=== PATIENT | female | born 1980 | race African-American/Black ===

== ENCOUNTER 2016-08-30 09:46 | Emergency (ER) | payer MEDICAID ==
[2016-08-30] MEDS ORDERED: OXYCODONE-ACETAMINOPHEN 5-325 MG TABLET PO ONE (09:52)
--- NOTE | 2016-08-30 09:52 | ER Document Report ---
ED Medical Screen (RME) - General Chief Complaint: Abscess Stated Complaint: ABSCESS Time seen by provider: 09:50 Mode of Arrival: Ambulatory Information source: Patient Notes: 36 yo female presents to ed for abscess to right abdomen and left arm TRAVEL OUTSIDE OF THE [place] IN LAST 30 DAYS: No - Related Data Allergies/Adverse Reactions: meperidine HCl [From Demerol] Allergy (Severe, Verified 07/17/16 09:52) Anaphylaxis prednisone [Prednisone] Allergy (Severe, Verified 07/17/16 09:52) swell-up morphine [Morphine] Adverse Reaction (Mild, Verified 07/17/16 09:52) Hives Past Medical History - Past Medical History Cardiac Medical History: Reports: Hx Hypertension Denies: Hx Coronary Artery Disease, Hx Heart Attack Pulmonary Medical History: Reports: Hx Asthma Denies: Hx Bronchitis, Hx COPD, Hx Pneumonia - Sarcoidosis Neurological Medical History: Reports: Hx Migraine. Denies: Hx Cerebrovascular Accident, Hx Seizures Endocrine Medical History: Denies: Hx Hyperthyroidism, Hx Hypothyroidism Renal/ Medical History: Reports: Hx Ovarian Cysts GI Medical History: Reports: Hx Gastritis, Hx Hiatal Hernia, Hx Ulcer - H pylori , sarcoidosis, fibromyalgia Musculoskeltal Medical History: Reports Hx Arthritis, Reports Hx Fibromyalgia Psychiatric Medical History: Reports: Hx Depression Past Surgical History: Reports: Hx Gynecologic Surgery - polyps, ovarian cysts, Hx Orthopedic Surgery - ganglion cyst, Hx Tubal Ligation - Immunizations Immunizations up to date: Yes Hx Diphtheria, Pertussis, Tetanus Vaccination: Yes - January 2015
[2016-08-30] MEDS ORDERED: LIDOCAINE 1%/EPINEPHRINE INJ 20 ML VIAL INJ ONE (10:34)
--- NOTE | 2016-08-30 10:46 | ER Document Report ---
ED General - General Chief Complaint: Abscess Stated Complaint: ABSCESS Time seen by provider: 10:30 Mode of Arrival: Ambulatory Information source: Patient Notes: 36-year-old female claims a one-week history of pain and redness and swelling to her left axilla and her right lower abdomen typical for what she's had in the past with abscesses requiring drainage. She reports having had chills 2 days ago and one episode of vomiting but denies currently having fever, chills, nausea, vomiting, cough, shortness breath, headache, or pain elsewhere. Physical Exam: General: Alert, appears well. HEENT: Normocephalic. Atraumatic. PERRLA. Extraocular movements intact. Oropharynx clear. Neck: Supple. Non-tender. Respiratory: No respiratory distress. Clear and equal breath sounds bilaterally. Cardiovascular: Regular rate and rhythm. Abdominal: Normal Inspection. Soft, 1 cm area of erythema with central pustule to the right lower abdomen with no surrounding crepitance or fluctuance.. No distension. Normal Bowel Sounds. Back: Non-tender. No deformity or step off. Extremities: Moves all four extremities. Upper extremities: Normal inspection. Non-tender. Normal color. Normal ROM. Normal temperature. Left axilla has a 2 x 2 centimeter area of erythema induration firmness and tenderness no surrounding crepitance or fluctuance. Lower extremities: Normal inspection. Non-tender. No edema. Normal color. Normal ROM. Normal temperature. Neurological: Speech clear mentation normal Psychological: Normal affect. Normal Mood. Skin: Warm. Dry. Normal color. TRAVEL OUTSIDE OF THE [place] IN LAST 30 DAYS: No - Related Data Allergies/Adverse Reactions: meperidine HCl [From Demerol] Allergy (Severe, Verified 07/17/16 09:52) Anaphylaxis prednisone [Prednisone] Allergy (Severe, Verified 07/17/16 09:52) swell-up morphine [Morphine] Adverse Reaction (Mild, Verified 07/17/16 09:52) Hives Past Medical History - General Information source: Patient - Social History Smoking Status: Former Smoker Family History: Arthritis, DM, Hypertension, Malignancy Patient has suicidal ideation: No Patient has homicidal ideation: No - Past Medical History Cardiac Medical History: Reports: Hx Hypertension Denies: Hx Coronary Artery Disease, Hx Heart Attack Pulmonary Medical History: Reports: Hx Asthma Denies: Hx Bronchitis, Hx COPD, Hx Pneumonia - Sarcoidosis Neurological Medical History: Reports: Hx Migraine. Denies: Hx Cerebrovascular Accident, Hx Seizures Endocrine Medical History: Denies: Hx Hyperthyroidism, Hx Hypothyroidism Renal/ Medical History: Reports: Hx Ovarian Cysts. Denies: Hx Peritoneal Dialysis GI Medical History: Reports: Hx Gastritis, Hx Hiatal Hernia, Hx Ulcer - H pylori , sarcoidosis, fibromyalgia Musculoskeltal Medical History: Reports Hx Arthritis, Reports Hx Fibromyalgia Psychiatric Medical History: Reports: Hx Depression Past Surgical History: Reports: Hx Gynecologic Surgery - polyps, ovarian cysts, Hx Orthopedic Surgery - ganglion cyst, Hx Tubal Ligation - Immunizations Immunizations up to date: Yes Hx Diphtheria, Pertussis, Tetanus Vaccination: Yes - January 2015 Review of Systems - Review of Systems Constitutional: See HPI EENT: denies: Ear pain, Throat pain Cardiovascular: denies: Chest pain Respiratory: denies: Cough, Short of breath Gastrointestinal: denies: Nausea Genitourinary: denies: Burning, Dysuria Musculoskeletal: denies: Back pain Hematologic/Lymphatic: denies: Swollen glands Neurological/Psychological: denies: Weakness, Numbness Physical Exam - Vital signs Vitals: Temp Pulse Resp BP Pulse Ox 98.2 F 92 20 131/86 H 98 08/30/16 09:48 08/30/16 09:48 08/30/16 09:48 08/30/16 09:48 08/30/16 09:48 Course - Re-evaluation Re-evalutation: 08/30/16 11:37 Patient tolerated I&D of 2 abscess sites without difficulty. She was discharged on antibiotics and medication for pain and instructed return to emergency department in 2 days for wound recheck and possible repacking in the left axilla - Vital Signs Vital signs: Temp Pulse Resp BP Pulse Ox 98.2 F 91 20 131/86 H 98 08/30/16 09:51 08/30/16 09:51 08/30/16 09:51 08/30/16 09:51 08/30/16 09:51 Procedures - Incision and Drainage Left Arm Time completed: 11:35 Type: Simple Anesthetic type: 1% Lidocaine w/epi mL's of anesthetic: 1 Blade size: 11 I&D procedure: Betadine prep applied Incision Method: Incision made by scalpel Notes: 08/30/16 11:35 1.5 cm incision performed after removal of hair around the incision site. 2 mL purulent material returned. Wound packed with iodoform Right Lower Abdomen Type: Simple Anesthetic type: 1% Lidocaine w/epi mL's of anesthetic: 1 Blade size: 11 I&D procedure: Betadine prep applied Incision Method: Incision made by scalpel Notes: 08/30/16 11:37 1 mL of purulent material returned. Abscess cavity probed no deeper areas were identified wound was shallow enough that it does not not require packing Discharge - Discharge Clinical Impression: Abscess Condition: Stable Disposition: HOME, SELF-CARE Instructions: Abscess ([facility]) Additional Instructions: Cellulitis You have an infection of your skin and underlying soft tissues called cellulitis. This is due to bacteria, which can enter through any break in the skin, or even through an irritated hair follicle. Untreated, cellulitis will usually worsen. Antibiotics are required. Usually, warm packs or warm soaks, and elevation of the infected area are recommended. You should start getting better within 24 to 36 hours. Most infections respond quickly to the right medication. Follow-up care is important, however, to check for abscess (boil) formation, unsuspected foreign body, or resistant infection. If you develop fever, chills, or if the area of infection is becoming rapidly more swollen or painful, call the doctor at once. Take antibiotics as prescribed. Return to emergency department in 2 days for wound recheck and possible repacking of the abscess underneath your left arm Prescriptions: Cephalexin Monohydrate [Keflex 500 mg Capsule] 500 mg PO QID #40 capsule Sulfamethoxazole/Trimethoprim [Bactrim Ds Tablet] 1 each PO BID #20 tablet Tramadol HCl 50 mg PO BID PRN #10 tablet PRN Reason: For Pain Referrals: CHAD MUJICA, [facility] [Primary Care Provider] - Follow up as needed
[2016-08-30 12:15] VITALS: BP 132/74
== END 2016-08-30 12:15 | disposition home or self-care (01) ==
LOC: ER 09:46
PROC: 0H9CXZZ Drainage of Left Upper Arm Skin, External Approach (ICD-10-PCS; principal; 2016-08-30)
DX: L02.412 Cutaneous abscess of left axilla (principal); R11.10 Vomiting, unspecified; Z87.891 Personal history of nicotine dependence
CPT/HCPCS: 99283; 10060; J3490

== ENCOUNTER 2016-09-16 09:34 | Emergency (ER) | payer MEDICAID ==
[2016-09-16] MEDS ORDERED: PROMETHAZINE HCL 25 MG TABLET PO ONE (09:59)
[2016-09-16] MEDS ORDERED: OXYCODONE-ACETAMINOPHEN 5-325 MG TABLET PO ONE (09:59)
[2016-09-16] MEDS ORDERED: LIDOCAINE 1%/EPINEPHRINE INJ 20 ML VIAL INJ ONE (09:59)
--- NOTE | 2016-09-16 10:08 | ER Document Report ---
ED Skin Rash/Insect Bite/Abscs - General Chief Complaint: Abscess Stated Complaint: ARM PAIN Notes: Patient has a painful swelling in the left axilla. She says that 2 weeks ago she was here and this area was opened and drained and she was put on Bactrim and Keflex. She's only been able to take the Keflex because she says she is allergic to Bactrim, it causes her to break out in a rash. She says that the area did not ever completely clear up and as swollen back up and become painful again. It has not drained. She has had this area drained one other time back in the fall of this past year (2016). Denies fever. TRAVEL OUTSIDE OF THE [place] IN LAST 30 DAYS: No - Related Data Allergies/Adverse Reactions: meperidine HCl [From Demerol] Allergy (Severe, Verified 07/17/16 09:52) Anaphylaxis prednisone [Prednisone] Allergy (Severe, Verified 07/17/16 09:52) swell-up morphine [Morphine] Adverse Reaction (Mild, Verified 07/17/16 09:52) Hives Past Medical History - Social History Smoking Status: Never Smoker Chew tobacco use (# tins/day): No Frequency of alcohol use: None Drug Abuse: None Family History: Reviewed & Not Pertinent, Arthritis, DM, Hypertension, Malignancy Patient has suicidal ideation: No Patient has homicidal ideation: No - Past Medical History Cardiac Medical History: Reports: Hx Hypertension Pulmonary Medical History: Reports: Hx Asthma Neurological Medical History: Reports: Hx Migraine Renal/ Medical History: Reports: Hx Ovarian Cysts GI Medical History: Reports: Hx Gastritis, Hx Hiatal Hernia, Hx Ulcer - H pylori , sarcoidosis, fibromyalgia Musculoskeltal Medical History: Reports Hx Arthritis, Reports Hx Fibromyalgia, Reports Other - Sjogren's syndrome, sarcoidosis Psychiatric Medical History: Reports: Hx Depression Past Surgical History: Reports: Hx Gynecologic Surgery - polyps, ovarian cysts, Hx Orthopedic Surgery - ganglion cyst, Hx Tubal Ligation - Immunizations Immunizations up to date: Yes Hx Diphtheria, Pertussis, Tetanus Vaccination: Yes - January 2015 Review of Systems - Review of Systems Notes: REVIEW OF SYSTEMS: CONSTITUTIONAL : Denies fever. EENT: Denies eye, ear, nose or mouth or throat pain or other symptoms. CARDIOVASCULAR: Denies chest pain. RESPIRATORY: Denies cough, chest congestion, or shortness of breath. GASTROINTESTINAL: Denies abdominal pain or nausea, vomiting, or diarrhea. GENITOURINARY: Denies difficulty or painful urinating, urinary frequency, blood in urine. MUSCULOSKELETAL: Denies back or neck pain. Denies joint pain or swelling. SKIN: See history of present illness. NEUROLOGICAL: Denies LOC or altered mental status. Denies headache. Denies sensory loss or motor deficits. PSYCHIATRIC: Denies anxiety or stress. Denies depression. ALL OTHER SYSTEMS REVIEWED AND NEGATIVE. Physical Exam - Vital signs Vitals: Resp 14 09/16/16 10:00 Interpretation: Normal - Temp 98.0, pulse 95, blood pressure 136/85, respirations 24, O2 sat 98%. - Notes Notes: PHYSICAL EXAMINATION: GENERAL: Well-appearing, in no acute distress. Vital signs are all normal. HEAD: Atraumatic, normocephalic. LUNGS: Breath sounds clear and equal bilaterally. HEART: Regular rate and rhythm without murmurs. ABDOMEN: Soft, nontender. No guarding or rebound. EXTREMITIES: Normal range of motion without pain. NEUROLOGICAL: Normal speech, normal gait. Normal sensory, motor, and reflex exams. Awake, alert, and oriented x3. Cranial nerves normal. PSYCH: Normal mood, normal affect. SKIN: Warm, dry, no rashes. Left axilla has a couple of scars most likely from previous procedures performed in this area. Towards the anterior aspect of the left axilla is a swollen tender area that feels slightly fluctuant. No other areas of fluctuance noted. Course - Re-evaluation Re-evalutation: 09/16/16 21:44 I am deferring putting the patient on any antibiotic until we get the culture results. These are minor abscesses and were easy to drain and pack and since the patient reports being allergic to sulfa, I'm going to wait and not start her on another antibiotic unless she is not doing well in a couple of days. - Vital Signs Vital signs: Temp Pulse Resp BP Pulse Ox 98.2 F 92 16 132/80 H 98 09/16/16 11:46 09/16/16 11:46 09/16/16 11:46 09/16/16 11:46 09/16/16 11:46 Procedures - Incision and Drainage Left Arm Axilla Type: Simple Anesthetic type: 1% Lidocaine w/epi Blade size: 11 I&D procedure: Betadine prep applied, Iodoform packing placed Incision Method: Incision made by scalpel Notes: 09/16/16 21:43 2 small pockets with fluctuance felt anesthetized and opened and widened with a hemostat. Irrigated each of the pockets and then packed them with iodoform gauze. Adult Front & Back picture: 1 - Small abscesses (2) in the left axilla, opened, drained, and packed. Discharge - Discharge Clinical Impression: Abscess of left axilla Condition: Stable Disposition: HOME, SELF-CARE Additional Instructions: ABSCESS: You have an abscess (boil). This a pus-forming infection, usually due to staph. Some boils may be left to drain on their own, but most require lancing. From the time the tender lump first appears, it may be three or four days before the abscess is ready to elias. Local heat and rest help at this stage of treatment. An antibiotic may prevent spread of the infection. Once the abscess is opened, packing may be placed into it. This is done so pus is not sealed inside by premature closure of the cavity. The packing will be removed at your follow-up visit or you may be advised to remove it yourself at home. Sometimes this packing must be replaced a few times during healing. The wound will heal with surprisingly little scar. Depending on the size and location of an abscess, healing can take one to four weeks. You may shower and wash the area around the incision site two or three times a day. Antibiotics may be prescribed, but are usually not necessary after an abscess has been drained. If you develop fever, chills, worsening pain, or increasing swelling in the area, call the doctor or return immediately. POST INCISION AND DRAINAGE: You have had an incision made to allow drainage of an abscess. The incision must remain open so that pus and debris can drain from the wound. If the abscess cavity is large, packing is placed. This keeps the tissues from collapsing and trapping pus inside, while the body shrinks the cavity. The packing may need to be replaced every day or two. The physician will instruct you on the packing. Keep a bulky dressing over the area. Replace it if it becomes saturated with blood or pus. Do not disturb the packing (if present). You may shower and cleanse the area with gentle soap and warm water two or three times a day. Local warmth may be soothing, and may promote faster healing. Return if you develop high fever or chills, or if you note spreading redness, increasing swelling, or increasing tenderness. ORAL NARCOTIC MEDICATION: You have been given a prescription for pain control. This medication is a narcotic. It's best taken with food, as nausea can result if taken on an empty stomach. Don't operate machinery or drive within six hours of taking this medication. Do not combine this medicine with alcohol, or with any medication which can cause sedation (such as cold tablets or sleeping pills) unless you get permission from the physician. Narcotics tend to cause constipation. If possible, drink plenty of fluids and eat a diet high in fiber and fruits. Antinausea Medication You have been given a medication to suppress nausea and vomiting. This type of medication can be given as a shot, pill, or suppository. It will usually last for many hours. Pills and shots usually last six to eight hours, suppositories last about 12 hours. For the typical illness, only one or two doses of the medication may be necessary. Mild lightheadedness may occur. This type of medicine can cause drowsiness. Do not drive or operate dangerous machinery while under its influence. Do not mix with alcohol. See your doctor at once if you have muscle spasms or tightness, or uncontrollable motions (particularly of the neck, mouth, or jaw). Persistent vomiting or severe lightheadedness should also be evaluated by the physician. FOLLOW-UP CARE: Most simple abscesses will not require a follow up visit. If you had packing placed in the abscess, remove it as instructed by the physician. If you have been referred to a physician for follow-up care, call the physicians office for an appointment as you were instructed or within the next two days. If you experience worsening or a significant change in your symptoms, return to the Emergency Department at any time for re-evaluation. Once a day get in the shower and let some warm shower water flow on to the left armpit for about 5 minutes. Then, throughout the day, apply warm wet compresses like a hand towel to the area for 20 or 30 minutes at least or times a day area On Tuesday, when you get in the shower and let the water run on the area, you can pull both of the packings out and discarded them in the trash. I will call you on Tuesday regarding the culture results and to see if you need to be put on an antibiotic. If you do not hear from me on Tuesday by 3 or 4:00 in the afternoon, call me on my cell phone number which I have given you on my card. Prescriptions: Oxycodone HCl/Acetaminophen [Percocet 5-325 mg Tablet] 1 - 2 tab PO Q4H PRN #15 tablet PRN Reason: Promethazine HCl [Phenergan 25 mg Tablet] 1 - 2 tab PO Q6H PRN #15 tablet PRN Reason: Referrals: CHAD MUJICA, [facility] [Primary Care Provider] - Follow up as needed
[2016-09-16 11:47] VITALS: BP 132/80
== END 2016-09-16 11:47 | disposition home or self-care (01) ==
LOC: ER 09:34
PROC: 0H9CXZZ Drainage of Left Upper Arm Skin, External Approach (ICD-10-PCS; principal; 2016-09-16)
DX: L02.412 Cutaneous abscess of left axilla (principal); I10 Essential (primary) hypertension; Z98.51 Tubal ligation status; Z88.6 Allergy status to analgesic agent
CPT/HCPCS: 99283; 87070; 87205; 87077; 87186; 10060; J3490 ×2

== ENCOUNTER 2016-10-28 14:07 | Emergency (ER) | payer MEDICAID ==
[2016-10-28] MEDS ORDERED: ONDANSETRON 4 MG TAB.RAPDIS PO ONE (14:17)
--- NOTE | 2016-10-28 14:18 | ER Document Report ---
ED Medical Screen (RME) - General Stated Complaint: NAUSEA,DIARRHEA,ABDOMINAL PAIN Mode of Arrival: Ambulatory Information source: Patient Notes: Patient presents complaining of nausea, vomiting and diarrhea off and on for the past 2 weeks. Patient states symptoms restarted 3 days ago. Patient complains of generalized abdominal pain. Patient reports chills without fever. Patient concerned she is dehydrated hx: Sarcoidosis, Sjogren's syndrome, fibromyalgia I have greeted and performed a rapid initial assessment of this patient. A comprehensive ED assessment and evaluation of the patient, analysis of test results and completion of the medical decision making process will be conducted by additional ED providers. TRAVEL OUTSIDE OF THE [place] IN LAST 30 DAYS: No - Related Data Allergies/Adverse Reactions: meperidine HCl [From Demerol] Allergy (Severe, Verified 07/17/16 09:52) Anaphylaxis prednisone [Prednisone] Allergy (Severe, Verified 07/17/16 09:52) swell-up morphine [Morphine] Adverse Reaction (Mild, Verified 07/17/16 09:52) Hives Past Medical History - Past Medical History Cardiac Medical History: Reports: Hx Hypertension Pulmonary Medical History: Reports: Hx Asthma Denies: Hx Pneumonia - Sarcoidosis Neurological Medical History: Reports: Hx Migraine Renal/ Medical History: Reports: Hx Ovarian Cysts. Denies: Hx Peritoneal Dialysis GI Medical History: Reports: Hx Gastritis, Hx Hiatal Hernia, Hx Ulcer - H pylori , sarcoidosis, fibromyalgia Musculoskeltal Medical History: Reports Hx Arthritis, Reports Hx Fibromyalgia Psychiatric Medical History: Reports: Hx Depression Past Surgical History: Reports: Hx Gynecologic Surgery - polyps, ovarian cysts, Hx Orthopedic Surgery - ganglion cyst, Hx Tubal Ligation - Immunizations Immunizations up to date: Yes Hx Diphtheria, Pertussis, Tetanus Vaccination: Yes - January 2015 Physical Exam - Vital signs Vitals: Temp Pulse Resp BP Pulse Ox 98.5 F 71 16 143/99 H 99 10/28/16 14:14 10/28/16 14:14 10/28/16 14:14 10/28/16 14:14 10/28/16 14:14 - Abdominal Tenderness: Tender - Was happening Course - Vital Signs Vital signs: Temp Pulse Resp BP Pulse Ox 98.5 F 71 16 143/99 H 99 10/28/16 14:14 10/28/16 14:14 10/28/16 14:14 10/28/16 14:14 10/28/16 14:14
[2016-10-28 15:06] LABS: ABSOLUTE EOSINOPHILS # (AUTO) 0.1 10^3/uL (0.0-0.6); ABSOLUTE LYMPHOCYTES (AUTO) 2.7 10^3/uL (0.5-4.7); ABSOLUTE MONOCYTES (AUTO) 0.3 10^3/uL (0.1-1.4); ABSOLUTE NEUT (AUTO) 3.4 10^3/uL (1.7-8.2); BASOPHILS % (AUTO) 0.7 % (0-2); EOSINOPHILS % (AUTO) 1.1 % (0-6); HEMOGLOBIN 13.5 g/dL (12.0-15.5); HGB HCT DIFFERENCE 1.5; MEAN CORPUSCULAR HGB CONC 34.7 g/dL (32.0-36.0); MEAN CORPUSCULAR VOLUME 78 fl (80-97); MONOCYTES % (AUTO) 4.1 % (3-13); SEGMENTED NEUTROPHILS % (AUTO) 52.1 % (42-78); WHITE BLOOD COUNT 6.5 10^3/uL (4.0-10.5)
[2016-10-28 15:13] LABS: APPEARANCE,URINE SLIGHTLY-CLOUDY; BILIRUBIN,URINE NEGATIVE (NEGATIVE); GLUCOSE, URINE NEGATIVE (NEGATIVE); KETONES,URINE NEGATIVE (NEGATIVE); LEUKOCYTE ESTERASE,URINE SMALL (NEGATIVE); NITRITE,URINE NEGATIVE (NEGATIVE); PROTEIN,URINE NEGATIVE (NEGATIVE); UROBILINOGEN,URINE NEGATIVE mg/dL (<2.0)
[2016-10-28 15:37] LABS: ALANINE AMINOTRANSFERASE 26 U/L (9-52); ALBUMIN 4.6 g/dL (3.5-5.0); ALKALINE PHOSPHATASE 68 U/L (38-126); ANION GAP 14 (5-19); ASPARTATE AMINO TRANSFERASE 21 U/L (14-36); BILIRUBIN,DIRECT 0.3 mg/dL (0.0-0.4); BILIRUBIN,TOTAL 0.5 mg/dL (0.2-1.3); BLOOD UREA NITROGEN 7 mg/dL (7-20); CALCIUM 9.9 mg/dL (8.4-10.2); CARBON DIOXIDE 22 mmol/L (22-30); CHLORIDE 108 mmol/L (98-107); CREATININE RESULT 0.61 mg/dL (0.52-1.25); GLUCOSE 78 mg/dL (75-110); LIPASE 80.1 U/L (23-300); POTASSIUM 4.1 mmol/L (3.6-5.0); TOTAL PROTEIN 8.1 g/dL (6.3-8.2)
--- NOTE | 2016-10-28 16:02 | ER Document Report ---
ED GI/ - General Time seen by provider: 16:05 Mode of Arrival: Ambulatory TRAVEL OUTSIDE OF THE [place] IN LAST 30 DAYS: No - HPI Patient complains to provider of: Abdominal pain, Diarrhea. No: Vomiting Onset: Other - see HPI note Timing/Duration: Persistent Quality of pain: Sharp Associated symptoms: Diarrhea, Nausea. denies: Vomiting <MILES JUAREZ - Last Filed: 10/28/16 18:04> <MÓNICA PALACIOS - Last Filed: 10/28/16 18:18> - General Chief Complaint: Abdominal Pain Stated Complaint: NAUSEA,DIARRHEA,ABDOMINAL PAIN Notes: Patient is a 36 year old female presenting to the emergency department for diarrhea, nausea, and abdominal pain. Patient states she has had these symptoms for the past 3 weeks. Patient states her abdominal pain started first and then the nausea and diarrhea were onset for about 2 weeks. Patient states her symptoms stopped for a few days and then started again on Tuesday. Patient states today she has had the abdominal pain, nausea, and diarrhea x6. Patient's diarrhea is watery, mucus like, and sometimes very dark/black. Patient states she has sharp abdominal pain and then the diarrhea comes next. Patient took pepto-bismol with no relief and has been drinking maranda roopa for her nausea. Patient denies any vomiting or dysuria symptoms. Patient has a history of IBS but states that her current symptoms are not consistent with her IBS. Patient's PCP is Dr. Joseph. (MILES JUAREZ) - Related Data Allergies/Adverse Reactions: meperidine HCl [From Demerol] Allergy (Severe, Verified 07/17/16 09:52) Anaphylaxis prednisone [Prednisone] Allergy (Severe, Verified 07/17/16 09:52) swell-up sulfamethoxazole [From Bactrim] Allergy (Verified 10/28/16 14:17) trimethoprim [From Bactrim] Allergy (Verified 10/28/16 14:17) morphine [Morphine] Adverse Reaction (Mild, Verified 07/17/16 09:52) Hives Past Medical History - General Information source: Patient - Social History Smoking Status: Former Smoker Chew tobacco use (# tins/day): No Frequency of alcohol use: None Drug Abuse: None Family History: Reviewed & Not Pertinent, Arthritis, DM, Hypertension, Malignancy Patient has suicidal ideation: No Patient has homicidal ideation: No - Past Medical History Cardiac Medical History: Reports: Hx Hypertension Pulmonary Medical History: Reports: Hx Asthma Comment Only: Hx Pneumonia - Sarcoidosis Neurological Medical History: Reports: Hx Migraine Renal/ Medical History: Reports: Hx Ovarian Cysts GI Medical History: Reports: Hx Gastritis, Hx Hiatal Hernia, Hx Ulcer - H pylori , sarcoidosis, fibromyalgia Musculoskeltal Medical History: Reports Hx Arthritis, Reports Hx Fibromyalgia Psychiatric Medical History: Reports: Hx Depression Past Surgical History: Reports: Hx Gynecologic Surgery - polyps, ovarian cysts, Hx Orthopedic Surgery - ganglion cyst, Hx Tubal Ligation - Immunizations Immunizations up to date: Yes Hx Diphtheria, Pertussis, Tetanus Vaccination: Yes - January 2015 <MILES JUAREZ - Last Filed: 10/28/16 18:04> Review of Systems - Review of Systems Constitutional: No symptoms reported EENT: No symptoms reported Cardiovascular: No symptoms reported Respiratory: No symptoms reported Gastrointestinal: See HPI, Abdominal pain, Diarrhea, Nausea. denies: Vomiting Genitourinary: No symptoms reported Female Genitourinary: No symptoms reported Musculoskeletal: No symptoms reported Skin: No symptoms reported Hematologic/Lymphatic: No symptoms reported Neurological/Psychological: No symptoms reported -: Yes All other systems reviewed and negative <MILES JUAREZ - Last Filed: 10/28/16 18:04> Physical Exam - Vital signs Interpretation: Hypertensive <MILES JUAREZ - Last Filed: 10/28/16 18:04> <MÓNICA PALACIOS - Last Filed: 10/28/16 18:18> - Vital signs Vitals: Temp Pulse Resp BP Pulse Ox 98.5 F 71 16 143/99 H 99 10/28/16 14:14 10/28/16 14:14 10/28/16 14:14 10/28/16 14:14 10/28/16 14:14 - Notes Notes: GENERAL: Well-appearing, well-nourished and in no acute distress HEAD: Atraumatic, normocephalic EYES: Pupils equal round and reactive to light, extraocular movements intact, sclera anicteric, no conjunctival injection or discharge ENT: Nares patent, oropharynx clear without exudates, moist mucous membranes NECK: Normal range of motion, supple without lymphadenopathy LUNGS: Breath sounds clear to auscultation bilaterally and equal. No wheezes rales or rhonchi HEART: Regular rate and rhythm without murmurs ABDOMEN: Soft, mild generalized tenderness throughout, hyperactive bowel sounds. No guarding, no rebound, no rigidity. No masses appreciated. No [place] sign. BACK: No CVA tenderness. EXTREMITIES: Normal range of motion, no calf tenderness, no edema NEUROLOGICAL: Cranial nerves grossly intact. Normal speech, Normal sensory and motor exams. No gross cerebellar abnormalities PSYCH: Normal mood, normal affect SKIN: Warm, Dry, normal turgor, no lesions noted (MILES JUAREZ) Course - Laboratory Result Diagrams: 10/28/16 14:20 10/28/16 14:20 <MILES JUAREZ - Last Filed: 10/28/16 18:04> - Laboratory Result Diagrams: 10/28/16 14:20 10/28/16 14:20 <MÓNICA PALACIOS - Last Filed: 10/28/16 18:18> - Re-evaluation Re-evalutation: 10/28/16 18:12 Despite the patient having significant diarrhea at home she has not had any here even with by mouth fluids. She is having no dysuria but does have some WBCs so we'll place her on Cipro, which could help the diarrhea she is having some mucoid stools as well. She understands warning signs to watch for and will return if she is worsening. She appears well-hydrated, nontoxic with a non -peritoneal abdomen. (MÓNICA PALACIOS) - Vital Signs Vital signs: Temp Pulse Resp BP Pulse Ox 98.5 F 71 16 143/99 H 99 10/28/16 14:14 10/28/16 14:14 10/28/16 14:14 10/28/16 14:14 10/28/16 14:14 - Laboratory Laboratory results interpreted by me: 10/28/16 10/28/16 10/28/16 14:20 14:20 14:20 MCV 78 L RDW 15.0 H Chloride 108 H Urine Blood SMALL H Ur Leukocyte Esterase SMALL H Discharge <MILES JUAREZ - Last Filed: 10/28/16 18:04> <MÓNICA PALACIOS - Last Filed: 10/28/16 18:18> - Discharge Clinical Impression: Diarrhea Qualifiers: Diarrhea type: unspecified type Qualified Code(s): R19.7 - Diarrhea, unspecified Abdominal pain Qualifiers: Abdominal location: generalized Qualified Code(s): R10.84 - Generalized abdominal pain Condition: Good Disposition: HOME, SELF-CARE Instructions: Antispasmodics ([facility]), Antinausea Medication ([facility]) Prescriptions: Hyoscyamine Sulfate [Levsin 0.125 Tablet] 0.25 mg PO Q6HP PRN #14 tablet PRN Reason: Ciprofloxacin HCl [Cipro 500 mg Tablet] 500 mg PO BID #6 tablet Promethazine HCl [Phenergan 25 mg Tablet] 1 - 2 tab PO Q6H PRN #15 tablet PRN Reason: Scribe Documentation - Scribe Written by Scribe:: Miles Juarez 10/28/16 17:20 acting as scribe for :: Valdemar <MILES JUAREZ - Last Filed: 10/28/16 18:04>
[2016-10-28 18:41] VITALS: BP 138/94
== END 2016-10-28 18:41 | disposition home or self-care (01) ==
LOC: ER 14:07
DX: R10.84 Generalized abdominal pain (principal); R10.817 Generalized abdominal tenderness; R11.0 Nausea; R19.7 Diarrhea, unspecified; I10 Essential (primary) hypertension; J45.909 Unspecified asthma, uncomplicated; Z88.5 Allergy status to narcotic agent; Z87.19 Personal history of other diseases of the digestive system; Z88.8 Allergy status to other drugs, medicaments and biological substances; Z88.1 Allergy status to other antibiotic agents; Z87.891 Personal history of nicotine dependence
CPT/HCPCS: 99284; 36415; 83690; 84703; 85025; 80053; 81001; S0119

== ENCOUNTER 2016-12-02 10:01 | Emergency (ER) | payer MEDICAID ==
--- NOTE | 2016-12-02 10:18 | ER Document Report ---
ED General - General Time seen by provider: 10:15 Mode of Arrival: Ambulatory Information source: Patient TRAVEL OUTSIDE OF THE [place] IN LAST 30 DAYS: No - HPI Onset: Other - see HPI note Similar symptoms previously: Yes Recently seen / treated by doctor: No - General Chief Complaint: Pain All Over Stated Complaint: BODYACHES, WEAKNESS Notes: Patient is a 36-year-old female presented department for some shortness of breath, pain in legs, dry cough, and headache. Patient states she has a history of sarcoidosis and states that she believes this is a flareup of her disease. Patient states that she is taking steroids and she has inhalers and albuterol nebulizer machines at home to take as well. Patient states she saw a doctor at [facility] took her off of her oral steroid and put her on a nebulizer steroid instead. Patient states she does not like pain management. Patient states her new primary care physician is Dr. Fisher and she sees this physician this coming week. Patient denies any history of bloodclots but states she has osteoarthritis in her back. (MILES BENSON) - Related Data Allergies/Adverse Reactions: meperidine HCl [From Demerol] Allergy (Severe, Verified 12/02/16 10:09) Anaphylaxis prednisone [Prednisone] Allergy (Severe, Verified 12/02/16 10:09) swell-up sulfamethoxazole [From Bactrim] Allergy (Verified 12/02/16 10:09) trimethoprim [From Bactrim] Allergy (Verified 12/02/16 10:09) morphine [Morphine] Adverse Reaction (Mild, Verified 12/02/16 10:09) Hives Past Medical History - General Information source: Patient - Social History Smoking Status: Unknown if Ever Smoked Family History: Arthritis, DM, Hypertension, Malignancy Patient has suicidal ideation: No Patient has homicidal ideation: No - Past Medical History Cardiac Medical History: Reports: Hx Hypertension Pulmonary Medical History: Reports: Hx Asthma Comment Only: Hx Pneumonia - Sarcoidosis Neurological Medical History: Reports: Hx Migraine Renal/ Medical History: Reports: Hx Ovarian Cysts GI Medical History: Reports: Hx Gastritis, Hx Hiatal Hernia, Hx Ulcer - H pylori , sarcoidosis, fibromyalgia Musculoskeltal Medical History: Reports Hx Arthritis - osteo, Reports Hx Fibromyalgia Psychiatric Medical History: Reports: Hx Depression Past Surgical History: Reports: Hx Gynecologic Surgery - polyps, ovarian cysts, Hx Orthopedic Surgery - ganglion cyst, Hx Tubal Ligation - Immunizations Immunizations up to date: Yes Hx Diphtheria, Pertussis, Tetanus Vaccination: Yes - January 2015 Review of Systems - Review of Systems Constitutional: See HPI EENT: No symptoms reported Cardiovascular: No symptoms reported Respiratory: See HPI Gastrointestinal: No symptoms reported Genitourinary: No symptoms reported Female Genitourinary: No symptoms reported Musculoskeletal: See HPI Skin: No symptoms reported Hematologic/Lymphatic: No symptoms reported Neurological/Psychological: See HPI, Headaches -: Yes All other systems reviewed and negative Physical Exam - Vital signs Interpretation: Normal - General General appearance: Appears well, Alert In distress: Mild - HEENT Head: Normocephalic, Atraumatic Eyes: Normal Pupils: PERRL Mucous membranes: Moist - Respiratory Respiratory status: No respiratory distress Chest status: Nontender Breath sounds: Normal Chest palpation: Normal - Cardiovascular Rhythm: Regular Heart sounds: Normal auscultation Murmur: No - Abdominal Inspection: Normal Distension: No distension Bowel sounds: Normal Tenderness: Nontender Organomegaly: No organomegaly - Back Back: Normal, Nontender - Extremities General upper extremity: Normal inspection, Normal ROM, Normal strength General lower extremity: Normal inspection, Normal ROM, Normal strength - Neurological Neuro grossly intact: Yes Cognition: Normal Orientation: AAOx4 [place] Coma Scale Eye Opening: Spontaneous [place] Coma Scale Verbal: Oriented [place] Coma Scale Motor: Obeys Commands [place] Coma Scale Total: 15 Speech: Normal - Psychological Associated symptoms: Normal affect, Normal mood - Skin Skin Temperature: Warm Skin Moisture: Dry Course - Re-evaluation Re-evalutation: 12/02/16 10:20 Patient with history of sarcoidosis sees a dock clerk here locally. States that she is having leg pain which gets exacerbated with her sarcoidosis. Patient has multiple ED visits for the same and has been told previously for any chronic pain related issues she follow primary care or pain specialist. On examination she is well-appearing nontoxic no acute respiratory distress normal physical examination. Tomorrow give her Percocet here any prescriptions for any additional medication need to be prescribed by the primary child care cook for pain management doctor. She lists an allergy to steroids I told her that she will have to discuss that with Dr. Berger. She is to return for increasing worsening or new symptoms 12/02/16 10:39 (RUPINDER RODRIGUEZ) - Vital Signs Vital signs: Temp Pulse Resp BP Pulse Ox 98.5 F 83 18 136/93 H 97 12/02/16 10:04 12/02/16 10:04 12/02/16 10:04 12/02/16 10:04 12/02/16 10:04 Discharge - Discharge Clinical Impression: pain exacerbation, history sarcoidosis Condition: Stable Disposition: HOME, SELF-CARE Additional Instructions: We request that you follow up with your primary care physician specialist or highway painter that I have given you information for below. They must be the ones to manage any chronic or recurrent pain related issues. 4. Primary care physician on the first as directed and return for increasing worsening or new symptoms Pain Management Dr. Heber Galvan [address] [place] [address] Forms: Return to School Referrals: HECTOR BRYANT MD [Primary Care Provider] - Follow up as needed Scribe Attestation: 12/02/16 10:22 I personally performed the services described in the documentation reviewed the documentation recorded by my scribe in my presence and it accurately and completely records my words and actions (RUPINDER RODRIGUEZ) Scribe Documentation - Scribe Written by Scribe:: Miles Benson 12/02/16 11:12 acting as scribe for :: Yannick
[2016-12-02] MEDS ORDERED: OXYCODONE-ACETAMINOPHEN 5-325 MG TABLET PO ONE (10:19)
[2016-12-02 11:26] VITALS: BP 120/89
== END 2016-12-02 10:47 | disposition home or self-care (01) ==
LOC: ER 10:01
DX: R52 Pain, unspecified (principal); D86.9 Sarcoidosis, unspecified; R53.1 Weakness; R06.02 Shortness of breath; M79.604 Pain in right leg; M79.605 Pain in left leg; R05 Cough; R51 Headache
CPT/HCPCS: 99283

== ENCOUNTER 2017-01-02 10:25 | Emergency (ER) | payer MEDICAID ==
--- NOTE | 2017-01-02 10:58 | ER Document Report ---
ED Medical Screen (RME) - General Chief Complaint: Difficulty Swallowing Stated Complaint: DIFFICULTY SWALLOWING/EYE PROBLEMS Time Seen by Provider: 01/02/17 10:48 Mode of Arrival: Ambulatory Information source: Patient Notes: This 36-year-old female patient comes emergency room complaining of styes to both eyes. Headache. Throat swelling. Difficulty swallowing. She states Dr. Walton started her on antibiotics for the styes on 12/29/2016, since then her throat is began hurting. She thinks it is a flare of her Sjogren's or sarcoidosis. She has also been diagnosed with fibromyalgia. I have greeted and performed a rapid initial assessment of this patient. A comprehensive ED assessment and evaluation of the patient, analysis of test results and completion of the medical decision making process will be conducted by additional ED providers. TRAVEL OUTSIDE OF THE U.[place]. IN LAST 30 DAYS: No - Related Data Allergies/Adverse Reactions: meperidine HCl [From Demerol] Allergy (Severe, Verified 12/02/16 10:09) Anaphylaxis prednisone [Prednisone] Allergy (Severe, Verified 12/02/16 10:09) swell-up sulfamethoxazole [From Bactrim] Allergy (Verified 12/02/16 10:09) trimethoprim [From Bactrim] Allergy (Verified 12/02/16 10:09) morphine [Morphine] Adverse Reaction (Mild, Verified 12/02/16 10:09) Hives Past Medical History - Past Medical History Cardiac Medical History: Reports: Hx Hypertension Pulmonary Medical History: Reports: Hx Asthma Comment Only: Hx Pneumonia - Sarcoidosis Neurological Medical History: Reports: Hx Migraine Renal/ Medical History: Reports: Hx Ovarian Cysts. Denies: Hx Peritoneal Dialysis GI Medical History: Reports: Hx Gastritis, Hx Hiatal Hernia, Hx Ulcer - H pylori , sarcoidosis, fibromyalgia Musculoskeltal Medical History: Reports Hx Arthritis - osteo, Reports Hx Fibromyalgia Psychiatric Medical History: Reports: Hx Depression Past Surgical History: Reports: Hx Gynecologic Surgery - polyps, ovarian cysts, Hx Orthopedic Surgery - ganglion cyst, Hx Tubal Ligation - Immunizations Immunizations up to date: Yes Hx Diphtheria, Pertussis, Tetanus Vaccination: Yes - January 2015 Physical Exam - Vital signs Vitals: Temp Pulse Resp BP Pulse Ox 98.5 F 82 18 138/101 H 99 01/02/17 10:28 01/02/17 10:28 01/02/17 10:28 01/02/17 10:28 01/02/17 10:28 Course - Vital Signs Vital signs: Temp Pulse Resp BP Pulse Ox 98.5 F 82 18 138/101 H 99 01/02/17 10:28 01/02/17 10:28 01/02/17 10:28 01/02/17 10:28 01/02/17 10:28
[2017-01-02 11:24] LABS: ABSOLUTE BASOPHILS # (AUTO) 0.1 10^3/uL (0.0-0.2); ABSOLUTE EOSINOPHILS # (AUTO) 0.1 10^3/uL (0.0-0.6); ABSOLUTE LYMPHOCYTES (AUTO) 2.4 10^3/uL (0.5-4.7); ABSOLUTE MONOCYTES (AUTO) 0.3 10^3/uL (0.1-1.4); BASOPHILS % (AUTO) 0.9 % (0-2); HEMATOCRIT 40.3 % (36.0-47.0); HGB HCT DIFFERENCE 1.7; LYMPHOCYTES % (AUTO) 35.1 % (13-45); MEAN CORPUSCULAR HEMOGLOBIN 27.1 pg (27.0-33.4); MEAN CORPUSCULAR HGB CONC 34.7 g/dL (32.0-36.0); MEAN CORPUSCULAR VOLUME 78 fl (80-97); MONOCYTES % (AUTO) 4.6 % (3-13); RED BLOOD COUNT 5.17 10^6/uL (3.72-5.28); RED CELL DISTRIBUTION WIDTH 15.5 % (11.5-14.0); SEGMENTED NEUTROPHILS % (AUTO) 58.4 % (42-78); WHITE BLOOD COUNT 6.9 10^3/uL (4.0-10.5)
[2017-01-02 11:36] LABS: ALANINE AMINOTRANSFERASE 33 U/L (9-52); ALBUMIN 4.8 g/dL (3.5-5.0); ALKALINE PHOSPHATASE 66 U/L (38-126); ANION GAP 14 (5-19); ASPARTATE AMINO TRANSFERASE 21 U/L (14-36); BILIRUBIN,DIRECT 0.2 mg/dL (0.0-0.4); BILIRUBIN,TOTAL 0.7 mg/dL (0.2-1.3); BLOOD UREA NITROGEN 5 mg/dL (7-20); C-REACTIVE PROTEIN 16.4 mg/L (<10.0); CALCIUM 10.3 mg/dL (8.4-10.2); CARBON DIOXIDE 23 mmol/L (22-30); CHLORIDE 105 mmol/L (98-107); CREATININE RESULT 0.68 mg/dL (0.52-1.25); GLUCOSE 89 mg/dL (75-110); POTASSIUM 4.3 mmol/L (3.6-5.0); SODIUM 141.7 mmol/L (137-145); TOTAL PROTEIN 8.2 g/dL (6.3-8.2)
--- NOTE | 2017-01-02 11:36 | ER Document Report ---
ED General - General Chief Complaint: Difficulty Swallowing Stated Complaint: DIFFICULTY SWALLOWING/EYE PROBLEMS Time Seen by Provider: 01/02/17 10:48 Mode of Arrival: Ambulatory Information source: Patient Notes: This is a 36-year-old -[place] female with a history of sarcoidosis and Sjogren's who presents with bilateral eye irritation, sinus congestion, sore throat, and painful swallowing as well as a dry cough for the past week. She denies any fevers. She states that she saw her primary care physician Dr. Walton on Tuesday (4 days ago) who started her on Augmentin for these symptoms. She states that she only feels worse, with continued sore throat, dry cough, and painful swallowing. She feels that maybe her autoimmune diseases are flared. Again, no fevers or chills. Tolerating po without difficulty, no dysuria, normal BM yesterday. She states she is allergic to prednisone, but tolerates decadron well, and was last on decadron in August 2016. She sees a basin operator here in town for her sarcoidosis and was last seen in October 2016. TRAVEL OUTSIDE OF THE [place] IN LAST 30 DAYS: No - Related Data Allergies/Adverse Reactions: meperidine HCl [From Demerol] Allergy (Severe, Verified 12/02/16 10:09) Anaphylaxis prednisone [Prednisone] Allergy (Severe, Verified 12/02/16 10:09) swell-up sulfamethoxazole [From Bactrim] Allergy (Verified 12/02/16 10:09) trimethoprim [From Bactrim] Allergy (Verified 12/02/16 10:09) morphine [Morphine] Adverse Reaction (Mild, Verified 12/02/16 10:09) Hives Past Medical History - General Information source: Patient - Social History Smoking Status: Never Smoker Chew tobacco use (# tins/day): No Frequency of alcohol use: None Drug Abuse: None Family History: Arthritis, DM, Hypertension, Malignancy Patient has suicidal ideation: No Patient has homicidal ideation: No - Past Medical History Cardiac Medical History: Reports: Hx Hypertension Pulmonary Medical History: Reports: Hx Asthma Comment Only: Hx Pneumonia - Sarcoidosis lungs Neurological Medical History: Reports: Hx Migraine Renal/ Medical History: Reports: Hx Ovarian Cysts. Denies: Hx Peritoneal Dialysis GI Medical History: Reports: Hx Gastritis, Hx Hiatal Hernia, Hx Ulcer - H pylori , sarcoidosis, fibromyalgia Musculoskeltal Medical History: Reports Hx Arthritis - osteo, Reports Hx Fibromyalgia Psychiatric Medical History: Reports: Hx Depression Past Surgical History: Reports: Hx Gynecologic Surgery - polyps, ovarian cysts, Hx Orthopedic Surgery - ganglion cyst, Hx Tubal Ligation - Immunizations Immunizations up to date: Yes Hx Diphtheria, Pertussis, Tetanus Vaccination: Yes - January 2015 Hx Pneumococcal Vaccination: 08/28/16 Review of Systems - Review of Systems Notes: REVIEW OF SYSTEMS: CONSTITUTIONAL : Denies fever, chills, or sweats. as per HPI EENT: as per HPI CARDIOVASCULAR: Denies chest pain. RESPIRATORY: Denies shortness of breath, difficulty breathing, or wheezing. GASTROINTESTINAL: Denies abdominal pain. Denies nausea, vomiting, or diarrhea. Denies constipation. GENITOURINARY: Denies difficulty urinating, painful urination, burning, frequency, or blood in urine. MUSCULOSKELETAL: Denies neck or back pain or joint pain or swelling. SKIN: Denies rash or skin lesions. HEMATOLOGIC : Denies easy bruising or bleeding. LYMPHATIC: Denies swollen, enlarged glands. NEUROLOGICAL: Denies altered mental status or loss of consciousness. Mild headaches and migraines PSYCHIATRIC: Denies anxiety or stress or depression. ALL OTHER SYSTEMS REVIEWED AND NEGATIVE. Physical Exam - Vital signs Vitals: Temp Pulse Resp BP Pulse Ox 98.5 F 82 18 138/101 H 99 01/02/17 10:28 01/02/17 10:28 01/02/17 10:28 01/02/17 10:28 01/02/17 10:28 - Notes Notes: PHYSICAL EXAMINATION: Vital signs noted as triaged GENERAL: Well-appearing, well-nourished and in no acute distress. Alert, pleasant, conversant. Speaking in full clear sentences and tolerating secretions without difficulty HEAD: Atraumatic, normocephalic. EYES: Pupils equal round and reactive to light, extraocular movements intact, sclera anicteric, conjunctiva minimally injected bilaterally ENT: nares patent, oropharynx clear without exudates, mild erythema. Moist mucous membranes. NECK: Normal range of motion, supple without lymphadenopathy LUNGS: Breath sounds clear to auscultation bilaterally and equal. No wheezes rales or rhonchi. HEART: Regular rate and rhythm without murmurs ABDOMEN: Soft, nontender, normoactive bowel sounds. No guarding, no rebound. No masses appreciated. EXTREMITIES: Normal range of motion, no edema NEUROLOGICAL: Cranial nerves grossly intact. Normal speech. No gross focal motor or sensory deficits PSYCH: Normal mood, normal affect. SKIN: Warm, Dry, normal turgor, no rashes or lesions noted. Course - Re-evaluation Re-evalutation: 01/02/17 11:52 Hemodynamically stable and well appearing in ER. Labs demonstrate increased inflammatory markers, will initiate steroid therapy and patient to follow up with PCP/basin operator this week. Strict return precautions discussed. She will complete her course of Augmentin as already prescribed. - Vital Signs Vital signs: Temp Pulse Resp BP Pulse Ox 98.5 F 82 18 138/101 H 99 01/02/17 10:28 01/02/17 10:28 01/02/17 10:28 01/02/17 10:28 01/02/17 10:28 - Laboratory Result Diagrams: 01/02/17 11:10 01/02/17 11:10 Laboratory results interpreted by me: 01/02/17 01/02/17 11:10 11:10 MCV 78 L RDW 15.5 H BUN 5 L Calcium 10.3 H C-Reactive Protein 16.4 H Discharge - Discharge Clinical Impression: Sarcoidosis Pharyngitis Qualifiers: Pharyngitis/tonsillitis etiology: unspecified etiology Qualified Code(s): J02.9 - Acute pharyngitis, unspecified Condition: Stable Disposition: HOME, SELF-CARE Additional Instructions: SORE THROAT: Sore throats may be caused by viruses, bacteria, or fungi. Most are due to a virus, and must get better on their own. Bacterial sore throats, particularly those due to "strep," need treatment with antibiotics. If an antibiotic is prescribed, be sure to take the medication for a full 10 days. Failure to take the antibiotic can result in complications such as rheumatic fever. Sometimes, an injection of antibiotics is given instead of pills or liquid. This single "shot" is equal in effectiveness to the oral medication. To relieve symptoms, take acetaminophen for pain. Sip clear liquids frequently, or eat popsicles or ice chips. Anesthetic sprays or lozenges may help. Make sure the air in the room is not too dry. Avoid using decongestants or antihistamines. Call the doctor if there is no improvement in two days, or if you have difficulty breathing, increasing throat pain, high fever, rash, or frequent vomiting. STEROID MEDICATION: You have been given a medicine of the cortisone/steroid class. This medication is used to control inflammation or allergy. It is usually only given for a short period of time, until the acute process subsides. There are usually no side effects from short-term use of cortisone-like medications. Some persons feel an increased sense of well-being and are not sleepy at bedtime. Long-term use of cortisone medications is best avoided, unless required for a severe condition. If your condition does not remit, or relapses after the course of corticosteroid medication, you should consult your physician. Use the eye lubricant as directed for eye irritation. FOLLOW-UP CARE: If you have been referred to a physician for follow-up care, call the physician s office for an appointment as you were instructed or within the next two days. If you experience worsening or a significant change in your symptoms, notify the physician immediately or return to the Emergency Department at any time for re-evaluation. Follow up with Dr. Levy and your basin operator this week to discuss further steroid use, as you have been given an initial dose of decadron today. Complete your course of antibiotics as already prescribed. Return to the ER for fever, breathing trouble, or any worsening symptoms or concerns. Prescriptions: Mineral Oil/Petrolatum,White [Lacri-Lube S.O.P. Ointment 3.5 Gm Tube] 1 applic BTH_EYE TID #1 tube
[2017-01-02] MEDS ORDERED: DEXAMETHASONE SOD PHOS INJ 10 MG/1 ML VIAL IM ONE (11:50)
[2017-01-02] MEDS ORDERED: DEXAMETHASONE 4 MG TABLET PO ONE (11:51)
[2017-01-02] MEDS ORDERED: KETOROLAC TROMETHAMINE 60 MG/2 ML SDV IM ONE (11:59)
[2017-01-02 12:00] LABS: ERYTHROCYTE SEDIMENTATION RATE 28 mm/hr (0-20)
[2017-01-02 12:20] VITALS: BP 113/86
== END 2017-01-02 12:25 | disposition home or self-care (01) ==
LOC: ER 10:25
DX: D86.9 Sarcoidosis, unspecified (principal); J02.9 Acute pharyngitis, unspecified; R06.02 Shortness of breath; H57.13 Ocular pain, bilateral; R09.81 Nasal congestion; R05 Cough
CPT/HCPCS: 99284; 96372; 36415; 85025; 85652; 86140; 80053; J3490; J1885

== ENCOUNTER 2017-01-03 01:47 | Emergency (ER) | payer MEDICAID ==
[2017-01-03] MEDS ORDERED: HYDROMORPHONE HCL INJ/PF 2 MG/ML AMPULE IM ONE (03:19)
--- NOTE | 2017-01-03 03:23 | ER Document Report ---
ED General - General Chief Complaint: Pain All Over Stated Complaint: PAIN ALL OVER Time Seen by Provider: 01/03/17 02:34 Notes: Patient is a 36-year-old female with past medical history of Sjogren's syndrome , sarcoidosis with chronic pain who presents again today for ongoing pain in her bilateral lower extremities and flanks. She had an extensive evaluation earlier today without clear findings or concerns admits that this is similar to her chronic pain from her autoimmune conditions. States she took a Percocet at home with minimal to no improvement of her pain. States the reason for her return visit is that her pain continues to be uncontrolled. She does describe this as a constant, dull, aching pain in the affected areas. Nothing improves or worsens the pain. She denies any associated fever, nausea, vomiting or chest pain. No shortness of breath. TRAVEL OUTSIDE OF THE [place] IN LAST 30 DAYS: No - Related Data Allergies/Adverse Reactions: meperidine HCl [From Demerol] Allergy (Severe, Verified 12/02/16 10:09) Anaphylaxis prednisone [Prednisone] Allergy (Severe, Verified 12/02/16 10:09) swell-up sulfamethoxazole [From Bactrim] Allergy (Verified 12/02/16 10:09) trimethoprim [From Bactrim] Allergy (Verified 12/02/16 10:09) morphine [Morphine] Adverse Reaction (Mild, Verified 12/02/16 10:09) Hives Past Medical History - General Information source: Patient - Social History Smoking Status: Never Smoker Frequency of alcohol use: None Drug Abuse: None Lives with: Spouse/Significant other Family History: Arthritis, DM, Hypertension, Malignancy - Past Medical History Cardiac Medical History: Reports: Hx Hypertension Pulmonary Medical History: Reports: Hx Asthma Comment Only: Hx Pneumonia - Sarcoidosis lungs Neurological Medical History: Reports: Hx Migraine Renal/ Medical History: Reports: Hx Ovarian Cysts. Denies: Hx Peritoneal Dialysis GI Medical History: Reports: Hx Gastritis, Hx Hiatal Hernia, Hx Ulcer - H pylori , sarcoidosis, fibromyalgia Musculoskeltal Medical History: Reports Hx Arthritis - osteo, Reports Hx Fibromyalgia Psychiatric Medical History: Reports: Hx Depression Past Surgical History: Reports: Hx Gynecologic Surgery - polyps, ovarian cysts, Hx Orthopedic Surgery - ganglion cyst, Hx Tubal Ligation - Immunizations Immunizations up to date: Yes Hx Diphtheria, Pertussis, Tetanus Vaccination: Yes - January 2015 Hx Pneumococcal Vaccination: 08/28/16 Review of Systems - Review of Systems Notes: Constitutional: Negative for fever. HENT: Negative for sore throat. Eyes: Negative for visual changes. Cardiovascular: Negative for chest pain. Respiratory: Negative for shortness of breath. Gastrointestinal: Negative for abdominal pain, vomiting or diarrhea. Genitourinary: Negative for dysuria. Musculoskeletal: Positive for back pain. Skin: Negative for rash. Neurological: Negative for headaches, weakness or numbness. 10 point ROS negative except as marked above and in HPI. Physical Exam - Vital signs Vitals: Temp Pulse Resp BP Pulse Ox 97.6 F 76 20 148/93 H 100 01/03/17 03:33 01/03/17 03:33 01/03/17 03:33 01/03/17 03:33 01/03/17 03:33 Interpretation: Hypertensive Notes: PHYSICAL EXAMINATION: GENERAL: Well-appearing, well-nourished and in no acute distress. HEAD: Atraumatic, normocephalic. EYES: Pupils equal round and reactive to light, extraocular movements intact, sclera anicteric, conjunctiva are normal. ENT: nares patent, oropharynx clear without exudates. Moist mucous membranes. NECK: Normal range of motion, supple without lymphadenopathy LUNGS: Breath sounds clear to auscultation bilaterally and equal. No wheezes rales or rhonchi. HEART: Regular rate and rhythm without murmurs ABDOMEN: Soft, nontender, normoactive bowel sounds. No guarding, no rebound. No masses appreciated. EXTREMITIES: Normal range of motion, no pitting or edema. No cyanosis. NEUROLOGICAL: No focal neurological deficits. Moves all extremities spontaneously and on command. PSYCH: Normal mood, normal affect. SKIN: Warm, Dry, normal turgor, no rashes or lesions noted. Course - Re-evaluation Re-evalutation: 01/03/17 03:24 Patient presents for the second time today for chronic pain related to her sarcoidosis and Sjogren's syndrome. Labs done earlier today are unremarkable and do not require a repeat if patient notes her symptoms are unchanged and she is here simply because her pain is not controlled. Vitals are within normal limits at triage and at time of discharge. Physical examination is unremarkable. Patient has tolerated oral intake without difficulty. Patient was not noted to be in distress at any point during their ER visit. At this time, based on the reassuring evaluation, I do not suspect an acute MD, pulmonary embolus, aortic dissection, acute intra-abdominal pathology, stroke, or sepsis.Will discharge with return precautions and follow-up recommendations. Verbal discharge instructions given a the bedside and opportunity for questions given. Medication warnings reviewed. Patient is in agreement with this plan and has verbalized understanding of return precautions and the need for primary care follow-up in the next 24-72 hours. - Vital Signs Vital signs: Temp Pulse Resp BP Pulse Ox 97.6 F 76 20 148/93 H 100 01/03/17 03:33 01/03/17 03:33 01/03/17 03:33 01/03/17 03:33 01/03/17 03:33 Discharge - Discharge Clinical Impression: Sarcoidosis Chronic pain Qualifiers: Chronic pain type: chronic pain syndrome Qualified Code(s): G89.4 - Chronic pain syndrome Condition: Good Disposition: HOME, SELF-CARE Additional Instructions: Please follow-up with your injection molding operator regarding your chronic pain and sarcoidosis. Please return to the emergency room immediately if you experience any concerning symptoms including high fevers, severe headache, chest pain, difficulty breathing, abdominal pain, slurred speech, numbness or weakness in your arms or legs, or any other symptom that concerns you. Prescriptions: Dexamethasone 4 mg PO DAILY #5 tablet
[2017-01-03 03:52] VITALS: BP 148/93
== END 2017-01-03 03:33 | disposition home or self-care (01) ==
LOC: ER 01:47
DX: D86.9 Sarcoidosis, unspecified (principal); G89.4 Chronic pain syndrome; R52 Pain, unspecified; M35.00 Sjogren syndrome, unspecified; G89.29 Other chronic pain
CPT/HCPCS: 99283; 96372; J1170

== ENCOUNTER 2017-01-14 09:38 | Emergency (ER) | payer MEDICAID ==
--- NOTE | 2017-01-14 10:15 | ER Document Report ---
ED Medical Screen (RME) - General Chief Complaint: Breathing Difficulty Stated Complaint: BODY PAIN Time Seen by Provider: 01/14/17 10:07 Notes: 36-year-old female patient with history of Sjogren's and sarcoidosis states she woke up in her "own little version of [place]". She is complaining of hurting all over, an abscess on her lower abdomen, and her sputum has turned yellow. She believes she has a flare of her autoimmune disorder. She is on chronic pain management. I have greeted and performed a rapid initial assessment of this patient. A comprehensive ED assessment and evaluation of the patient, analysis of test results and completion of the medical decision making process will be conducted by additional ED providers. TRAVEL OUTSIDE OF THE [place] IN LAST 30 DAYS: No - Related Data Allergies/Adverse Reactions: meperidine HCl [From Demerol] Allergy (Severe, Verified 01/14/17 09:43) Anaphylaxis prednisone [Prednisone] Allergy (Severe, Verified 01/14/17 09:43) swell-up sulfamethoxazole [From Bactrim] Allergy (Verified 01/14/17 09:43) trimethoprim [From Bactrim] Allergy (Verified 01/14/17 09:43) morphine [Morphine] Adverse Reaction (Mild, Verified 01/14/17 09:43) Hives Past Medical History - Social History Chew tobacco use (# tins/day): No Frequency of alcohol use: None Drug Abuse: None - Past Medical History Cardiac Medical History: Reports: Hx Hypertension Pulmonary Medical History: Reports: Hx Asthma Comment Only: Hx Pneumonia - Sarcoidosis lungs Neurological Medical History: Reports: Hx Migraine Renal/ Medical History: Reports: Hx Ovarian Cysts. Denies: Hx Peritoneal Dialysis GI Medical History: Reports: Hx Gastritis, Hx Hiatal Hernia, Hx Ulcer - H pylori , sarcoidosis, fibromyalgia Musculoskeltal Medical History: Reports Hx Arthritis - osteo, Reports Hx Fibromyalgia Psychiatric Medical History: Reports: Hx Depression Past Surgical History: Reports: Hx Gynecologic Surgery - polyps, ovarian cysts, Hx Orthopedic Surgery - ganglion cyst, Hx Tubal Ligation - Immunizations Immunizations up to date: Yes Hx Diphtheria, Pertussis, Tetanus Vaccination: Yes - January 2015 Physical Exam - Vital signs Vitals: Temp Pulse Resp BP Pulse Ox 98.0 F 83 18 131/86 H 98 01/14/17 09:43 01/14/17 09:43 01/14/17 09:43 01/14/17 09:43 01/14/17 09:43 Course - Vital Signs Vital signs: Temp Pulse Resp BP Pulse Ox 98.0 F 83 18 131/86 H 98 01/14/17 09:43 01/14/17 09:43 01/14/17 09:43 01/14/17 09:43 01/14/17 09:43
[2017-01-14 11:05] LABS: ABSOLUTE BASOPHILS # (AUTO) 0.1 10^3/uL (0.0-0.2); ABSOLUTE EOSINOPHILS # (AUTO) 0.1 10^3/uL (0.0-0.6); ABSOLUTE LYMPHOCYTES (AUTO) 2.5 10^3/uL (0.5-4.7); ABSOLUTE MONOCYTES (AUTO) 0.3 10^3/uL (0.1-1.4); ABSOLUTE NEUT (AUTO) 4.9 10^3/uL (1.7-8.2); BASOPHILS % (AUTO) 0.7 % (0-2); EOSINOPHILS % (AUTO) 0.6 % (0-6); HEMATOCRIT 38.6 % (36.0-47.0); HEMOGLOBIN 13.1 g/dL (12.0-15.5); HGB HCT DIFFERENCE 0.7; LYMPHOCYTES % (AUTO) 32.1 % (13-45); MEAN CORPUSCULAR HEMOGLOBIN 26.9 pg (27.0-33.4); MEAN CORPUSCULAR VOLUME 79 fl (80-97); MONOCYTES % (AUTO) 3.5 % (3-13); RED BLOOD COUNT 4.88 10^6/uL (3.72-5.28); RED CELL DISTRIBUTION WIDTH 15.8 % (11.5-14.0); SEGMENTED NEUTROPHILS % (AUTO) 63.1 % (42-78); WHITE BLOOD COUNT 7.8 10^3/uL (4.0-10.5)
[2017-01-14 11:22] LABS: ALANINE AMINOTRANSFERASE 24 U/L (9-52); ALBUMIN 4.4 g/dL (3.5-5.0); ALKALINE PHOSPHATASE 64 U/L (38-126); ANION GAP 13 (5-19); ASPARTATE AMINO TRANSFERASE 22 U/L (14-36); BILIRUBIN,DIRECT 0.3 mg/dL (0.0-0.4); BILIRUBIN,TOTAL 0.7 mg/dL (0.2-1.3); BLOOD UREA NITROGEN 9 mg/dL (7-20); CARBON DIOXIDE 19 mmol/L (22-30); CHLORIDE 108 mmol/L (98-107); CREATININE RESULT 0.69 mg/dL (0.52-1.25); GLUCOSE 102 mg/dL (75-110); POTASSIUM 4.5 mmol/L (3.6-5.0); SODIUM 139.7 mmol/L (137-145)
[2017-01-14] MEDS ORDERED: HYDROMORPHONE HCL INJ/PF 2 MG/ML AMPULE IM ONE (11:56)
--- NOTE | 2017-01-14 11:56 | ER Document Report ---
ED General - General Chief Complaint: Breathing Difficulty Stated Complaint: BODY PAIN Time Seen by Provider: 01/14/17 10:07 Mode of Arrival: Ambulatory Information source: Patient Notes: This is a 36-year-old female with a history of hypertension, sarcoidosis, chronic pain and "autoimmune disease" who presents with concern for a possible cutaneous abscess. She states that for the past few days she has had soreness to her lower anterior abdominal wall at the site of a remote surgical incision. She is concerned about possible abscess. No fevers, chills, systemic symptoms. TRAVEL OUTSIDE OF THE [place] IN LAST 30 DAYS: No - Related Data Allergies/Adverse Reactions: meperidine HCl [From Demerol] Allergy (Severe, Verified 01/14/17 09:43) Anaphylaxis prednisone [Prednisone] Allergy (Severe, Verified 01/14/17 09:43) swell-up sulfamethoxazole [From Bactrim] Allergy (Verified 01/14/17 09:43) trimethoprim [From Bactrim] Allergy (Verified 01/14/17 09:43) morphine [Morphine] Adverse Reaction (Mild, Verified 01/14/17 09:43) Hives Past Medical History - General Information source: Patient, [facility] Records - Social History Smoking Status: Never Smoker Chew tobacco use (# tins/day): No Frequency of alcohol use: None Drug Abuse: None Family History: Arthritis, DM, Hypertension, Malignancy Patient has suicidal ideation: No Patient has homicidal ideation: No - Past Medical History Cardiac Medical History: Reports: Hx Hypertension Pulmonary Medical History: Reports: Hx Asthma Comment Only: Hx Pneumonia - Sarcoidosis lungs Neurological Medical History: Reports: Hx Migraine Renal/ Medical History: Reports: Hx Ovarian Cysts. Denies: Hx Peritoneal Dialysis GI Medical History: Reports: Hx Gastritis, Hx Hiatal Hernia, Hx Ulcer - H pylori , sarcoidosis, fibromyalgia Musculoskeltal Medical History: Reports Hx Arthritis - osteo, Reports Hx Fibromyalgia Psychiatric Medical History: Reports: Hx Depression Past Surgical History: Reports: Hx Gynecologic Surgery - polyps, ovarian cysts, Hx Orthopedic Surgery - ganglion cyst, Hx Tubal Ligation - Immunizations Immunizations up to date: Yes Hx Diphtheria, Pertussis, Tetanus Vaccination: Yes - January 2015 Hx Pneumococcal Vaccination: 08/28/16 Review of Systems - Review of Systems Notes: REVIEW OF SYSTEMS: CONSTITUTIONAL : Denies fever, chills, or sweats. Denies recent illness. EENT: Denies eye, ear, throat, or mouth pain or symptoms. Denies nasal or sinus congestion. CARDIOVASCULAR: Denies chest pain. RESPIRATORY: Denies cough, cold, or chest congestion. Denies difficulty breathing, or wheezing. GASTROINTESTINAL: Denies abdominal pain. Denies nausea, vomiting, or diarrhea. GENITOURINARY: Denies difficulty urinating, painful urination, burning, frequency, or blood in urine. MUSCULOSKELETAL: chronic pain, no new symptoms today SKIN: as per HPI HEMATOLOGIC : Denies easy bruising or bleeding. LYMPHATIC: Denies swollen, enlarged glands. NEUROLOGICAL: Denies altered mental status or loss of consciousness. Denies headache. PSYCHIATRIC: Denies anxiety or stress or depression. ALL OTHER SYSTEMS REVIEWED AND NEGATIVE. Physical Exam - Vital signs Vitals: Temp Pulse Resp BP Pulse Ox 98.0 F 83 18 131/86 H 98 01/14/17 09:43 01/14/17 09:43 01/14/17 09:43 01/14/17 09:43 01/14/17 09:43 - Notes Notes: PHYSICAL EXAMINATION: GENERAL: Well-appearing, well-nourished and in no acute distress. HEAD: Atraumatic, normocephalic. EYES: Pupils equal round and reactive to light, extraocular movements intact, sclera anicteric, conjunctiva are normal. ENT: nares patent, oropharynx clear without exudates. Moist mucous membranes. NECK: Normal range of motion, supple without lymphadenopathy LUNGS: Breath sounds clear to auscultation bilaterally and equal. No wheezes rales or rhonchi. HEART: Regular rate and rhythm without murmurs ABDOMEN: Soft, nontender, normoactive bowel sounds. No guarding, no rebound. Mild erythema and TTP to anterior abdominal wall at site of prior surgical scar lower abdomen. No obvious abscess/fluctuance. EXTREMITIES: Normal range of motion, no pitting or edema. No cyanosis. NEUROLOGICAL: Cranial nerves grossly intact. No gross focal motor or sensory deficits appreciated. PSYCH: Normal mood, normal affect. Course - Vital Signs Vital signs: Temp Pulse Resp BP Pulse Ox 98.0 F 83 18 131/86 H 98 01/14/17 09:43 01/14/17 09:43 01/14/17 09:43 01/14/17 09:43 06/09/17 09:43 - Laboratory Result Diagrams: 01/14/17 10:37 01/14/17 10:37 Laboratory results interpreted by me: 01/14/17 01/14/17 10:37 10:37 MCV 79 L MCH 26.9 L RDW 15.8 H Chloride 108 H Carbon Dioxide 19 L Discharge - Discharge Clinical Impression: Cellulitis, abdominal wall Condition: Stable Disposition: HOME, SELF-CARE Additional Instructions: Cellulitis You have an infection of your skin and underlying soft tissues called cellulitis. This is due to bacteria, which can enter through any break in the skin, or even through an irritated hair follicle. Untreated, cellulitis will usually worsen. Antibiotics are required. Usually, warm packs or warm soaks, and elevation of the infected area are recommended. You should start getting better within 24 to 36 hours. Most infections respond quickly to the right medication. Follow-up care is important, however, to check for abscess (boil) formation, unsuspected foreign body, or resistant infection. If you develop fever, chills, or if the area of infection is becoming rapidly more swollen or painful, call the doctor at once. As discussed, keep your pulmonology appointment on Tuesday. Follow up with PCP Dr. Walton in 48-72 hours. Return to the ER for fever, increased redness or swelling to area, or any worsening symptoms or concerns. Prescriptions: Doxycycline Hyclate 100 mg PO BID #20 capsule
[2017-01-14 11:58] LABS: ERYTHROCYTE SEDIMENTATION RATE 24 mm/hr (0-20)
[2017-01-14 12:20] VITALS: BP 145/80
== END 2017-01-14 12:15 | disposition home or self-care (01) ==
LOC: ER 09:38
DX: L03.311 Cellulitis of abdominal wall (principal); R06.02 Shortness of breath; I10 Essential (primary) hypertension; D86.9 Sarcoidosis, unspecified; G89.29 Other chronic pain
CPT/HCPCS: 99283; 96372; 36415; 85025; 85652; 80053; J1170

== ENCOUNTER 2017-01-29 07:54 | Emergency (ER) | payer MEDICAID ==
--- NOTE | 2017-01-29 09:29 | ER Document Report ---
ED Medical Screen (RME) - General Chief Complaint: Lower Abdominal Pain Stated Complaint: ABDOMINAL PAIN Time Seen by Provider: 01/29/17 09:28 TRAVEL OUTSIDE OF THE [place] IN LAST 30 DAYS: No - HPI Notes: 01/29/17 09:28 Patient seen earlier for subcutaneous cyst in the lower abdomen region given doxycycline states that she took the antibiotics with no resolution saw PCP started on steroid cream steroid cream has not been applied yet - Related Data Allergies/Adverse Reactions: meperidine HCl [From Demerol] Allergy (Severe, Verified 01/29/17 08:01) Anaphylaxis prednisone [Prednisone] Allergy (Severe, Verified 01/29/17 08:01) swell-up sulfamethoxazole [From Bactrim] Allergy (Verified 01/29/17 08:01) trimethoprim [From Bactrim] Allergy (Verified 01/29/17 08:01) morphine [Morphine] Adverse Reaction (Mild, Verified 01/29/17 08:01) Hives Past Medical History - Social History Chew tobacco use (# tins/day): No Frequency of alcohol use: None Drug Abuse: None - Past Medical History Cardiac Medical History: Reports: Hx Hypertension Pulmonary Medical History: Reports: Hx Asthma Comment Only: Hx Pneumonia - Sarcoidosis lungs Neurological Medical History: Reports: Hx Migraine Renal/ Medical History: Reports: Hx Ovarian Cysts. Denies: Hx Peritoneal Dialysis GI Medical History: Reports: Hx Gastritis, Hx Hiatal Hernia, Hx Ulcer - H pylori , sarcoidosis, fibromyalgia Musculoskeltal Medical History: Reports Hx Arthritis - osteo, Reports Hx Fibromyalgia Psychiatric Medical History: Reports: Hx Depression - & anxiety Past Surgical History: Reports: Hx Gynecologic Surgery - polyps, ovarian cysts, Hx Orthopedic Surgery - ganglion cyst, Hx Tubal Ligation - Immunizations Immunizations up to date: Yes Hx Diphtheria, Pertussis, Tetanus Vaccination: Yes - January 2015 Review of Systems - Review of Systems Constitutional: Other - Abdominal wall knot Physical Exam - Vital signs Vitals: Temp Pulse Resp BP Pulse Ox 99.1 F 84 18 125/88 H 100 01/29/17 08:02 01/29/17 08:02 01/29/17 08:02 01/29/17 08:02 01/29/17 08:02 - Cardiovascular Rhythm: Regular Heart sounds: Normal auscultation Course - Vital Signs Vital signs: Temp Pulse Resp BP Pulse Ox 99.1 F 84 18 125/88 H 100 01/29/17 08:02 01/29/17 08:02 01/29/17 08:02 01/29/17 08:02 01/29/17 08:02
[2017-01-29] MEDS ORDERED: OXYCODONE-ACETAMINOPHEN 5-325 MG TABLET PO ONE (10:20)
--- NOTE | 2017-01-29 10:21 | ER Document Report ---
ED GI/ - General Chief Complaint: Lower Abdominal Pain Stated Complaint: ABDOMINAL PAIN Time Seen by Provider: 01/29/17 09:28 Notes: Is a 36-year-old female who presents emergency department complaining of left pelvic pain for the past 4 weeks. Patient was initially evaluated here in August for abscess on her abdomen and sent to [facility] in August and treated for cellulitis on doxycycline about 2 weeks ago. Patient states that her symptoms did not resolve after completion of antibiotic. Patient followed up with her primary care physician Dr. Bryant put on a steroid cream which she has not been using. She denies any tenderness to palpation of the skin, erythema, swelling. Patient today states that she has left pelvic pain with radiation to the middle of her pelvis and symptoms over the right. States that it is intermittent and does not improve with position changes. Patient admits to decreased appetite. Normal bowel movements. Denies any vaginal discharge, pain , itching, pyuria or hematuria. She denies any fevers or chills. Past medical history significant for extrusion syndrome, sarcoidosis, fibromyalgia. History of bladder and ovarian cysts Past surgical history significant for previous partial hysterectomy with right salpingo-oophorectomy TRAVEL OUTSIDE OF THE [place] IN LAST 30 DAYS: No - Related Data Allergies/Adverse Reactions: meperidine HCl [From Demerol] Allergy (Severe, Verified 01/29/17 08:01) Anaphylaxis prednisone [Prednisone] Allergy (Severe, Verified 01/29/17 08:01) swell-up sulfamethoxazole [From Bactrim] Allergy (Verified 01/29/17 08:01) trimethoprim [From Bactrim] Allergy (Verified 01/29/17 08:01) morphine [Morphine] Adverse Reaction (Mild, Verified 01/29/17 08:01) Hives Past Medical History - Social History Smoking Status: Former Smoker Chew tobacco use (# tins/day): No Frequency of alcohol use: None Drug Abuse: None Family History: Arthritis, DM, Hypertension, Malignancy Patient has suicidal ideation: No Patient has homicidal ideation: No - Past Medical History Cardiac Medical History: Reports: Hx Hypertension Pulmonary Medical History: Reports: Hx Asthma Comment Only: Hx Pneumonia - Sarcoidosis lungs Neurological Medical History: Reports: Hx Migraine Renal/ Medical History: Reports: Hx Ovarian Cysts. Denies: Hx Peritoneal Dialysis GI Medical History: Reports: Hx Gastritis, Hx Hiatal Hernia, Hx Ulcer - H pylori , sarcoidosis, fibromyalgia Musculoskeltal Medical History: Reports Hx Arthritis - osteo, Reports Hx Fibromyalgia Psychiatric Medical History: Reports: Hx Depression - & anxiety Past Surgical History: Reports: Hx Gynecologic Surgery - polyps, ovarian cysts, Hx Orthopedic Surgery - ganglion cyst, Hx Tubal Ligation - Immunizations Immunizations up to date: Yes Hx Diphtheria, Pertussis, Tetanus Vaccination: Yes - January 2015 Hx Pneumococcal Vaccination: 08/28/16 Review of Systems - Review of Systems Constitutional: No symptoms reported Cardiovascular: No symptoms reported Respiratory: No symptoms reported Gastrointestinal: See HPI. denies: Nausea, Vomiting Genitourinary: See HPI Female Genitourinary: See HPI -: Yes All other systems reviewed and negative Physical Exam - Vital signs Vitals: Temp Pulse Resp BP Pulse Ox 99.1 F 84 18 125/88 H 100 01/29/17 08:02 01/29/17 08:02 01/29/17 08:02 01/29/17 08:02 01/29/17 08:02 - Notes Notes: PHYSICAL EXAM GENERAL: Alert, interacts well. NECK: Full range of motion. Supple. Trachea midline. LUNGS: Clear to auscultation bilaterally, no wheezes, rales, or rhonchi. No respiratory distress. HEART: Regular rate and rhythm. No murmurs, gallops, or rubs. ABDOMEN: Soft, nondistended, no superficial tenderness, tender to deep palpaion of left pelvic area, no abdominal tenderness. No guarding, rebound, or rigidity.. Bowel sounds present in all 4 quadrants. FEMALE : Normal external exam. No evidence of lesions, lacerations, bruising or vesicles. Speculum exam normal cervix closed. There is evidence of white vaginal discharge with odor. No evidence of lesions. No vaginal bleeding. Bimanual exam normal no cervical motion tenderness. No adnexal mass or adnexal tenderness. EXTREMITIES: Moves all 4 extremities spontaneously. No edema, radial and dorsalis pedis pulses 2/4 bilaterally. No cyanosis. NEUROLOGICAL: Alert and oriented x4. Normal speech. PSYCH: Normal affect, normal mood. SKIN: Warm, dry, normal turgor. No rashes or lesions noted. Site above pubis symhis of previous abscess, no eveidence of cellulitis or abscess now Course - Re-evaluation Re-evalutation: 01/29/17 12:17 Patient is a 36-year-old female who is hemodynamic stable, no acute distress and afebrile. There is no notable dermatologic concern on exam. Patient does have pelvic tenderness. No adnexal tenderness noted on physical exam. Sent for transvaginal ultrasound to evaluate for ovarian cysts. Wet mount shows positive for trichomonas and bacterial vaginosis. Urinalysis with possible contaminant. No evidence of abnormal uterine or ovarian pathology on ultrasound. Evidence of scar tissue noted in the abdomen at previous surgical site without any evidence of inflammation or fluid collection. Patient elected to be treated for Trichomonas, BV as well as chlamydia and gonorrhea. Results pending. Patient stable for discharge home with instruction to follow-up with CARD ASSEMBLER as needed - Vital Signs Vital signs: Temp Pulse Resp BP Pulse Ox 99.1 F 84 18 125/88 H 100 01/29/17 08:02 01/29/17 08:02 01/29/17 08:02 01/29/17 08:02 01/29/17 08:02 - Laboratory Laboratory results interpreted by me: 01/29/17 10:55 Urine Ketones 80 H Urine Urobilinogen 2.0 H Ur Leukocyte Esterase SMALL H Urine Ascorbic Acid 40 H - Diagnostic Test Radiology reviewed: Image reviewed, Reports reviewed Discharge - Discharge Clinical Impression: STD (female) Condition: Good Disposition: HOME, SELF-CARE Instructions: Trichomonas Infection ([facility]), Vaginosis, Bacterial ([facility]) Additional Instructions: Please be sure to take your medications as prescribed Follow-up with CARD ASSEMBLER as needed. Prescriptions: Ibuprofen [Motrin 800 mg Tablet] 800 mg PO Q8H PRN #30 tab PRN Reason: Metronidazole [Flagyl 500 mg Tablet] 500 mg PO BID 7 Days Referrals: HECTOR BRYANT MD [Primary Care Provider] - Follow up as needed TIESHA HERRERA MD [ACTIVE STAFF] - Follow up as needed
[2017-01-29 11:22] LABS: APPEARANCE,URINE CLOUDY; BILIRUBIN,URINE NEGATIVE (NEGATIVE); GLUCOSE, URINE NEGATIVE (NEGATIVE); KETONES,URINE 80 mg/dL (NEGATIVE); LEUKOCYTE ESTERASE,URINE SMALL (NEGATIVE); NITRITE,URINE NEGATIVE (NEGATIVE); PROTEIN,URINE NEGATIVE (NEGATIVE); URINE SPECIFIC GRAVITY 1.021
[2017-01-29 11:34] LABS: BACTERIA,URINE TRACE /HPF
--- NOTE | 2017-01-29 11:50 | RADIOLOGY REPORT (SQ) ---
EXAM DESCRIPTION: U/S NON OB PEL TV W/DOPPLER COMPLETED DATE/TIME: 01/29/2017 11:41 am REASON FOR STUDY: pelvic pain, left adenxa COMPARISON: 05/18/2012 TECHNIQUE: Dynamic and static grayscale images acquired of the pelvis via transvaginal and transabdo leticia approach and recorded on PACS. Additional selected color Doppler and spectral images recorded. LIMITATIONS: None. FINDINGS: UTERUS: Surgically absent RIGHT OVARY: Surgically absent LEFT OVARY: Ovary not visualized. FREE FLUID: None noted. OTHER: Subcutaneous area beneath the scar has typical appearance of scar. No vascular flow. MEASUREMENTS: UTERUS: Not applicable. ENDOMETRIAL STRIPE: Not applicable. RIGHT OVARY: Not applicable. LEFT OVARY: Not visualized. IMPRESSION: Status post hysterectomy and right oophorectomy. Left ovary not identified. Subcutaneous scar. TECHNICAL DOCUMENTATION: JOB ID: [id number] [employer]- All Rights Reserved
[2017-01-29] MEDS ORDERED: CEFTRIAXONE INJ 250 MG VIAL IM ONE (12:07)
[2017-01-29] MEDS ORDERED: LIDOCAINE 1% INJ-PF (10 MG/ML) 30 ML SDV INJ ONE (12:07)
[2017-01-29] MEDS ORDERED: METRONIDAZOLE 500 MG TABLET PO ONE (12:07)
[2017-01-29] MEDS ORDERED: AZITHROMYCIN 1 GM SUSP PACKET PO ONE (12:07)
[2017-01-29] MEDS ORDERED: METOCLOPRAMIDE HCL 10 MG TABLET PO ONE (12:08)
[2017-01-29 12:36] VITALS: BP 129/70
[2017-01-29 13:38] LABS: CHLAM PCR NOT DETECTED (NOT DETECT)
== END 2017-01-29 12:54 | disposition home or self-care (01) ==
LOC: ER 07:54
DX: A64 Unspecified sexually transmitted disease (principal); R10.30 Lower abdominal pain, unspecified; R10.2 Pelvic and perineal pain; Z79.899 Other long term (current) drug therapy; Z87.891 Personal history of nicotine dependence
CPT/HCPCS: 99284; 96372; 87210; 81025; 81001; 87491; 87591; 76830; 93976; J3490 ×3; Q0144; J0696

== ENCOUNTER 2017-02-06 09:45 | Emergency (ER) | payer MEDICAID ==
--- NOTE | 2017-02-06 10:28 | ER Document Report ---
ED GI/ - General Chief Complaint: Vaginal Discharge Stated Complaint: FOLLOW UP MEDICATION Time Seen by Provider: 02/06/17 10:01 TRAVEL OUTSIDE OF THE [place] IN LAST 30 DAYS: No - HPI Patient complains to provider of: Vaginal discharge - x1, light brown, two days ago, Other - treated for trich and BV on 01/29. symptoms have resolved since treated. No: Abdominal pain, Diarrhea, Flank pain, Hematuria, Pelvic pain, , Urinary retention, Vaginal bleeding, Vaginal pain, Vomiting Quality of pain: No pain Vaginal bleeding (Compared to normal period): None Sexual history: Active, STD exposure - treated on 01/29 for trich and BV. denies : Unprotected intercourse - Related Data Allergies/Adverse Reactions: meperidine HCl [From Demerol] Allergy (Severe, Verified 02/06/17 09:53) Anaphylaxis prednisone [Prednisone] Allergy (Severe, Verified 02/06/17 09:53) swell-up sulfamethoxazole [From Bactrim] Allergy (Verified 02/06/17 09:53) trimethoprim [From Bactrim] Allergy (Verified 02/06/17 09:53) morphine [Morphine] Adverse Reaction (Mild, Verified 02/06/17 09:53) Hives Past Medical History - Social History Smoking Status: Never Smoker Family History: Arthritis, DM, Hypertension, Malignancy Patient has suicidal ideation: No Patient has homicidal ideation: No - Past Medical History Cardiac Medical History: Reports: Hx Hypertension Pulmonary Medical History: Reports: Hx Asthma Comment Only: Hx Pneumonia - Sarcoidosis lungs Neurological Medical History: Reports: Hx Migraine Renal/ Medical History: Reports: Hx Ovarian Cysts. Denies: Hx Peritoneal Dialysis GI Medical History: Reports: Hx Gastritis, Hx Hiatal Hernia, Hx Ulcer - H pylori , sarcoidosis, fibromyalgia Musculoskeltal Medical History: Reports Hx Arthritis - osteo, Reports Hx Fibromyalgia Psychiatric Medical History: Reports: Hx Depression - & anxiety Past Surgical History: Reports: Hx Gynecologic Surgery - polyps, ovarian cysts, Hx Orthopedic Surgery - ganglion cyst, Hx Tubal Ligation - Immunizations Immunizations up to date: Yes Hx Diphtheria, Pertussis, Tetanus Vaccination: Yes - January 2015 Hx Pneumococcal Vaccination: 08/28/16 Review of Systems - Review of Systems Constitutional: No symptoms reported Female Genitourinary: See HPI -: Yes All other systems reviewed and negative Physical Exam - Vital signs Vitals: Temp Pulse Resp BP Pulse Ox 98.3 F 59 L 16 119/94 H 98 02/06/17 09:53 02/06/17 09:53 02/06/17 09:53 02/06/17 09:53 02/06/17 09:53 - Notes Notes: PHYSICAL EXAM GENERAL: Alert, interacts well. LUNGS: Clear to auscultation bilaterally, no wheezes, rales, or rhonchi. No respiratory distress. HEART: Regular rate and rhythm. No murmurs, gallops, or rubs. ABDOMEN: Soft, nondistended, nontender. No guarding, rebound, or rigidity.. Bowel sounds present in all 4 quadrants. FEMALE : Normal external exam. No evidence of lesions, lacerations, bruising or vesicles. Speculum exam normal cervix closed. No evidence of vaginal discharge with odor. No evidence of lesions. No vaginal bleeding. Bimanual exam normal no cervical motion tenderness. No adnexal mass or adnexal tenderness. EXTREMITIES: Moves all 4 extremities spontaneously. No edema, radial and dorsalis pedis pulses 2/4 bilaterally. No cyanosis. NEUROLOGICAL: Alert and oriented x4. Normal speech. PSYCH: Normal affect, normal mood. SKIN: Warm, dry, normal turgor. No rashes or lesions noted. Course - Re-evaluation Re-evalutation: 02/06/17 11:42 Patient is a 36-year-old female who was admitted stable, no acute distress afebrile. Presents today for recheck for bacterial vaginosis and trichomonas. Patient has been asymptomatic. Evidence of bacteria on wet mount without blood cells. No evidence of trichomonas or yeast. Patient clinically feels fine in comparison to her initial presenting symptoms on 29 January. At this time will not treat asymptomatic bacterial vaginosis since she recently completed antibiotic course. Patient to follow-up with primary care as needed. - Vital Signs Vital signs: Temp Pulse Resp BP Pulse Ox 98.8 F 56 L 17 134/89 H 100 02/06/17 11:06 02/06/17 11:06 02/06/17 11:06 02/06/17 11:06 02/06/17 11:06 - Laboratory Laboratory results interpreted by me: 02/06/17 10:22 Urine Blood SMALL H Discharge - Discharge Clinical Impression: Concern about STD in female without diagnosis Condition: Good Disposition: HOME, SELF-CARE Additional Instructions: Your lab evaluation came back negative today Your previous diagnoses have been treated. There is evidence of bacteria within your vagina but normal and you are symptom free Follow up with primary care as needed Referrals: HECTOR BRYANT MD [Primary Care Provider] - Follow up as needed
[2017-02-06 10:38] LABS: APPEARANCE,URINE SLIGHTLY-CLOUDY; BILIRUBIN,URINE NEGATIVE (NEGATIVE); GLUCOSE, URINE NEGATIVE (NEGATIVE); KETONES,URINE NEGATIVE (NEGATIVE); LEUKOCYTE ESTERASE,URINE NEGATIVE (NEGATIVE); NITRITE,URINE NEGATIVE (NEGATIVE); PROTEIN,URINE NEGATIVE (NEGATIVE); URINE SPECIFIC GRAVITY 1.004; UROBILINOGEN,URINE NEGATIVE mg/dL (<2.0)
[2017-02-06 11:10] VITALS: BP 134/89
== END 2017-02-06 11:11 | disposition home or self-care (01) ==
LOC: ER 09:45
DX: Z09 Encounter for follow-up examination after completed treatment for conditions other than malignant neoplasm (principal); Z86.19 Personal history of other infectious and parasitic diseases; I10 Essential (primary) hypertension; J45.909 Unspecified asthma, uncomplicated; Z88.5 Allergy status to narcotic agent; Z88.1 Allergy status to other antibiotic agents; Z88.8 Allergy status to other drugs, medicaments and biological substances
CPT/HCPCS: 81001; 87210; 99283

== ENCOUNTER → 2017-02-16 | Outpatient (CLI) | payer MEDICAID ==
[2017-02-16 17:12] LABS: ABSOLUTE EOSINOPHILS # (AUTO) 0.1 10^3/uL (0.0-0.6); ABSOLUTE LYMPHOCYTES (AUTO) 2.5 10^3/uL (0.5-4.7); ABSOLUTE MONOCYTES (AUTO) 0.2 10^3/uL (0.1-1.4); ABSOLUTE NEUT (AUTO) 6.1 10^3/uL (1.7-8.2); BASOPHILS % (AUTO) 0.3 % (0-2); EOSINOPHILS % (AUTO) 0.9 % (0-6); HEMATOCRIT 37.3 % (36.0-47.0); HEMOGLOBIN 12.5 g/dL (12.0-15.5); HGB HCT DIFFERENCE 0.2; LYMPHOCYTES % (AUTO) 28.2 % (13-45); MEAN CORPUSCULAR HGB CONC 33.5 g/dL (32.0-36.0); MEAN CORPUSCULAR VOLUME 81 fl (80-97); MONOCYTES % (AUTO) 2.5 % (3-13); RED BLOOD COUNT 4.63 10^6/uL (3.72-5.28); RED CELL DISTRIBUTION WIDTH 15.8 % (11.5-14.0); SEGMENTED NEUTROPHILS % (AUTO) 68.1 % (42-78)
== END ==
LOC: OD 16:20
PROVIDERS: ATTEND Internal Medicine Pulmonary Disease
DX: R06.02 Shortness of breath (principal)
CPT/HCPCS: 36415; 82164; 85025

== ENCOUNTER → 2017-02-16 | Outpatient (CLI) | payer MEDICAID ==
--- NOTE | 2017-02-16 17:11 | RADIOLOGY REPORT (SQ) ---
EXAM DESCRIPTION: CHEST PA/LATERAL COMPLETED DATE/TIME: 02/16/2017 4:57 pm REASON FOR STUDY: SHORTNESS OF BREATH COMPARISON: 06/03/2016 EXAM PARAMETERS: NUMBER OF VIEWS: two views TECHNIQUE: Digital Frontal and Lateral radiographic views of the chest acquired. RADIATION DOSE: NA LIMITATIONS: none FINDINGS: LUNGS AND PLEURA: No opacities, masses or pneumothorax. No pleural effusion. MEDIASTINUM AND HILAR STRUCTURES: No masses or contour abnormalities. HEART AND VASCULAR STRUCTURES: Heart normal size. No evidence for failure. BONES: No acute findings. HARDWARE: None in the chest. OTHER: No other significant finding. IMPRESSION: NO SIGNIFICANT RADIOGRAPHIC FINDING IN THE CHEST. TECHNICAL DOCUMENTATION: JOB ID: [id number] [employer]- All Rights Reserved
== END ==
LOC: OD 16:41
PROVIDERS: ATTEND Internal Medicine Pulmonary Disease
DX: R06.02 Shortness of breath (principal)
CPT/HCPCS: 71020

== ENCOUNTER 2017-03-01 07:15 | Emergency (ER) | payer MEDICAID ==
[2017-03-01] MEDS ORDERED: KETOROLAC TROMETHAMINE INJ/PF 30 MG/1 ML SDV IV ONE (07:56)
[2017-03-01] MEDS ORDERED: NORMAL SALINE 1000 ML 1,000 ML IV ONE (07:56)
[2017-03-01] MEDS ORDERED: PROCHLORPERAZINE EDISYLATE INJ 10 MG/2 ML VIAL IV ONE (07:56)
--- NOTE | 2017-03-01 08:05 | ER Document Report ---
ED Headache - General Chief Complaint: Headache >24 hrs old Stated Complaint: HEADACHE Time Seen by Provider: 03/01/17 07:54 Mode of Arrival: Ambulatory Information source: Patient Notes: Patient is a 36-year-old female with a history of headaches, migraines who presents to the ER today for migraine 1 week. Patient has tried Topamax and naproxen at home which have not helped her headache. She denies any light sensitivity, blurred vision, nausea, vomiting, sound sensitivity, fever, back pain or other symptoms. TRAVEL OUTSIDE OF THE [place] IN LAST 30 DAYS: No - Related Data Allergies/Adverse Reactions: meperidine HCl [From Demerol] Allergy (Severe, Verified 03/01/17 07:30) Anaphylaxis prednisone [Prednisone] Allergy (Severe, Verified 03/01/17 07:30) swell-up sulfamethoxazole [From Bactrim] Allergy (Verified 03/01/17 07:30) trimethoprim [From Bactrim] Allergy (Verified 03/01/17 07:30) morphine [Morphine] Adverse Reaction (Mild, Verified 03/01/17 07:30) Hives Past Medical History - General Information source: Patient - Social History Smoking Status: Current Every Day Smoker Family History: Arthritis, DM, Hypertension, Malignancy Patient has suicidal ideation: No Patient has homicidal ideation: No - Past Medical History Cardiac Medical History: Reports: Hx Hypertension Pulmonary Medical History: Reports: Hx Asthma Comment Only: Hx Pneumonia - Sarcoidosis lungs Neurological Medical History: Reports: Hx Migraine Renal/ Medical History: Reports: Hx Ovarian Cysts, Hx Peritoneal Dialysis GI Medical History: Reports: Hx Gastritis, Hx Hiatal Hernia, Hx Ulcer - H pylori , sarcoidosis, fibromyalgia Musculoskeltal Medical History: Reports Hx Arthritis - osteo, Reports Hx Fibromyalgia Psychiatric Medical History: Reports: Hx Depression - & anxiety Past Surgical History: Reports: Hx Gynecologic Surgery - polyps, ovarian cysts, Hx Orthopedic Surgery - ganglion cyst, Hx Tubal Ligation - Immunizations Immunizations up to date: Yes Hx Diphtheria, Pertussis, Tetanus Vaccination: Yes - January 2015 Hx Pneumococcal Vaccination: 08/28/16 Review of Systems - Review of Systems Constitutional: No symptoms reported EENT: No symptoms reported Cardiovascular: No symptoms reported Respiratory: No symptoms reported Gastrointestinal: No symptoms reported Genitourinary: No symptoms reported Female Genitourinary: No symptoms reported Musculoskeletal: No symptoms reported Skin: No symptoms reported Hematologic/Lymphatic: No symptoms reported Neurological/Psychological: See HPI Physical Exam - Vital signs Vitals: Temp Pulse Resp BP Pulse Ox 98.4 F 56 L 16 132/76 H 98 03/01/17 07:21 03/01/17 07:21 03/01/17 07:21 03/01/17 07:21 03/01/17 07:21 - Notes Notes: PHYSICAL EXAMINATION: GENERAL: Well-appearing and in no acute distress. HEAD: Atraumatic, normocephalic. EYES: Pupils equal round and reactive to light, extraocular movements intact, sclera anicteric, conjunctiva are normal. ENT: ear canals without erythema or foreign body, TMs pearly xiao with good bony landmarks, nares patent, oropharynx clear without exudates. Moist mucous membranes. NECK: Normal range of motion, supple without lymphadenopathy LUNGS: CTAB and equal. No wheezes rales or rhonchi. HEART: Regular rate and rhythm without murmurs ABDOMEN: Soft, no tenderness. No guarding, no rebound BACK: no vertebral tenderness, normal ROM GI/: no CVA tenderness EXTREMITIES: Normal range of motion, no pitting edema. No cyanosis. NEUROLOGICAL: Cranial nerves grossly intact. Normal sensory/motor exams. PSYCH: Normal mood, normal affect. SKIN: Warm, Dry, normal turgor, no rashes or lesions noted Course - Re-evaluation Re-evalutation: 03/01/17 09:50 Patient states her headache is gone after IV Compazine, Toradol and IV fluids. - Vital Signs Vital signs: Temp Pulse Resp BP Pulse Ox 98.4 F 56 L 16 132/76 H 98 03/01/17 07:21 03/01/17 07:21 03/01/17 07:21 03/01/17 07:21 03/01/17 07:21 Discharge - Discharge Clinical Impression: Migraine Qualifiers: Migraine type: other Status migrainosus presence: without status migrainosus Intractability: not intractable Qualified Code(s): G43.809 - Other migraine, not intractable, without status migrainosus Condition: Stable Disposition: HOME, SELF-CARE Additional Instructions: Return immediately for any new or worsening symptoms. Follow up with primary care provider, call tomorrow to make followup appointment. Forms: Return to Work
[2017-03-01 10:40] VITALS: BP 123/78
== END 2017-03-01 10:35 | disposition home or self-care (01) ==
LOC: ER 07:15
DX: G43.809 Other migraine, not intractable, without status migrainosus (principal); R51 Headache; Z79.899 Other long term (current) drug therapy; F17.200 Nicotine dependence, unspecified, uncomplicated
CPT/HCPCS: 99284; 96361; 96374; 96375; J1885; J0780; J7030

== ENCOUNTER 2017-03-19 06:57 | Emergency (ER) | payer MEDICAID ==
[2017-03-19] MEDS ORDERED: OXYCODONE-ACETAMINOPHEN 5-325 MG TABLET PO ONE (08:11)
[2017-03-19] MEDS ORDERED: CEPHALEXIN 500 MG CAPSULE PO ONE (08:11)
[2017-03-19] MEDS ORDERED: CLINDAMYCIN HCL 150 MG CAPSULE PO ONE (08:11)
--- NOTE | 2017-03-19 08:23 | ER Document Report ---
HPI - HPI Patient complains to provider of: vaginal pain Onset: Other - wed Quality of pain: Other - SORE Severity: Severe Pain Level: 4 Context: Patient presents to emergency department with complaints of abscess in her sacral area. Patient reports on Tuesday she felt her vaginal area very tender. This morning she woke up and believes she has an abscess. She reports she has had an abscess in this area years ago. She quit shaving herself after she had an abscess. Denies history of MRSA. She reports she has had other abscesses, none recently. Denies fever vomiting diarrhea. Associated Symptoms: None Exacerbated by: Sitting Relieved by: Denies Similar symptoms previously: No Recently seen / treated by doctor: No - REPRODUCTIVE LMP: 03-04-17 Reproductive: DENIES: : - DERM Skin Color: Normal Past Medical History - General Information source: Patient Last Menstrual Period: 03/04/17 - Social History Smoking Status: Former Smoker Cigarette use (# per day): No Chew tobacco use (# tins/day): No Frequency of alcohol use: None Drug Abuse: None Family History: Arthritis, DM, Hypertension, Malignancy Patient has suicidal ideation: No Patient has homicidal ideation: No - Past Medical History Cardiac Medical History: Reports: Hx Hypertension Pulmonary Medical History: Reports: Hx Asthma Comment Only: Hx Pneumonia - Sarcoidosis lungs Neurological Medical History: Reports: Hx Migraine Renal/ Medical History: Reports: Hx Ovarian Cysts. Denies: Hx Peritoneal Dialysis GI Medical History: Reports: Hx Gastritis, Hx Hiatal Hernia, Hx Ulcer - H pylori , sarcoidosis, fibromyalgia Musculoskeltal Medical History: Reports Hx Arthritis - osteo, Reports Hx Fibromyalgia Skin Medical History: Denies Hx MRSA Psychiatric Medical History: Reports: Hx Depression - & anxiety Past Surgical History: Reports: Hx Gynecologic Surgery - polyps, ovarian cysts, Hx Orthopedic Surgery - ganglion cyst, Hx Tubal Ligation - Immunizations Immunizations up to date: Yes Hx Diphtheria, Pertussis, Tetanus Vaccination: Yes - January 2015 Hx Pneumococcal Vaccination: 08/28/16 Vertical Provider Document - CONSTITUTIONAL Agree With Documented VS: Yes Exam Limitations: No Limitations General Appearance: WD/WN, No Apparent Distress - INFECTION CONTROL TRAVEL OUTSIDE OF THE [place] IN LAST 30 DAYS: No - HEENT HEENT: Atraumatic, Normocephalic - NECK Neck: Supple - RESPIRATORY Respiratory: Breath Sounds Normal, No Respiratory Distress O2 Sat by Pulse Oximetry: 98 - CARDIOVASCULAR Cardiovascular: Regular Rate - REPRODUCTIVE Notes: tender flat firm area ~ 1cm around to left perineum, right below left labia majoria, no induration, not flunctuant, no erythema - MUSCULOSKELETAL/EXTREMETIES Musculoskeletal/Extremeties: SARIAH LOVE - NEURO Level of Consciousness: Awake, Alert, Appropriate Motor/Sensory: No Motor Deficit - DERM Integumentary: Warm, Dry Course - Re-evaluation Re-evalutation: 03/19/17 left side below labia majora ttp, ~1 cm round area ttp, flat, no fluctuance, no induration, no erythema. Instructed on medications for pain antibiotics and warm compresses importance of monitoring the site follow-up with a surgeon or her [employer] for possible I&D. Site is not ready for I&D at this time. Pt instructed to return to the ED for swelling, increased pain - Vital Signs Vital signs: Temp Pulse Resp BP Pulse Ox 98.7 F 78 18 133/88 H 98 03/19/17 07:01 03/19/17 07:01 03/19/17 07:01 03/19/17 07:01 03/19/17 07:01 Discharge - Discharge Clinical Impression: Abscess, vagina, Elevated blood pressure reading Condition: Stable Disposition: HOME, SELF-CARE Instructions: Abscess ([facility]), Cephalexin ([facility]), Oral Narcotic Medication ([facility]), [employer]-Swimming [employer] Install[employer] Doctors, Surgeon, Clindamycin ([facility]) Additional Instructions: *You have been treated for the beginning of a abscess *Take medication as prescribed *Monitor the site for signs of increasing infection such as increasing pain, redness, swelling, warmth *warm compresses *Follow up with Dr Bryant for recheck within 3 days *Return to ED for signs of increasing infection, worsening condition, changes, needs Monitor your blood pressure. Your blood pressure was elevated today. This may be because you were anxious, in pain or because you need medication. It is important to follow up with your primary care provider for full evaluation. Prescriptions: Cephalexin Monohydrate [Keflex 500 mg Capsule] 500 mg PO QID #20 capsule Clindamycin HCl [Cleocin 300 mg Capsule] 300 mg PO BID #14 capsule Oxycodone HCl/Acetaminophen [Percocet 5-325 mg Tablet] 1 - 2 tab PO ASDIR PRN # 15 tablet PRN Reason: Forms: Elevated Blood Pressure Referrals: HECTOR BRYANT MD [Primary Care Provider] - Follow up in 3-5 days
[2017-03-19 08:36] VITALS: BP 135/86
== END 2017-03-19 08:38 | disposition home or self-care (01) ==
LOC: ER 06:57
DX: N76.0 Acute vaginitis (principal); I10 Essential (primary) hypertension; R10.2 Pelvic and perineal pain; Z98.51 Tubal ligation status
CPT/HCPCS: 99282; J3490

== ENCOUNTER 2017-05-01 09:49 | Emergency (ER) | payer MEDICAID ==
--- NOTE | 2017-05-01 10:17 | ER Document Report ---
ED Extremity Problem, Lower - General Chief Complaint: Ankle Pain Stated Complaint: RIGHT FOOT PAIN Time Seen by Provider: 05/01/17 10:06 Notes: 36 yo female c/o pain to right ankle x 2 days. does not recall any trauma. pain has progressively worsened. painful to walk. no previous injury. no hx/ o gout TRAVEL OUTSIDE OF THE [place] IN LAST 30 DAYS: No - HPI Patient complains to provider of: Pain, Swelling Location: Ankle - right Onset/Duration: Sudden, Persistent, Worse Quality of pain: Sharp Pain Level: 4 Recent injury: No Associated symptoms: denies: Chest pain, [place] a crack, Hurts to breath Exacerbated by: Movement, Walking - Related Data Allergies/Adverse Reactions: meperidine HCl [From Demerol] Allergy (Severe, Verified 05/01/17 09:53) Anaphylaxis prednisone [Prednisone] Allergy (Severe, Verified 05/01/17 09:53) swell-up sulfamethoxazole [From Bactrim] Allergy (Verified 05/01/17 09:53) trimethoprim [From Bactrim] Allergy (Verified 05/01/17 09:53) morphine [Morphine] Adverse Reaction (Mild, Verified 05/01/17 09:53) Hives Past Medical History - General Information source: Patient - Social History Smoking Status: Current Every Day Smoker Frequency of alcohol use: None Drug Abuse: None Lives with: Family Family History: Arthritis, DM, Hypertension, Malignancy - Past Medical History Cardiac Medical History: Reports: Hx Hypertension Pulmonary Medical History: Reports: Hx Asthma Comment Only: Hx Pneumonia - Sarcoidosis lungs Neurological Medical History: Reports: Hx Migraine Endocrine Medical History: Renal/ Medical History: Reports: Hx Ovarian Cysts. Denies: Hx Peritoneal Dialysis GI Medical History: Reports: Hx Gastritis, Hx Hiatal Hernia, Hx Ulcer - H pylori , sarcoidosis, fibromyalgia Musculoskeltal Medical History: Reports Hx Arthritis - osteo, Reports Hx Fibromyalgia Skin Medical History: Denies Hx MRSA Psychiatric Medical History: Reports: Hx Depression - & anxiety Past Surgical History: Reports: Hx Gynecologic Surgery - polyps, ovarian cysts, Hx Orthopedic Surgery - ganglion cyst, Hx Tubal Ligation - Immunizations Immunizations up to date: Yes Hx Diphtheria, Pertussis, Tetanus Vaccination: Yes - January 2015 Hx Pneumococcal Vaccination: 08/28/16 Review of Systems - Review of Systems Constitutional: No symptoms reported EENT: No symptoms reported Cardiovascular: No symptoms reported Respiratory: No symptoms reported Gastrointestinal: No symptoms reported Genitourinary: No symptoms reported Female Genitourinary: No symptoms reported Musculoskeletal: See HPI Skin: No symptoms reported Hematologic/Lymphatic: No symptoms reported Neurological/Psychological: No symptoms reported Physical Exam - Vital signs Vitals: Temp Pulse Resp BP Pulse Ox 98.5 F 76 18 139/84 H 100 05/01/17 09:54 05/01/17 09:54 05/01/17 09:54 05/01/17 09:54 05/01/17 09:54 Interpretation: Normal - General General appearance: Appears well, Alert - HEENT Head: Normocephalic, Atraumatic Eyes: Normal Pupils: PERRL - Respiratory Respiratory status: No respiratory distress Chest status: Nontender Breath sounds: Normal Chest palpation: Normal - Cardiovascular Rhythm: Regular Heart sounds: Normal auscultation Murmur: No - Abdominal Inspection: Normal Distension: No distension Bowel sounds: Normal Tenderness: Nontender Organomegaly: No organomegaly - Back Back: Normal, Nontender - Extremities General upper extremity: Normal inspection, Nontender, Normal color, Normal ROM , Normal temperature Ankle: Tender - right ankle with tenderness to lateral and medial malleolus and talus areas. mild soft tissue swelling. distal SMC intact - Neurological Neuro grossly intact: Yes Cognition: Normal Orientation: AAOx4 Craig Coma Scale Eye Opening: Spontaneous Craig Coma Scale Verbal: Oriented Craig Coma Scale Motor: Obeys Commands Clarisa Coma Scale Total: 15 Speech: Normal Motor strength normal: LUE, RUE, LLE, RLE Sensory: Normal - Psychological Associated symptoms: Normal affect, Normal mood - Skin Skin Temperature: Warm Skin Moisture: Dry Skin Color: Normal Course - Re-evaluation Re-evalutation: 05/01/17 11:31 xray and rad results reviewed. negative for fracture. uric acid normal. no circulatory compromise. H&P c/w plantar fasciitis. discussed diagnosis with patient. demonstrated streteches for foot and ice massage. will treat with anti inflammatory medication and have pt f/u podiatry/ortho if pain persists. pt agreeable with plan. - Vital Signs Vital signs: Temp Pulse Resp BP Pulse Ox 98.5 F 76 18 139/84 H 100 05/01/17 09:54 05/01/17 09:54 05/01/17 09:54 05/01/17 09:54 05/01/17 09:54 Discharge - Discharge Clinical Impression: Right foot pain, Plantar fasciitis of right foot Condition: Stable Disposition: HOME, SELF-CARE Instructions: Plantar Fasciitis or Heel Spur ([facility]), Ibuprofen (General) ([facility]), Ice Massage ([facility]) Additional Instructions: Your xray and labs were normal today your physical exam is consistent with plantar fasciitis which is an inflammatory condition Take Ibuprofen as prescribed do foot stretches as demonstrated and ice massage as discussed follow up with primary care/podiatry if pain persists Prescriptions: Ibuprofen [Motrin 800 Mg Tablet] 800 mg PO Q6H #20 tablet Forms: Return to School
--- NOTE | 2017-05-01 11:20 | RADIOLOGY REPORT (SQ) ---
EXAM DESCRIPTION: ANKLE RIGHT COMPLETE COMPLETED DATE/TIME: 05/01/2017 11:01 am REASON FOR STUDY: pain with movement COMPARISON: None. NUMBER OF VIEWS: Three views. TECHNIQUE: AP, lateral, and oblique radiographic images acquired of the right ankle. LIMITATIONS: None. FINDINGS: MINERALIZATION: Normal. BONES: No acute fracture or dislocation. No worrisome bone lesions. JOINTS: No effusions. SOFT TISSUES: No soft tissue swelling. No foreign body. OTHER: No other significant finding. IMPRESSION: NEGATIVE STUDY OF THE RIGHT ANKLE. NO RADIOGRAPHIC EVIDENCE OF ACUTE INJURY. TECHNICAL DOCUMENTATION: JOB ID: [id number] [employer]- All Rights Reserved
[2017-05-01] MEDS ORDERED: HYDROCODONE/ACETAMINOPHEN 5-325 MG TABLET PO ONE (11:35)
[2017-05-01] MEDS ORDERED: IBUPROFEN 800 MG TABLET PO ONE (11:36)
[2017-05-01 11:45] VITALS: BP 122/76
== END 2017-05-01 11:46 | disposition home or self-care (01) ==
LOC: ER 09:49
DX: M79.671 Pain in right foot (principal); M72.2 Plantar fascial fibromatosis; F17.200 Nicotine dependence, unspecified, uncomplicated; I10 Essential (primary) hypertension; J45.909 Unspecified asthma, uncomplicated; Z98.51 Tubal ligation status; Z88.3 Allergy status to other anti-infective agents
CPT/HCPCS: 99283; 36415; 84550; 73610; J3490

== ENCOUNTER 2017-05-02 10:45 | Emergency (ER) | payer MEDICAID ==
--- NOTE | 2017-05-02 12:11 | ER Document Report ---
HPI - HPI Patient complains to provider of: Eyelid issue Onset: Other - four days Onset/Duration: Persistent Quality of pain: Achy Pain Level: 4 Context: Patient states that she had eyelashes applied 4 days ago with glue in a salon. Patient states that her skin became very irritated and she removed the eyelashes. Patient states that she had eyelid swelling and inflammation that has gradually started to get better although she has had drainage from both eyes for the past 2 days. Patient states that she has not had any visual complaints. Patient does wear contact lenses and changes them about once every 2 weeks. Patient states that she is not currently wearing her left contact lens. Associated Symptoms: Other - Bilateral eyelid inflammation Exacerbated by: Denies Relieved by: Denies Similar symptoms previously: No Recently seen / treated by doctor: Yes - ROS ROS below otherwise negative: Yes Systems Reviewed and Negative: Yes All other systems reviewed and negative - CONSTITUTIONAL Constitutional: DENIES: Fever - EENT EENT: REPORTS: Eye problems - REPRODUCTIVE Reproductive: DENIES: : - DERM Skin Color: Normal Past Medical History - General Information source: Patient - Social History Smoking Status: Never Smoker Frequency of alcohol use: None Drug Abuse: None Lives with: Family Family History: Arthritis, DM, Hypertension, Malignancy - Past Medical History Cardiac Medical History: Reports: Hx Hypertension Pulmonary Medical History: Reports: Hx Asthma Comment Only: Hx Pneumonia - Sarcoidosis lungs Neurological Medical History: Reports: Hx Migraine Endocrine Medical History: Renal/ Medical History: Reports: Hx Ovarian Cysts. Denies: Hx Peritoneal Dialysis GI Medical History: Reports: Hx Gastritis, Hx Hiatal Hernia, Hx Ulcer - H pylori , sarcoidosis, fibromyalgia Musculoskeltal Medical History: Reports Hx Arthritis - osteo, Reports Hx Fibromyalgia Skin Medical History: Denies Hx MRSA Psychiatric Medical History: Reports: Hx Depression - & anxiety Past Surgical History: Reports: Hx Gynecologic Surgery - polyps, ovarian cysts, Hx Orthopedic Surgery - ganglion cyst, Hx Tubal Ligation - Immunizations Immunizations up to date: Yes Hx Diphtheria, Pertussis, Tetanus Vaccination: Yes - January 2015 Hx Pneumococcal Vaccination: 08/28/16 Vertical Provider Document - CONSTITUTIONAL Agree With Documented VS: Yes Exam Limitations: No Limitations General Appearance: WD/WN, No Apparent Distress - INFECTION CONTROL TRAVEL OUTSIDE OF THE [place] IN LAST 30 DAYS: No - HEENT HEENT: Atraumatic, Normocephalic Notes: Mild swelling to the eyelid margins of both eyes, minimal erythema, no concern for orbital preseptal cellulitis. Sclera clear bilaterally, no noted purulent drainage, extraocular movements intact, Perll. No fluorescein uptake, no corneal abrasion, ulcer, or dendrite - NECK Neck: Normal Inspection - RESPIRATORY Respiratory: No Respiratory Distress O2 Sat by Pulse Oximetry: 99 - MUSCULOSKELETAL/EXTREMETIES Musculoskeletal/Extremeties: MAEW - NEURO Level of Consciousness: Awake, Alert, Appropriate - DERM Integumentary: Warm, Dry, No Rash Course - Vital Signs Vital signs: Temp Pulse Resp BP Pulse Ox 98.9 F 73 18 145/101 H 99 05/02/17 10:48 05/02/17 10:48 05/02/17 10:48 05/02/17 10:48 05/02/17 10:48 Discharge - Discharge Clinical Impression: Hx of essential hypertension Dermatitis, eyelid Qualifiers: Laterality: bilateral Qualified Code(s): H01.9 - Unspecified inflammation of eyelid Conjunctivitis Qualifiers: Conjunctivitis type: unspecified Laterality: bilateral Qualified Code(s): H10.9 - Unspecified conjunctivitis Condition: Stable Disposition: HOME, SELF-CARE Instructions: Antibiotic Therapy ([facility]), Conjunctivitis ([facility]) Additional Instructions: Return immediately for any new or worsening symptoms Followup with your opthamologist, call tomorrow to make a followup appointment Prescriptions: Erythromycin Base [Erythromycin] 1 inch OP QID #3.5 oint..gm. Forms: Elevated Blood Pressure Referrals: HECTOR BRYANT MD [Primary Care Provider] - Follow up as needed
[2017-05-02 13:34] VITALS: BP 140/85
== END 2017-05-02 13:34 | disposition home or self-care (01) ==
LOC: ER 10:45
DX: H01.9 Unspecified inflammation of eyelid (principal); H10.9 Unspecified conjunctivitis; I10 Essential (primary) hypertension; R22.0 Localized swelling, mass and lump, head
CPT/HCPCS: 99283

== ENCOUNTER → 2017-05-20 | Outpatient (CLI) | payer MEDICAID ==
[2017-05-20 12:27] LABS: ABSOLUTE BASOPHILS # (AUTO) 0.1 10^3/uL (0.0-0.2); ABSOLUTE LYMPHOCYTES (AUTO) 2.5 10^3/uL (0.5-4.7); ABSOLUTE MONOCYTES (AUTO) 0.2 10^3/uL (0.1-1.4); ABSOLUTE NEUT (AUTO) 3.7 10^3/uL (1.7-8.2); BASOPHILS % (AUTO) 0.9 % (0-2); EOSINOPHILS % (AUTO) 0.4 % (0-6); HEMATOCRIT 36.1 % (36.0-47.0); HEMOGLOBIN 12.7 g/dL (12.0-15.5); LYMPHOCYTES % (AUTO) 39.1 % (13-45); MEAN CORPUSCULAR HEMOGLOBIN 27.5 pg (27.0-33.4); MEAN CORPUSCULAR HGB CONC 35.3 g/dL (32.0-36.0); MEAN CORPUSCULAR VOLUME 78 fl (80-97); MONOCYTES % (AUTO) 2.9 % (3-13); RED BLOOD COUNT 4.62 10^6/uL (3.72-5.28); RED CELL DISTRIBUTION WIDTH 15.4 % (11.5-14.0); SEGMENTED NEUTROPHILS % (AUTO) 56.7 % (42-78); WHITE BLOOD COUNT 6.5 10^3/uL (4.0-10.5)
[2017-05-20 12:48] LABS: ALANINE AMINOTRANSFERASE 30 U/L (9-52); ALBUMIN 4.3 g/dL (3.5-5.0); ALKALINE PHOSPHATASE 59 U/L (38-126); ANION GAP 13 (5-19); ASPARTATE AMINO TRANSFERASE 21 U/L (14-36); BILIRUBIN,DIRECT 0.3 mg/dL (0.0-0.4); BILIRUBIN,TOTAL 0.5 mg/dL (0.2-1.3); BLOOD UREA NITROGEN 5 mg/dL (7-20); CALCIUM 9.8 mg/dL (8.4-10.2); CARBON DIOXIDE 23 mmol/L (22-30); CHLORIDE 107 mmol/L (98-107); CREATININE RESULT 0.62 mg/dL (0.52-1.25); GLUCOSE 82 mg/dL (75-110); POTASSIUM 4.1 mmol/L (3.6-5.0); TOTAL PROTEIN 7.4 g/dL (6.3-8.2)
[2017-05-20 13:21] LABS: ERYTHROCYTE SEDIMENTATION RATE 19 mm/hr (0-20)
[2017-05-21 13:38] LABS: JO-1 ANTIBODY (ANACOMP) <0.2 AI (0.0-0.9)
[2017-05-24 16:39] LABS: CYTOPLASMIC (C-ANCA) <1:20 titer (Neg:<1:20)
== END ==
LOC: OD 10:55
PROVIDERS: ATTEND Internal Medicine Pulmonary Disease
DX: D86.0 Sarcoidosis of lung (principal); R10.11 Right upper quadrant pain
CPT/HCPCS: 36415; 80053; 85025; 85652; 86021; 86225; 86235; 86430

== ENCOUNTER 2017-05-21 02:24 | Emergency (ER) | payer MEDICAID ==
[2017-05-21 03:59] LABS: ABSOLUTE EOSINOPHILS # (AUTO) 0.1 10^3/uL (0.0-0.6); ABSOLUTE LYMPHOCYTES (AUTO) 2.6 10^3/uL (0.5-4.7); ABSOLUTE MONOCYTES (AUTO) 0.4 10^3/uL (0.1-1.4); ABSOLUTE NEUT (AUTO) 3.4 10^3/uL (1.7-8.2); BASOPHILS % (AUTO) 0.6 % (0-2); EOSINOPHILS % (AUTO) 1.2 % (0-6); HEMOGLOBIN 11.9 g/dL (12.0-15.5); HGB HCT DIFFERENCE 1.7; LYMPHOCYTES % (AUTO) 40.3 % (13-45); MEAN CORPUSCULAR HEMOGLOBIN 27.5 pg (27.0-33.4); MEAN CORPUSCULAR HGB CONC 35.1 g/dL (32.0-36.0); MEAN CORPUSCULAR VOLUME 79 fl (80-97); MONOCYTES % (AUTO) 5.5 % (3-13); RED BLOOD COUNT 4.32 10^6/uL (3.72-5.28); RED CELL DISTRIBUTION WIDTH 15.1 % (11.5-14.0); SEGMENTED NEUTROPHILS % (AUTO) 52.4 % (42-78); WHITE BLOOD COUNT 6.4 10^3/uL (4.0-10.5)
[2017-05-21 04:01] LABS: ALANINE AMINOTRANSFERASE 30 U/L (9-52); ALBUMIN 3.8 g/dL (3.5-5.0); ALKALINE PHOSPHATASE 55 U/L (38-126); ANION GAP 12 (5-19); ASPARTATE AMINO TRANSFERASE 18 U/L (14-36); BILIRUBIN,DIRECT 0.3 mg/dL (0.0-0.4); BILIRUBIN,TOTAL 0.4 mg/dL (0.2-1.3); BLOOD UREA NITROGEN 6 mg/dL (7-20); CALCIUM 9.4 mg/dL (8.4-10.2); CARBON DIOXIDE 21 mmol/L (22-30); CHLORIDE 110 mmol/L (98-107); CREATININE RESULT 0.63 mg/dL (0.52-1.25); GLUCOSE 98 mg/dL (75-110); LIPASE 110.1 U/L (23-300); SODIUM 143.1 mmol/L (137-145); TOTAL PROTEIN 6.7 g/dL (6.3-8.2)
[2017-05-21 04:18] LABS: APPEARANCE,URINE SLIGHTLY-CLOUDY; BILIRUBIN,URINE NEGATIVE (NEGATIVE); GLUCOSE, URINE NEGATIVE (NEGATIVE); KETONES,URINE NEGATIVE (NEGATIVE); LEUKOCYTE ESTERASE,URINE NEGATIVE (NEGATIVE); NITRITE,URINE NEGATIVE (NEGATIVE); PROTEIN,URINE NEGATIVE (NEGATIVE); URINE SPECIFIC GRAVITY 1.021
--- NOTE | 2017-05-21 04:26 | ER Document Report ---
ED General - General Chief Complaint: Abdominal Pain Stated Complaint: ABDOMINAL PAIN Time Seen by Provider: 05/21/17 03:46 Notes: patient is a 37-year-old female who presents emergency department complaining of right upper quadrant pain with nausea and diarrhea since March. Patient states that she is due to follow-up with Dr. Harris. States that the pain is not any worse than it has been over the past couple months. She does have a history of surgeons, fibromyalgia, sarcoidosis. Has been able to tolerate solids or liquids. Denies any vomiting. Denies any blood in her stool. Denies any recent antibiotic treatments or recent travel or surgery. PCP hieu TRAVEL OUTSIDE OF THE [place] IN LAST 30 DAYS: No - Related Data Allergies/Adverse Reactions: meperidine HCl [From Demerol] Allergy (Severe, Verified 05/21/17 02:26) Anaphylaxis prednisone [Prednisone] Allergy (Severe, Verified 05/21/17 02:26) swell-up sulfamethoxazole [From Bactrim] Allergy (Verified 05/21/17 02:26) trimethoprim [From Bactrim] Allergy (Verified 05/21/17 02:26) morphine [Morphine] Adverse Reaction (Mild, Verified 05/21/17 02:26) Hives Past Medical History - Social History Smoking Status: Never Smoker Family History: Arthritis, DM, Hypertension, Malignancy Patient has suicidal ideation: No Patient has homicidal ideation: No - Past Medical History Cardiac Medical History: Reports: Hx Hypertension Pulmonary Medical History: Reports: Hx Asthma Comment Only: Hx Pneumonia - Sarcoidosis lungs Neurological Medical History: Reports: Hx Migraine Endocrine Medical History: Renal/ Medical History: Reports: Hx Ovarian Cysts. Denies: Hx Peritoneal Dialysis GI Medical History: Reports: Hx Gastritis, Hx Hiatal Hernia, Hx Ulcer - H pylori , sarcoidosis, fibromyalgia Musculoskeltal Medical History: Reports Hx Arthritis - osteo, Reports Hx Fibromyalgia Skin Medical History: Denies Hx MRSA Psychiatric Medical History: Reports: Hx Depression - & anxiety Past Surgical History: Reports: Hx Gynecologic Surgery - polyps, ovarian cysts, Hx Orthopedic Surgery - ganglion cyst, Hx Tubal Ligation - Immunizations Immunizations up to date: Yes Hx Diphtheria, Pertussis, Tetanus Vaccination: Yes - January 2015 Hx Pneumococcal Vaccination: 08/28/16 Review of Systems - Review of Systems Constitutional: No symptoms reported Cardiovascular: No symptoms reported Respiratory: No symptoms reported Gastrointestinal: See HPI -: Yes All other systems reviewed and negative Physical Exam - Vital signs Vitals: Temp Pulse Resp BP Pulse Ox 98.8 F 70 18 144/91 H 99 05/21/17 02:26 05/21/17 02:26 05/21/17 02:26 05/21/17 02:26 05/21/17 02:26 - Notes Notes: PHYSICAL EXAM GENERAL: Alert, interacts well. LUNGS: Clear to auscultation bilaterally, no wheezes, rales, or rhonchi. No respiratory distress. HEART: Regular rate and rhythm. No murmurs, gallops, or rubs. ABDOMEN: Soft, nondistended, positive right upper quadrant tenderness. Positive Lei sign no guarding, rebound, or rigidity.. Bowel sounds present in all 4 quadrants. EXTREMITIES: Moves all 4 extremities spontaneously. No edema, radial and dorsalis pedis pulses 2/4 bilaterally. No cyanosis. NEUROLOGICAL: Alert and oriented x4. Normal speech. PSYCH: Normal affect, normal mood. SKIN: Warm, dry, normal turgor. No rashes or lesions noted. Course - Re-evaluation Re-evalutation: 05/21/17 06:11 Patient is a 37-year-old female who is hemodynamically stable, no acute distress afebrile. Presentation of chronic abdominal pain. Ultrasound negative for any evidence of acute gallbladder disease. No evidence of common bile duct obstruction. CBC stable without any evidence of leukocytosis or anemia. No evidence of electrolyte abnormalities, elevated lipase, Elevated liver function or acute renal failure. Patient to follow-up with Dr. Paula this week and due for colonoscopy and EGD in 1 week. After performing a Medical Screening Examination, I estimate there is LOW risk for ACUTE APPENDICITIS, BOWEL OBSTRUCTION, ACUTE CHOLECYSTITIS, PERFORATED DIVERTICULITIS, INCARCERATED HERNIA, PANCREATITIS, PELVIC INFLAMMATORY DISEASE, PERFORATED ULCER, ECTOPIC , or TUBO-OVARIAN ABSCESS, thus I consider the discharge disposition reasonable. Also, there is no evidence or peritonitis , sepsis, or toxicity. I have reevaluated this patient multiple times and no significant life threatening changes are noted. The patient and I have discussed the diagnosis and risks, and we agree with discharging home with close follow-up with the understanding that symptoms and presentations can change. We also discussed returning to the Emergency Department immediately if new or worsening symptoms occur. We have discussed the symptoms which are most concerning (e.g., bloody stool, fever, changing or worsening pain, vomiting) that necessitate immediate return. - Vital Signs Vital signs: Temp Pulse Resp BP Pulse Ox 98.8 F 80 16 128/66 H 100 05/21/17 02:26 05/21/17 06:21 05/21/17 06:21 05/21/17 06:21 05/21/17 06:21 - Laboratory Result Diagrams: 05/21/17 03:35 05/21/17 03:35 Laboratory results interpreted by me: 05/21/17 05/21/17 05/21/17 03:35 03:35 03:58 Hgb 11.9 L Hct 34.0 L MCV 79 L RDW 15.1 H Chloride 110 H Carbon Dioxide 21 L BUN 6 L Urine Blood SMALL H Urine Urobilinogen 4.0 H - Diagnostic Test Radiology reviewed: Reports reviewed Discharge - Discharge Clinical Impression: Abdominal pain Qualifiers: Abdominal location: right upper quadrant Qualified Code(s): R10.11 - Right upper quadrant pain Condition: Good Disposition: HOME, SELF-CARE Additional Instructions: ABDOMINAL PAIN: There are many causes of abdominal pain. Pain can mean a serious problem requiring surgery (such as appendicitis). It can also be an innocent problem that goes away on its own (such as a viral infection). Often, time must pass to determine the cause of pain. The physician does not feel that hospitalization is necessary, at present. Things may change within the next 24 hours. Call the doctor or come back for re- examination if any problems occur, such as: (1) Pain that becomes more severe, steady, or becomes concentrated in one specific area. Also, pain that is more severe with movement or coughing. (2) Vomiting that persists or becomes more frequent. (3) Blood in the vomitus, urine, or bowel movements. Blood in the stool may have a tarry or black appearance. (4) Shaking chills or fever greater than 100 degrees F. (5) The abdomen becomes more distended or swollen. (6) Bowel movements cease. (7) Failure to improve as expected. NORMAL EXAM AND WORKUP: At this time, your examination and workup show no significant abnormality. No significant abnormal physical findings are noted. All laboratory, EKG, and imaging (x-ray, CT scans, ultrasound) studies that were ordered show no significant abnormality. Although your examination and all studies that were ordered showed no significant abnormal finding, there are no examinations and no studies that are 100% accurate. There is always the possibility that some abnormality could exist and not be detected with physical examination or within the limits and capabilities of laboratory and other studies. You should return or follow up as you were instructed on your visit today for further evaluation if your symptoms do not resolve. ANTINAUSEA MEDICATION: You have been given a medication to suppress nausea and vomiting. This type of medication can be given as a shot, pill, or suppository. It will usually last for many hours. Pills and shots usually last six to eight hours, suppositories last about 12 hours. For the typical illness, only one or two doses of the medication may be necessary. Mild lightheadedness may occur. This type of medicine can cause drowsiness. Do not drive or operate dangerous machinery while under its influence. Do not mix with alcohol. See your doctor at once if you have muscle spasms or tightness, or uncontrollable motions (particularly of the neck, mouth, or jaw). Persistent vomiting or severe lightheadedness should also be evaluated by the physician. FOLLOW-UP CARE: If you have been referred to a physician for follow-up care, call the physician s office for an appointment as you were instructed or within the next two days. If you experience worsening or a significant change in your symptoms, notify the physician immediately or return to the Emergency Department at any time for re-evaluation. Prescriptions: Acetaminophen with Codeine [Acetaminophen-Cod #3 Tablet] 1 each PO BID #10 tablet Ondansetron HCl [Zofran 4 mg Tablet] 1 - 2 tab PO Q4H PRN #10 tablet PRN Reason: Referrals: HECTOR BRYANT MD [Primary Care Provider] - Follow up as needed USMAN HARRIS MD [ACTIVE STAFF] - Follow up in 1 week
[2017-05-21] MEDS ORDERED: HYDROMORPHONE HCL INJ/PF 2 MG/ML AMPULE IV ONE (05:07)
--- NOTE | 2017-05-21 06:03 | RADIOLOGY REPORT (SQ) ---
EXAM DESCRIPTION: U/S ABDOMEN LIMITED W/O DOP COMPLETED DATE/TIME: 05/21/2017 5:49 am REASON FOR STUDY: RUQ pain COMPARISON: None. TECHNIQUE: Dynamic and static grayscale images acquired of the abdomen and recorded on PACS. Additio nal selected color Doppler and spectral images recorded. LIMITATIONS: None. FINDINGS: PANCREAS: No masses. Visualized pancreatic, 0.3 cm diameter duct normal caliber. LIVER: No masses. Mild hepatic steatosis. LIVER VASCULATURE: Normal directional flow of the main portal vein and hepatic veins. GALLBLADDER: No stones. Normal wall thickness. No pericholecystic fluid. ULTRASOUND-DETECTED TELLO'S SIGN: Negative. INTRAHEPATIC DUCTS AND COMMON DUCT: 0.5 cm diameter CBD and intrahepatic ducts normal caliber. No charito ling defects. INFERIOR VENA CAVA: Normal flow. AORTA: No aneurysm. RIGHT KIDNEY: Normal size. Normal echogenicity. No solid or suspicious masses. No hydronephrosis. No calcifications. PERITONEAL AND RIGHT PLEURAL SPACE: No ascites or effusions. OTHER: No other significant findings. IMPRESSION: No acute findings. Mild hepatic steatosis. TECHNICAL DOCUMENTATION: JOB ID: [id number] [employer]- All Rights Reserved
[2017-05-21 06:22] VITALS: BP 128/66
== END 2017-05-21 06:22 | disposition home or self-care (01) ==
LOC: ER 02:24
DX: R10.11 Right upper quadrant pain (principal); G89.29 Other chronic pain; R11.0 Nausea; R19.7 Diarrhea, unspecified; D86.0 Sarcoidosis of lung; I10 Essential (primary) hypertension; J45.909 Unspecified asthma, uncomplicated; Z88.8 Allergy status to other drugs, medicaments and biological substances; Z88.1 Allergy status to other antibiotic agents; Z87.892 Personal history of anaphylaxis; Z88.5 Allergy status to narcotic agent
CPT/HCPCS: 99284; 96374; 36415; 83690; 85025; 81025; 80053; 81001; 76705; J1170

== ENCOUNTER 2017-05-28 10:25 | Emergency (ER) | payer MEDICAID ==
[2017-05-28] MEDS ORDERED: OXYCODONE-ACETAMINOPHEN 5-325 MG TABLET PO ONE (10:33)
--- NOTE | 2017-05-28 10:59 | ER Document Report ---
ED General - General Chief Complaint: Fall Injury Stated Complaint: FALL/ANKLE PAIN Time Seen by Provider: 05/28/17 10:33 Mode of Arrival: Ambulatory Information source: Patient Notes: 37-year-old female presents with complaints of left ankle pain. Patient notes she tripped and inverted her ankle and felt a pop sensation. Patient denies any fevers or chills denies any nausea vomiting or diarrhea. Patient was unable to bear weight initially. TRAVEL OUTSIDE OF THE [place] IN LAST 30 DAYS: No - HPI Onset: Just prior to arrival Onset/Duration: Sudden Quality of pain: Achy Severity: Mild Pain Level: 1 Associated symptoms: Body/muscle aches, Other Exacerbated by: Movement Relieved by: Standing Similar symptoms previously: No Recently seen / treated by doctor: No - Related Data Allergies/Adverse Reactions: meperidine HCl [From Demerol] Allergy (Severe, Verified 05/21/17 02:26) Anaphylaxis prednisone [Prednisone] Allergy (Severe, Verified 05/21/17 02:26) swell-up sulfamethoxazole [From Bactrim] Allergy (Verified 05/21/17 02:26) trimethoprim [From Bactrim] Allergy (Verified 05/21/17 02:26) morphine [Morphine] Adverse Reaction (Mild, Verified 05/21/17 02:26) Hives Past Medical History - Social History Smoking Status: Never Smoker Cigarette use (# per day): No Chew tobacco use (# tins/day): No Smoking Education Provided: No Frequency of alcohol use: None Drug Abuse: None Family History: Arthritis, DM, Hypertension, Malignancy - Past Medical History Cardiac Medical History: Reports: Hx Hypertension Pulmonary Medical History: Reports: Hx Asthma Comment Only: Hx Pneumonia - Sarcoidosis lungs Neurological Medical History: Reports: Hx Migraine Endocrine Medical History: Renal/ Medical History: Reports: Hx Ovarian Cysts. Denies: Hx Peritoneal Dialysis GI Medical History: Reports: Hx Gastritis, Hx Hiatal Hernia, Hx Ulcer - H pylori , sarcoidosis, fibromyalgia Musculoskeltal Medical History: Reports Hx Arthritis - osteo, Reports Hx Fibromyalgia Skin Medical History: Denies Hx MRSA Psychiatric Medical History: Reports: Hx Depression - & anxiety Past Surgical History: Reports: Hx Gynecologic Surgery - polyps, ovarian cysts, Hx Orthopedic Surgery - ganglion cyst, Hx Tubal Ligation - Immunizations Immunizations up to date: Yes Hx Diphtheria, Pertussis, Tetanus Vaccination: Yes - January 2015 Hx Pneumococcal Vaccination: 08/28/16 Review of Systems - Review of Systems Notes: REVIEW OF SYSTEMS: CONSTITUTIONAL : Denies fever, chills, or sweats. Denies recent illness. EENT: Denies eye, ear, throat, or mouth pain or symptoms. Denies nasal or sinus congestion or discharge. Denies throat, tongue, or mouth swelling or difficulty swallowing. CARDIOVASCULAR: Denies chest pain. Denies palpitations or racing or irregular heart beat. Denies ankle edema. RESPIRATORY: Denies cough, cold, or chest congestion. Denies shortness of breath, difficulty breathing, or wheezing. GASTROINTESTINAL: Denies abdominal pain or distention. Denies nausea, vomiting , or diarrhea. Denies blood in vomitus, stools, or per rectum. Denies black, tarry stools. Denies constipation. GENITOURINARY: Denies difficulty urinating, painful urination, burning, frequency, blood in urine, or discharge. FEMALE GENITOURINARY: Denies vaginal bleeding, heavy or abnormal periods, irregular periods. Denies vaginal discharge or odor. MUSCULOSKELETAL: Admits to left ankle pain SKIN: Denies rash, lesions or sores. HEMATOLOGIC : Denies easy bruising or bleeding. LYMPHATIC: Denies swollen, enlarged glands. NEUROLOGICAL: Denies confusion or altered mental status. Denies passing out or loss of consciousness. Denies dizziness or lightheadedness. Denies headache. Denies weakness or paralysis or loss of use of either side. Denies problems with gait or speech. Denies sensory loss, numbness, or tingling. Denies seizures. PSYCHIATRIC: Denies anxiety or stress. Denies depression, suicidal ideation, or homicidal ideation. ALL OTHER SYSTEMS REVIEWED AND NEGATIVE. PHYSICAL EXAMINATION: GENERAL: Well-appearing, well-nourished and in no acute distress. HEAD: Atraumatic, normocephalic. EYES: Pupils equal round and reactive to light, extraocular movements intact, conjunctiva are normal. ENT: Nares patent, oropharynx clear without exudates. Moist mucous membranes. NECK: Normal range of motion, supple without lymphadenopathy LUNGS: Breath sounds clear to auscultation bilaterally and equal. No wheezes rales or rhonchi. HEART: Regular rate and rhythm without murmurs ABDOMEN: Soft, nontender, nondistended abdomen. No guarding, no rebound. No masses appreciated. Female : deferred Musculoskeletal: Normal range of motion, no pitting or edema. No cyanosis. Patient is able to move the digits on her feet has full sensation but is tender around the ankle NEUROLOGICAL: Cranial nerves grossly intact. Normal speech, normal gait. Normal sensory, motor exams PSYCH: Normal mood, normal affect. SKIN: Warm, Dry, normal turgor, no rashes or lesions noted. Dictation was performed using [employer] voice recognition software Physical Exam - Vital signs Vitals: Temp Pulse Resp BP Pulse Ox 99.0 F 72 18 131/73 H 100 05/28/17 10:32 05/28/17 10:32 05/28/17 10:32 05/28/17 10:32 05/28/17 10:32 Course - Re-evaluation Re-evalutation: 05/28/17 11:30 Patient heard a pop sensation therefore I have concerns for ligamentous injury, x-ray was negative I will splint her ankle and have her follow-up with orthopedics in 1 week for further evaluation. Patient has been instructed if symptoms worsen to return immediately After performing a Medical Screening Examination, I estimate there is LOW risk for INTRACRANIAL HEMORRHAGE, UNSTABLE SPINE FRACTURE, CENTRAL CORD SYNDROME, CAUDA EQUINA, THORACIC AORTIC DISSECTION, PNEUMOTHORAX, PERFORATED BOWEL, RUPTURED ABDOMINAL AORTIC ANEURYSM, ACUTE TENDON RUPTURE, COMPARTMENT SYNDROME, or OPEN FRACTURE, thus I consider the discharge disposition reasonable. Also, there is no evidence or peritonitis, sepsis, or toxicity. I have reevaluated this patient multiple times and no significant life threatening changes are noted. The patient and I have discussed the diagnosis and risks, and we agree with discharging home to follow-up with their primary doctor with the understanding that symptoms and presentations can change. We also discussed returning to the Emergency Department immediately if new or worsening symptoms occur. We have discussed the symptoms which are most concerning (e.g., bloody stool, fever, changing or worsening pain, vomiting) that necessitate immediate return. - Vital Signs Vital signs: Temp Pulse Resp BP Pulse Ox 99.0 F 72 18 131/73 H 100 05/28/17 10:32 05/28/17 10:32 05/28/17 10:32 05/28/17 10:32 05/28/17 10:32 - Diagnostic Test Radiology reviewed: Image reviewed, Reports reviewed Procedures - Immobilization Left Ankle Time completed: 11:33 Pre-Proc Neuro Vasc Exam: Normal Immobilizer type: Ankle stirrup Performed by: PCT Post-Proc Neuro Vasc Exam: Normal Alignment checked and good: Yes Discharge - Discharge Clinical Impression: Ankle injury Qualifiers: Encounter type: initial encounter Laterality: left Qualified Code(s): S99.912A - Unspecified injury of left ankle, initial encounter Condition: Stable Disposition: HOME, SELF-CARE Instructions: Ankle Stirrup Splint ([facility]), Sprained Ankle ([facility]) Prescriptions: Oxycodone HCl/Acetaminophen [Percocet 5-325 mg Tablet] 1 - 2 tab PO Q4H PRN #15 tablet PRN Reason: Forms: Return to School Referrals: AARTI MEHTA MD [ACTIVE STAFF] - Follow up in 1 week
--- NOTE | 2017-05-28 11:01 | RADIOLOGY REPORT (SQ) ---
EXAM DESCRIPTION: ANKLE LEFT COMPLETE COMPLETED DATE/TIME: 05/28/2017 10:49 am REASON FOR STUDY: bed 19 fall +ankle pain per dr hubbard COMPARISON: None. NUMBER OF VIEWS: Three views. TECHNIQUE: AP, lateral, and oblique radiographic images acquired of the left ankle. LIMITATIONS: None. FINDINGS: MINERALIZATION: Normal. BONES: No acute fracture or dislocation. No worrisome bone lesions. JOINTS: No effusions. SOFT TISSUES: No soft tissue swelling. No foreign body. OTHER: No other significant finding. IMPRESSION: NEGATIVE STUDY OF THE LEFT ANKLE. NO RADIOGRAPHIC EVIDENCE OF ACUTE INJURY. TECHNICAL DOCUMENTATION: JOB ID: [id number] [employer]- All Rights Reserved
[2017-05-28 11:57] VITALS: BP 118/80
== END 2017-05-28 11:57 | disposition home or self-care (01) ==
LOC: ER 10:25
PROC: 2W3RX1Z Immobilization of Left Lower Leg using Splint (ICD-10-PCS; principal; 2017-05-28)
DX: S99.912A Unspecified injury of left ankle, initial encounter (principal); M25.572 Pain in left ankle and joints of left foot; W01.0XXA Fall on same level from slipping, tripping and stumbling without subsequent striking against object, initial encounter
CPT/HCPCS: 99283

== ENCOUNTER 2017-05-29 11:01 | Emergency (ER) | payer MEDICAID ==
--- NOTE | 2017-05-29 11:38 | ER Document Report ---
HPI - HPI Patient complains to provider of: Left ankle pain Onset: Yesterday Onset/Duration: Persistent Quality of pain: Sharp Pain Level: 4 Context: Patient states that she missed 2 steps and felt a pop in her lateral ankle area. Patient states pain radiates down into her foot. Patient states that her splint has been painful and she has not followed up with her primary doctor or orthopedic doctor since the injury. Patient denies any new injury. Associated Symptoms: Other - Left ankle and foot pain Exacerbated by: Movement Relieved by: Denies Similar symptoms previously: No Recently seen / treated by doctor: Yes - ROS ROS below otherwise negative: Yes Systems Reviewed and Negative: Yes All other systems reviewed and negative - CONSTITUTIONAL Constitutional: DENIES: Fever - NEURO Neurology: DENIES: Weakness - REPRODUCTIVE Reproductive: DENIES: : - MUSCULOSKELETAL Musculoskeletal: REPORTS: Extremity pain - DERM Skin Color: Normal Skin Problems: None Past Medical History - General Information source: Patient - Social History Smoking Status: Never Smoker Frequency of alcohol use: None Drug Abuse: None Lives with: Family Family History: Arthritis, DM, Hypertension, Malignancy - Past Medical History Cardiac Medical History: Reports: Hx Hypertension Pulmonary Medical History: Reports: Hx Asthma Comment Only: Hx Pneumonia - Sarcoidosis lungs Neurological Medical History: Reports: Hx Migraine Endocrine Medical History: Renal/ Medical History: Reports: Hx Ovarian Cysts. Denies: Hx Peritoneal Dialysis GI Medical History: Reports: Hx Gastritis, Hx Hiatal Hernia, Hx Ulcer - H pylori , sarcoidosis, fibromyalgia Musculoskeltal Medical History: Reports Hx Arthritis - osteo, Reports Hx Fibromyalgia Skin Medical History: Denies Hx MRSA Psychiatric Medical History: Reports: Hx Depression - & anxiety Past Surgical History: Reports: Hx Gynecologic Surgery - polyps, ovarian cysts, Hx Orthopedic Surgery - ganglion cyst, Hx Tubal Ligation - Immunizations Immunizations up to date: Yes Hx Diphtheria, Pertussis, Tetanus Vaccination: Yes - January 2015 Hx Pneumococcal Vaccination: 08/28/16 Vertical Provider Document - CONSTITUTIONAL Agree With Documented VS: Yes Exam Limitations: No Limitations General Appearance: WD/WN, No Apparent Distress - INFECTION CONTROL TRAVEL OUTSIDE OF THE [place] IN LAST 30 DAYS: No - HEENT HEENT: Atraumatic, Normocephalic - NECK Neck: Normal Inspection - RESPIRATORY Respiratory: No Respiratory Distress O2 Sat by Pulse Oximetry: 96 - CARDIOVASCULAR Pulses: Normal: Dorsalis pedis - MUSCULOSKELETAL/EXTREMETIES Musculoskeletal/Extremeties: MAEW, Tender - Left ankle tenderness over lateral malleolar area, left midfoot tenderness over cuboid bone, no obvious deformity, 1+ edema to lateral malleolar area, Edema. negative: Eccymosis - NEURO Level of Consciousness: Awake, Alert, Appropriate Motor/Sensory: No Motor Deficit - DERM Integumentary: Warm, Dry, No Rash Course - Vital Signs Vital signs: Temp Pulse Resp BP Pulse Ox 99.4 F 81 18 133/87 H 96 05/29/17 11:05 05/29/17 11:05 05/29/17 11:05 05/29/17 11:05 05/29/17 11:05 - Diagnostic Test Radiology reviewed: Image reviewed, Reports reviewed - Reviewed radiology report from yesterday as well as today Procedures - Immobilization Left Ankle Pre-Proc Neuro Vasc Exam: Normal Immobilizer type: Posterior ankle Performed by: PCT Post-Proc Neuro Vasc Exam: Normal Alignment checked and good: Yes Discharge - Discharge Clinical Impression: Sprain of foot, left Qualifiers: Encounter type: initial encounter Qualified Code(s): S93.602A - Unspecified sprain of left foot, initial encounter Left ankle sprain Qualifiers: Encounter type: initial encounter Involved ligament of ankle: unspecified ligament Qualified Code(s): S93.402A - Sprain of unspecified ligament of left ankle, initial encounter Condition: Stable Disposition: HOME, SELF-CARE Instructions: Use of Crutches ([facility]), Ice Packs ([facility]), Splint Precautions ([facility]) , Sprain ([facility]), Sprained Ankle ([facility]) Additional Instructions: Return immediately for any new or worsening symptoms Followup with your primary care provider, call tomorrow to make a followup appointment Follow-up with orthopedic doctor for further evaluation, call today to make a follow-up appointment Referrals: [facility] [Provider Group] - Follow up as needed HECTOR BRYANT MD [ACTIVE STAFF] - Follow up tomorrow
--- NOTE | 2017-05-29 12:20 | RADIOLOGY REPORT (SQ) ---
EXAM DESCRIPTION: FOOT LEFT COMPLETE COMPLETED DATE/TIME: 05/29/2017 12:05 pm REASON FOR STUDY: fall down step, left midfoot pain COMPARISON: None. NUMBER OF VIEWS: Three views. TECHNIQUE: AP, lateral and oblique radiographic images acquired of the left foot. LIMITATIONS: None. FINDINGS: MINERALIZATION: Normal. BONES: No acute fracture or dislocation. No worrisome bone lesions. JOINTS: No effusions. SOFT TISSUES: Mild forefoot soft tissue swelling. No foreign body. OTHER: No other significant finding. IMPRESSION: Forefoot soft tissue swelling. No underlying acute fracture TECHNICAL DOCUMENTATION: JOB ID: [id number] [employer]- All Rights Reserved
[2017-05-29 13:56] VITALS: BP 127/87
== END 2017-05-29 13:53 | disposition home or self-care (01) ==
LOC: ER 11:01
DX: S93.402A Sprain of unspecified ligament of left ankle, initial encounter (principal); S93.602A Unspecified sprain of left foot, initial encounter; X50.0XXA Overexertion from strenuous movement or load, initial encounter; Y92.009 Unspecified place in unspecified non-institutional (private) residence as the place of occurrence of the external cause; I10 Essential (primary) hypertension; J45.909 Unspecified asthma, uncomplicated
CPT/HCPCS: 99283

== ENCOUNTER → 2017-06-22 | Outpatient (CLI) | payer MEDICAID ==
--- NOTE | 2017-06-22 10:29 | RADIOLOGY REPORT (SQ) ---
EXAM DESCRIPTION: CT CHEST WITHOUT COMPLETED DATE/TIME: 06/22/2017 8:57 am REASON FOR STUDY: OTHER NON SPECIFIC FINDING OF LUNG FIELD (R91.8) R91.8 OTHER NONSPECIFIC ABNORMAL FINDING OF LUNG FIELD COMPARISON: 04/26/2015 TECHNIQUE: CT scan performed of the chest without intravenous contrast. Images reviewed with lung, soft tissue and bone windows. Reconstructed coronal and sagittal MPR images reviewed. All images st ored on PACS. All CT scanners at this facility use dose modulation, iterative reconstruction, and/or weight based d osing when appropriate to reduce radiation dose to as low as reasonably achievable (ALARA). [facility]: Dose Right [facility]: CareDose [facility]: Dose Right [facility]: Teradose 4D [facility]: [employer] RADIATION DOSE: Up-to-date CT equipment and radiation dose reduction techniques were employed. CTDIv ol: 15.5 mGy. DLP: 634 mGy-cm. mGy. LIMITATIONS: No technical limitations. FINDINGS: LUNGS AND PLEURA: Stable scarring in the left lower lobe. No suspicious nodules. No effu sions. HILAR AND MEDIASTINAL STRUCTURES: No identified masses or abnormal nodes. No obvious aneurysm. HEART AND VASCULAR STRUCTURES: No aneurysm. No pericardial effusion. UPPER ABDOMEN: No significant findings. Limited exam. THYROID AND OTHER SOFT TISSUES: No masses. No adenopathy. BONES: No significant finding. HARDWARE: None in the chest. OTHER: No other significant findings. IMPRESSION: NO SIGNIFICANT FINDING ON NON-CONTRASTED CHEST CT. TECHNICAL DOCUMENTATION: JOB ID: [id number] Quality ID # [id number]: Final reports with documentation of one or more dose reduction techniques (e.g., Au tomated exposure control, adjustment of the mA and/or kV according to patient size, use of iterative reconstruction technique) 2010 [employer]- All Rights Reserved
== END ==
LOC: RAD 08:28
PROVIDERS: ATTEND Internal Medicine Pulmonary Disease
DX: R91.8 Other nonspecific abnormal finding of lung field (principal)
CPT/HCPCS: 71250

== ENCOUNTER 2017-06-26 08:06 | Emergency (ER) | payer MEDICAID ==
[2017-06-26 08:16] VITALS: BP 141/80
--- NOTE | 2017-06-26 08:42 | ER Document Report ---
HPI - HPI Pain Level: 4 Notes: Patient is a 37-year-old female who presents the ED complaining of the start of a possible abscess/cellulitis to the suprapubic area 2-3 days. Patient states that she noticed where a cyst was previously removed that she is having scant drainage and a slight opening to the skin. Patient states that Dr. Hernandez performed the surgery a few months ago. Patient has not noticed any red streaks. She is still eating and drinking without any difficulties. Patient states that she did feel feverish yesterday, but not today. She has not been placing anything over the open wound. Patient states that she does have a follow-up with general surgery on Tuesday. No other concerns or complaints at this time. Denies any headache, URI, sore throat, chest pain, palpitations, syncope, cough, shortness of breath, wheeze, dyspnea, abdominal pain, nausea/ vomiting/diarrhea, dysuria, hematuria. Pt states that she does have recurrent issues with abscesses and needing antibiotics with a recent one 1.5 weeks ago approx for an axilla abscess. Pt was on keflex for that infection and finished it a few days ago. - ROS Notes: REVIEW OF SYSTEMS: CONSTITUTIONAL : Denies fever, chills, or sweats. Denies recent illness. EENT: Denies eye, ear, throat, or mouth pain or symptoms. Denies nasal or sinus congestion or discharge. Denies throat, tongue, or mouth swelling or difficulty swallowing. CARDIOVASCULAR: Denies chest pain. Denies palpitations or racing or irregular heart beat. Denies ankle edema. RESPIRATORY: Denies cough, cold, or chest congestion. Denies shortness of breath, difficulty breathing, or wheezing. GASTROINTESTINAL: Denies abdominal pain or distention. Denies nausea, vomiting , or diarrhea. GENITOURINARY: Denies difficulty urinating, painful urination, burning, frequency, blood in urine, or discharge. MUSCULOSKELETAL: Denies back or neck pain or stiffness. Denies joint pain or swelling. SKIN: see hpi NEUROLOGICAL: Denies confusion or altered mental status. Denies passing out or loss of consciousness. Denies dizziness or lightheadedness. Denies headache. Denies weakness or paralysis or loss of use of either side. Denies problems with gait or speech. Denies sensory loss, numbness, or tingling. ALL OTHER SYSTEMS REVIEWED AND NEGATIVE. Dictation was performed using [employer] voice recognition software - REPRODUCTIVE Reproductive: DENIES: : Past Medical History - Social History Smoking Status: Unknown if Ever Smoked Family History: Arthritis, DM, Hypertension, Malignancy - Past Medical History Cardiac Medical History: Reports: Hx Hypertension Pulmonary Medical History: Reports: Hx Asthma Comment Only: Hx Pneumonia - Sarcoidosis lungs Neurological Medical History: Reports: Hx Migraine Endocrine Medical History: Renal/ Medical History: Reports: Hx Ovarian Cysts. Denies: Hx Peritoneal Dialysis GI Medical History: Reports: Hx Gastritis, Hx Hiatal Hernia, Hx Ulcer - H pylori , sarcoidosis, fibromyalgia Musculoskeltal Medical History: Reports Hx Arthritis - osteo, Reports Hx Fibromyalgia Skin Medical History: Denies Hx MRSA Psychiatric Medical History: Reports: Hx Depression - & anxiety Past Surgical History: Reports: Hx Gynecologic Surgery - polyps, ovarian cysts, Hx Orthopedic Surgery - ganglion cyst, Hx Tubal Ligation - Immunizations Immunizations up to date: Yes Hx Diphtheria, Pertussis, Tetanus Vaccination: Yes - January 2015 Hx Pneumococcal Vaccination: 08/28/16 Vertical Provider Document - CONSTITUTIONAL Agree With Documented VS: Yes Notes: PHYSICAL EXAMINATION: GENERAL: Well-appearing, well-nourished and in no acute distress. LUNGS: Breath sounds clear to auscultation bilaterally and equal. No wheezes rales or rhonchi. HEART: Regular rate and rhythm without murmurs, rubs, gallops. ABDOMEN: Soft, nontender, nondistended abdomen. No guarding, no rebound. No masses appreciated. Normal bowel sounds present. No CVA tenderness bilaterally. Extremities: No cyanosis, clubbing, or edema b/l. Peripheral pulses 2+. Capillary refill less than 3 seconds. NEUROLOGICAL: Normal speech, normal gait. Normal sensory, motor exams PSYCH: Normal mood, normal affect. SKIN: very small 0.5cm mildly erythemic area with a pencil tip point of opening to the skin w/o obvious discharge. + mild tenderness to the area without streak /induration. Area noted to be within a hair follicle as well. - INFECTION CONTROL TRAVEL OUTSIDE OF THE [place] IN LAST 30 DAYS: No - RESPIRATORY O2 Sat by Pulse Oximetry: 99 Course - Re-evaluation Re-evalutation: 06/26/17 08:39 Patient is an afebrile, well-hydrated, 37-year-old female who presents the ED with a small cellulitic area to the suprapubic area. Vitals are stable. PE is otherwise unremarkable. No incision and drainage warranted at this time. No wound culture is able to be obtained. Patient did just finished Keflex a few days ago and she is allergic to Bactrim. I will send her home with a prescription for doxycycline to take as directed. wound dressing with bacitracin was placed today. Patient to monitor symptoms closely for any worsening symptoms. Patient does have a follow-up scheduled with general surgery in 3 days. I would like her to also have that area reevaluated in 3 days with a general surgeon to assess for any further management or treatment. I did review with the patient that there is possibility that some of the cyst could be left over that was excised previously, and/or could be associated with her glands/follicles. Conservative measures for symptoms otherwise. Recheck with your PCM this week as well. Return to the ED with any worsening/ concerning symptoms otherwise as reviewed in discharge. Patient is in agreement. - Vital Signs Vital signs: Temp Pulse Resp BP Pulse Ox 98.5 F 62 15 141/80 H 99 06/26/17 08:12 06/26/17 08:12 06/26/17 08:12 06/26/17 08:12 06/26/17 08:12 Discharge - Discharge Clinical Impression: Cellulitis Qualifiers: Site of cellulitis: trunk Site of cellulitis of trunk: abdominal wall Qualified Code(s): L03.311 - Cellulitis of abdominal wall Condition: Stable Disposition: HOME, SELF-CARE Instructions: Cellulitis ([facility]), Doxycycline ([facility]), Antibiotic Ointment Protection ([facility]) Additional Instructions: Keep the skin clean Wash with soap and water Tylenol/ibuprofen if needed Take antibiotics as directed Use bacitracin daily Recheck with your PCM this week Keep consult with general surgery on Tuesday for further evaluation and management Return to the ED with any worsening symptoms and/or development of fever, headache, chest pain, palpitations, syncope, shortness of breath, trouble breathing, abdominal pain, n/v/d, dysuria, abscess, purulent discharge, red streaks, or other worsening symptoms that are concerning to you. Prescriptions: Doxycycline Hyclate 100 mg PO BID #20 capsule Forms: Elevated Blood Pressure Referrals: ANNIA HERNANDEZ MD [ACTIVE STAFF] - 06/29/17
== END 2017-06-26 09:08 | disposition home or self-care (01) ==
LOC: ER 08:06
DX: L03.311 Cellulitis of abdominal wall (principal); L02.211 Cutaneous abscess of abdominal wall
CPT/HCPCS: 99282

== ENCOUNTER 2017-07-12 06:44 | Day surgery (SDC) | payer MEDICAID ==
--- NOTE | 2017-07-11 10:54 | EKG REPORT ---
SEVERITY:- NORMAL ECG - SINUS RHYTHM : Confirmed by: Ramón Castillo 11-Jul-2017 10:53:29
[~2017-07-12 06:44] MED LIST: CEFAZOLIN 1 GM/D5W RTU 1 GM/50 ML RTUPB IV PRN; LACTATED RINGERS 1000 ML IV PRN; LIDOCAINE 0.5% INJ-PF (5 MG/ML) 50 ML SDV SUBCUT PRN
[2017-07-12] MEDS ORDERED: BUPIVACAINE HCL 0.25 % INJ/PF (2.5 MG/1 ML) 30 ML VIAL ONE (07:46)
[2017-07-12] MEDS ORDERED: BACITRACIN INJ 50,000 UNIT VIAL ONE (07:46)
[2017-07-12] MEDS ORDERED: LIDOCAINE 0.5% INJ-PF (5 MG/ML) 50 ML SDV ONE (07:46)
[2017-07-12] MEDS ORDERED: MIDAZOLAM 2 MG/2 ML INJ ONE ×2 (08:00→08:07)
[2017-07-12] MEDS ORDERED: FAMOTIDINE INJ/PF 20 MG/2 ML SDV IV ONE (08:01)
[2017-07-12] MEDS ORDERED: FENTANYL CITRATE INJ/PF 100 MCG/2 ML AMPUL ONE ×2 (08:07→11:30)
[2017-07-12] MEDS ORDERED: PROPOFOL INJ 200 MG/20 ML VIAL IV ONE (08:08)
[2017-07-12] MEDS ORDERED: ACETAMINOPHEN 100 ML IV ONE (08:08)
[2017-07-12] MEDS ORDERED: PHENYLEPHRINE HCL INJ/PF 10 MG/1 ML SDV ONE (08:47)
[2017-07-12] MEDS ORDERED: ONDANSETRON HCL INJ/PF 4 MG/2 ML SDV ONE ×2 (08:47→13:05)
[2017-07-12] MEDS ORDERED: LIDOCAINE 2% INJ-PF (20 MG/ML) 2 ML AMPUL ONE (08:47)
[2017-07-12] MEDS ORDERED: SUCCINYLCHOLINE CHLORIDE INJ 200 MG/10 ML VIAL ONE (08:47)
[2017-07-12] MEDS ORDERED: DEXAMETHASONE SOD PHOSPHATE INJ 4 MG/1 ML VIAL ONE (08:47)
[2017-07-12] MEDS ORDERED: GLYCOPYRROLATE INJ 0.4 MG/2 ML VIAL ONE (08:47)
[2017-07-12] MEDS ORDERED: FENTANYL CITRATE INJ/PF 100 MCG/2 ML AMPUL IV PRN ×3 (11:00)
[2017-07-12] MEDS ORDERED: ONDANSETRON HCL INJ/PF 4 MG/2 ML SDV IV PRN (11:00)
[2017-07-12] MEDS ORDERED: DIPHENHYDRAMINE HCL 50 MG/ML VIAL IV PRN (11:00)
--- NOTE | 2017-07-12 11:54 | PDOC DISCHARGE SUMMARY ---
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 2. Sarcoidosis. 3. Fibromyalgia. 4. Polyarthritis. Date of Surgery: 07/12/17 Discharge Date: 07/12/17 Condition: Good Treatment or Instructions: Discharge home [after recovery per ASU criteria]. Diet ,,as tolerated, when fully awake advance as tolerated. Activities within moderation encouraged. Follow up in my office by appointment in about [1 week]. Call for appointment. Leave wounds [covered], [keep clean and dry, until office visit in 1 week]. Empty drain as needed. Train patient in use of drain. Hold of on school/work [until evaluation in office]. Meds per med rec. Percocet prescription. May shower [in 48 hrs], [try to keep operated area as dry as possible]. Prescriptions: Oxycodone HCl/Acetaminophen [Percocet 5-325 mg Tablet] 1 tab PO ASDIR PRN #15 tab PRN Reason: Referrals: HECTOR BRYANT MD [Primary Care Provider] - Respiratory Treatments at Home: Deep Breathing/Coughing Discharge Activity: Activity As Tolerated Report the Following to Your Physician Immediately: Shortness of Breath, Unusual Bleeding
--- NOTE | 2017-07-12 11:59 | Operative Report ---
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 2. Sarcoidosis. 3. Fibromyalgia. 4. Polyarthritis. 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 Post excision. 2. Sarcoidosis. 3. Fibromyalgia. 4. Polyarthritis. OPERATION: Excision of hidradenitis, hairbearing area of the left axilla. Rotation flaps for tension-free closure of the axillary defect. Excision of limited involved \ superior pubic area of skin. SURGEON: JAMES CEE MEDICAL SOCIAL WORKER: ROD COATES ANESTHESIA: GA TISSUE REMOVED OR ALTERED: 1. Diseased, hairbearing area of left axilla. 2. Resolving inflamed area of suprapubic area. COMPLICATIONS: None. ESTIMATED BLOOD LOSS: 20 mL. INTRAOPERATIVE FINDINGS: Of heavily scarred left axillary area. Little chronic inflammation. Resolved almost resolved inflammation in transverse area in the mid to left suprapubic area. Both excised to satisfaction with normal healthy tissues remaining. PROCEDURE: The patient was taken to the operating room and positioned supine. She was anesthetized and intubated. The left axilla and left upper extremity were prepared with chlorhexidine and draped out with sterile linen. The arm was positioned at approximately 90 to the patient. Free draped. A roll placed beneath the shoulder to keep the axilla off the bed. In addition the groin area and suprapubic areas were prepared separately. And draped separately. After the universal timeout, in which it was verified that the patient received IV antibiotic, for anaerobic coverage, and that the correct site was being operated on, the procedure commenced. The involved left axillary skin was noted and marked. This was somewhat elliptical so as to include all of the involved skin. Local anesthesia was infiltrated in the skin and subcutaneous tissues around and beneath the involved area. The incision now commenced at the inferior aspect so as to incise the skin border in a V-shaped. This was now grasped with a Penny clamp. The Penny clamp was placed on traction and dissection proceeded piecemeal on either side and beneath the skin flaps. In this way the diseased tissue was excised with a minimum of blood loss. It was submitted for pathology. The specimen was handed off the field and the gloves were changed, the wound irrigated. This is in an effort to avoid contaminating the fresh wound. Hemostasis was now secured using electrocautery. Once this was done skin approximation was up attempted. It was noted that there was need for a rotation flap in order to secure tension-free closure. Rakes were now used to elevate skin and a sick flap was now raised medially and then laterally, staying in the deep subcutaneous tissues. This continued for a distance of 4-6 cm on either side. From time to time the closure was tested. At about the 4 cm area, found to be very satisfactory. Hemostasis was again secured. A 15 Brazilian Rashawn drain was now inserted through an inferior anterior counterincision. The drain was anchored using 2-0 Prolene. The wound was now closed. First interrupted 2-0 Prolene sutures were placed about 2-1/2 cm away from the skin edge, and situated about 2-1/2 cm apart. These were left untied for the time being. Closure was now done using interrupted 3-0 PDS sutures used to approximate the subcutaneous tissues beneath and across incision. The rotation done to get tissue into the defect. This was done and approximated in a cosmetic fashion. The skin was now closed using a continuous subcutaneous suture of 4-0 Monocryl which was reinforced with Steri-Strips over benzoin. Acticoat dressing was now applied and held in place with Steri-Strips. Folded fluffy dressings and ABDs were now placed over the incision and tied in place using the previously placed 2-0 Prolene sutures and the procedure concluded. Consideration given to giving Toradol for optimal pain relief. It was decided not to do so because of uncertainty as to how it affects her sarcoidosis.
[2017-07-12] MEDS: FENTANYL CITRATE INJ/PF 100 MCG/2 ML AMPUL ONE ×2 (12:30→12:41)
[2017-07-12] MEDS ORDERED: OXYCODONE-ACETAMINOPHEN 5-325 MG TABLET ONE (13:18)
[2017-07-12] MEDS ORDERED: HYDROMORPHONE HCL INJ/PF 2 MG/ML AMPULE ONE (14:13)
[2017-07-12 15:37] VITALS: BP 124/84
== END 2017-07-12 15:30 | disposition home or self-care (01) ==
LOC: OROUT 06:44
PROVIDERS: ATTEND Surgery
PROC: 0HXCXZZ Transfer Left Upper Arm Skin, External Approach (ICD-10-PCS; 2017-07-12)
PROC: 0HBCXZZ Excision of Left Upper Arm Skin, External Approach (ICD-10-PCS; 2017-07-12)
PROC: 0JBC0ZZ Excision of Pelvic Region Subcutaneous Tissue and Fascia, Open Approach (ICD-10-PCS; 2017-07-12)
PROC: 0JBF0ZZ Excision of Left Upper Arm Subcutaneous Tissue and Fascia, Open Approach (ICD-10-PCS; principal; 2017-07-12 09:00)
DX: L73.2 Hidradenitis suppurativa (principal); D86.9 Sarcoidosis, unspecified; M79.7 Fibromyalgia; M19.90 Unspecified osteoarthritis, unspecified site; J45.909 Unspecified asthma, uncomplicated; M35.00 Sjogren syndrome, unspecified; Z88.5 Allergy status to narcotic agent; Z88.2 Allergy status to sulfonamides; Z87.891 Personal history of nicotine dependence; Z79.899 Other long term (current) drug therapy; Z79.51 Long term (current) use of inhaled steroids
CPT/HCPCS: 93005; 36415; 82962; 81025; 88305 ×2; 93010; 11451; 11462; J2250; J3490 ×4; J0690; J1100; J3010; J1170; J2370; J0330; J2405; S0020; J2704; S0028; J0131; 400

== ENCOUNTER 2017-08-14 11:44 | Emergency (ER) | payer MEDICAID | END 2017-08-14 14:55 | disposition home or self-care (01) | LOC: ER 11:44 | DX: S29.012A Strain of muscle and tendon of back wall of thorax, initial encounter (principal); J40 Bronchitis, not specified as acute or chronic; R09.1 Pleurisy; M79.7 Fibromyalgia; X58.XXXA Exposure to other specified factors, initial encounter; D86.9 Sarcoidosis, unspecified | CPT/HCPCS: 99283 ==

== ENCOUNTER 2017-10-19 10:11 | Emergency (ER) | payer MEDICAID ==
[2017-10-19] MEDS ORDERED: NORMAL SALINE 1000 ML 1,000 ML IV ONE (11:04)
[2017-10-19] MEDS ORDERED: ONDANSETRON HCL INJ/PF 4 MG/2 ML SDV IV ONE (11:04)
--- NOTE | 2017-10-19 11:06 | ER Document Report ---
ED Medical Screen (RME) - General Chief Complaint: Abdominal Pain Stated Complaint: ABDOMINAL PAIN Time Seen by Provider: 10/19/17 11:03 Notes: Patient presents with severe right upper quadrant and epigastric pain. She is also had vomiting. She states she has a history of fibromyalgia and sarcoidosis. TRAVEL OUTSIDE OF THE [place] IN LAST 30 DAYS: No - Related Data Allergies/Adverse Reactions: meperidine HCl [From Demerol] Allergy (Severe, Verified 10/19/17 10:14) Anaphylaxis prednisone [Prednisone] Allergy (Severe, Verified 10/19/17 10:14) swell-up sulfamethoxazole [From Bactrim] Allergy (Verified 10/19/17 10:14) Hives trimethoprim [From Bactrim] Allergy (Verified 10/19/17 10:14) Hives morphine [Morphine] Adverse Reaction (Mild, Verified 10/19/17 10:14) Hives Past Medical History - Social History Chew tobacco use (# tins/day): No Frequency of alcohol use: None Drug Abuse: None - Past Medical History Cardiac Medical History: Reports: Hx Hypertension - depending on pain level Denies: Hx Coronary Artery Disease, Hx Heart Attack Pulmonary Medical History: Reports: Hx Asthma Denies: Hx Bronchitis, Hx COPD, Hx Pneumonia - Sarcoidosis lungs Neurological Medical History: Reports: Hx Migraine. Denies: Hx Cerebrovascular Accident, Hx Seizures Endocrine Medical History: Renal/ Medical History: Reports: Hx Ovarian Cysts. Denies: Hx Peritoneal Dialysis GI Medical History: Reports: Hx Gastritis, Hx Hiatal Hernia, Hx Ulcer - H pylori , sarcoidosis, fibromyalgia Musculoskeltal Medical History: Reports Hx Arthritis - osteo, Reports Hx Fibromyalgia Skin Medical History: Denies Hx MRSA Psychiatric Medical History: Reports: Hx Depression - & anxiety Past Surgical History: Reports: Hx Gynecologic Surgery - polyps, ovarian cysts, Hx Orthopedic Surgery - ganglion cyst, Hx Tubal Ligation - Immunizations Immunizations up to date: Yes Hx Diphtheria, Pertussis, Tetanus Vaccination: Yes - January 2015 History of Influenza Vaccine for 05/2017 - 10/2017 Season: Yes Influenza Administration Date for 05/2017 - 10/2017 Season: 06/08/17 Physical Exam - Vital signs Vitals: Temp Pulse Resp BP Pulse Ox 98.3 F 81 16 126/83 H 99 10/19/17 10:35 10/19/17 10:35 10/19/17 10:35 10/19/17 10:35 10/19/17 10:35 Course - Vital Signs Vital signs: Temp Pulse Resp BP Pulse Ox 98.3 F 81 16 126/83 H 99 10/19/17 10:35 10/19/17 10:35 10/19/17 10:35 10/19/17 10:35 10/19/17 10:35
[2017-10-19] MEDS ORDERED: FENTANYL CITRATE INJ/PF 100 MCG/2 ML AMPUL IV ONE (12:08)
--- NOTE | 2017-10-19 12:11 | ER Document Report ---
ED General - General Chief Complaint: Abdominal Pain Stated Complaint: ABDOMINAL PAIN Time Seen by Provider: 10/19/17 11:03 Mode of Arrival: Ambulatory Information source: Patient Notes: 37-year-old female presents with complaints of nausea and vomiting diarrhea and abdominal pain. Patient denies any fevers or chills Patient notes vomiting just started today abdominal cramping is generalized no specific point tenderness TRAVEL OUTSIDE OF THE [place] IN LAST 30 DAYS: No - HPI Onset: Yesterday Onset/Duration: Sudden Quality of pain: Sharp Severity: Mild Pain Level: 1 Associated symptoms: Nausea, Vomiting Exacerbated by: Denies Relieved by: Denies Similar symptoms previously: No Recently seen / treated by doctor: No - Related Data Allergies/Adverse Reactions: meperidine HCl [From Demerol] Allergy (Severe, Verified 10/19/17 10:14) Anaphylaxis prednisone [Prednisone] Allergy (Severe, Verified 10/19/17 10:14) swell-up sulfamethoxazole [From Bactrim] Allergy (Verified 10/19/17 10:14) Hives trimethoprim [From Bactrim] Allergy (Verified 10/19/17 10:14) Hives morphine [Morphine] Adverse Reaction (Mild, Verified 10/19/17 10:14) Hives Past Medical History - Social History Smoking Status: Former Smoker Cigarette use (# per day): No Chew tobacco use (# tins/day): No Smoking Education Provided: No Frequency of alcohol use: None Drug Abuse: None Family History: Arthritis, DM, Hypertension, Malignancy Patient has suicidal ideation: No Patient has homicidal ideation: No - Past Medical History Cardiac Medical History: Reports: Hx Hypertension - depending on pain level Denies: Hx Coronary Artery Disease, Hx Heart Attack Pulmonary Medical History: Reports: Hx Asthma Denies: Hx Bronchitis, Hx COPD, Hx Pneumonia - Sarcoidosis lungs Neurological Medical History: Reports: Hx Migraine. Denies: Hx Cerebrovascular Accident, Hx Seizures Endocrine Medical History: Renal/ Medical History: Reports: Hx Ovarian Cysts. Denies: Hx Peritoneal Dialysis GI Medical History: Reports: Hx Gastritis, Hx Hiatal Hernia, Hx Ulcer - H pylori , sarcoidosis, fibromyalgia Musculoskeltal Medical History: Reports Hx Arthritis - osteo, Reports Hx Fibromyalgia Skin Medical History: Denies Hx MRSA Psychiatric Medical History: Reports: Hx Depression - & anxiety Past Surgical History: Reports: Hx Gynecologic Surgery - polyps, ovarian cysts, Hx Orthopedic Surgery - ganglion cyst, Hx Tubal Ligation - Immunizations Immunizations up to date: Yes Hx Diphtheria, Pertussis, Tetanus Vaccination: Yes - January 2015 Hx Pneumococcal Vaccination: 05/08/17 Review of Systems - Review of Systems Notes: REVIEW OF SYSTEMS: CONSTITUTIONAL : Denies fever, chills, or sweats. Denies recent illness. EENT: Denies eye, ear, throat, or mouth pain or symptoms. Denies nasal or sinus congestion or discharge. Denies throat, tongue, or mouth swelling or difficulty swallowing. CARDIOVASCULAR: Denies chest pain. Denies palpitations or racing or irregular heart beat. Denies ankle edema. RESPIRATORY: Denies cough, cold, or chest congestion. Denies shortness of breath, difficulty breathing, or wheezing. GASTROINTESTINAL: Admits to nausea vomiting diarrhea abdominal pain. GENITOURINARY: Denies difficulty urinating, painful urination, burning, frequency, blood in urine, or discharge. FEMALE GENITOURINARY: Denies vaginal bleeding, heavy or abnormal periods, irregular periods. Denies vaginal discharge or odor. MUSCULOSKELETAL: Denies back or neck pain or stiffness. Denies joint pain or swelling. SKIN: Denies rash, lesions or sores. HEMATOLOGIC : Denies easy bruising or bleeding. LYMPHATIC: Denies swollen, enlarged glands. NEUROLOGICAL: Denies confusion or altered mental status. Denies passing out or loss of consciousness. Denies dizziness or lightheadedness. Denies headache. Denies weakness or paralysis or loss of use of either side. Denies problems with gait or speech. Denies sensory loss, numbness, or tingling. Denies seizures. PSYCHIATRIC: Denies anxiety or stress. Denies depression, suicidal ideation, or homicidal ideation. ALL OTHER SYSTEMS REVIEWED AND NEGATIVE. PHYSICAL EXAMINATION: GENERAL: Well-appearing, well-nourished and in no acute distress. HEAD: Atraumatic, normocephalic. EYES: Pupils equal round and reactive to light, extraocular movements intact, conjunctiva are normal. ENT: Nares patent, oropharynx clear without exudates. Moist mucous membranes. NECK: Normal range of motion, supple without lymphadenopathy LUNGS: Breath sounds clear to auscultation bilaterally and equal. No wheezes rales or rhonchi. HEART: Regular rate and rhythm without murmurs ABDOMEN: Soft, nontender, nondistended abdomen. No guarding, no rebound. No masses appreciated. Female : deferred Musculoskeletal: Normal range of motion, no pitting or edema. No cyanosis. NEUROLOGICAL: Cranial nerves grossly intact. Normal speech, normal gait. Normal sensory, motor exams PSYCH: Normal mood, normal affect. SKIN: Warm, Dry, normal turgor, no rashes or lesions noted. Dictation was performed using [employer] voice recognition software Physical Exam - Vital signs Vitals: Temp Pulse Resp BP Pulse Ox 98.3 F 81 16 126/83 H 99 10/19/17 10:35 10/19/17 10:35 10/19/17 10:35 10/19/17 10:35 10/19/17 10:35 Course - Re-evaluation Re-evalutation: 10/19/17 12:10 Patient overall looks well did vomit once will treat with nausea control IV ultrasound guided based 10/19/17 16:45 Patient was given Haldol and Benadryl disc with Bentyl and is completely resolved her symptoms she feels much better wishes to be discharged patient was able to tolerate p.o. challenge, she is otherwise noted to have no acute abnormalities CT was negative patient is stable for discharge After performing a Medical Screening Examination, I estimate there is LOW risk for ACUTE APPENDICITIS, BOWEL OBSTRUCTION, ACUTE CHOLECYSTITIS, PERFORATED DIVERTICULITIS, INCARCERATED HERNIA, PANCREATITIS, PELVIC INFLAMMATORY DISEASE, PERFORATED ULCER, ECTOPIC , or TUBO-OVARIAN ABSCESS, thus I consider the discharge disposition reasonable. Also, there is no evidence or peritonitis , sepsis, or toxicity. I have reevaluated this patient multiple times and no significant life threatening changes are noted. The patient and I have discussed the diagnosis and risks, and we agree with discharging home with close follow-up with the understanding that symptoms and presentations can change. We also discussed returning to the Emergency Department immediately if new or worsening symptoms occur. We have discussed the symptoms which are most concerning (e.g., bloody stool, fever, changing or worsening pain, vomiting) that necessitate immediate return. - Vital Signs Vital signs: Temp Pulse Resp BP Pulse Ox 98.9 F 102 H 16 129/83 H 100 10/19/17 16:30 10/19/17 16:30 10/19/17 16:30 10/19/17 16:30 10/19/17 16:30 - Laboratory Result Diagrams: 10/19/17 12:26 03/14/18 13:46 Laboratory results interpreted by me: 10/19/17 10/19/17 10/19/17 12:26 13:46 14:50 MCV 78 L RDW 14.8 H Chloride 108 H Glucose 71 L Urine Ketones TRACE H - Diagnostic Test Radiology reviewed: Image reviewed - no acute abnormality , report given to patient, Reports reviewed Discharge - Discharge Clinical Impression: Nausea vomiting and diarrhea Abdominal pain Qualifiers: Abdominal location: generalized Qualified Code(s): R10.84 - Generalized abdominal pain Condition: Stable Disposition: HOME, SELF-CARE Instructions: Abdominal Pain ([facility]), Vomiting ([facility]) Additional Instructions: Follow up with your physician tomorrow for further care or return to the ED IMMEDIATELY if symptoms worsen or new concerns occur. If you cannot afford to follow up with your primary care physician a list of low cost clinics have been provided at the end of your discharge papers as well. Prescriptions: Dicyclomine HCl [Bentyl 20 mg Tablet] 20 mg PO QID #40 tablet Metoclopramide HCl [Reglan 10 mg Tablet] 1 - 2 tab PO ASDIR PRN #25 tablet PRN Reason:
[2017-10-19 12:42] LABS: ABSOLUTE BASOPHILS # (AUTO) 0.1 10^3/uL (0.0-0.2); ABSOLUTE EOSINOPHILS # (AUTO) 0.1 10^3/uL (0.0-0.6); ABSOLUTE LYMPHOCYTES (AUTO) 3.7 10^3/uL (0.5-4.7); ABSOLUTE MONOCYTES (AUTO) 0.3 10^3/uL (0.1-1.4); ABSOLUTE NEUT (AUTO) 4.4 10^3/uL (1.7-8.2); BASOPHILS % (AUTO) 1.1 % (0-2); EOSINOPHILS % (AUTO) 0.6 % (0-6); HEMATOCRIT 37.4 % (36.0-47.0); HEMOGLOBIN 13.1 g/dL (12.0-15.5); LYMPHOCYTES % (AUTO) 43.2 % (13-45); MEAN CORPUSCULAR HEMOGLOBIN 27.3 pg (27.0-33.4); MEAN CORPUSCULAR HGB CONC 34.9 g/dL (32.0-36.0); MEAN CORPUSCULAR VOLUME 78 fl (80-97); PLATELET COUNT 353 10^3/uL (150-450); RED BLOOD COUNT 4.78 10^6/uL (3.72-5.28); RED CELL DISTRIBUTION WIDTH 14.8 % (11.5-14.0); SEGMENTED NEUTROPHILS % (AUTO) 51.1 % (42-78); TOTAL CELLS COUNTED % (AUTO) 100 %; WHITE BLOOD COUNT 8.7 10^3/uL (4.0-10.5)
[2017-10-19] MEDS ORDERED: DICYCLOMINE HCL INJ 20 MG/2 ML AMPULE IM PRN (13:56)
[2017-10-19 14:16] LABS: ALANINE AMINOTRANSFERASE 24 U/L (9-52); ALBUMIN 3.9 g/dL (3.5-5.0); ALKALINE PHOSPHATASE 55 U/L (38-126); ANION GAP 12 (5-19); ASPARTATE AMINO TRANSFERASE 17 U/L (14-36); BILIRUBIN,DIRECT 0.4 mg/dL (0.0-0.4); BILIRUBIN,TOTAL 0.4 mg/dL (0.2-1.3); BLOOD UREA NITROGEN 8 mg/dL (7-20); CALCIUM 9.1 mg/dL (8.4-10.2); CARBON DIOXIDE 22 mmol/L (22-30); CHLORIDE 108 mmol/L (98-107); GLUCOSE 71 mg/dL (75-110); LIPASE 93.2 U/L (23-300); POTASSIUM 4.1 mmol/L (3.6-5.0); SODIUM 142.3 mmol/L (137-145)
[2017-10-19] MEDS ORDERED: DIPHENHYDRAMINE HCL 50 MG/ML VIAL IV ONE (14:23)
[2017-10-19] MEDS ORDERED: HALOPERIDOL LACTATE INJ 5 MG/1 ML VIAL IV ONE (14:23)
[2017-10-19 15:10] LABS: APPEARANCE,URINE SLIGHTLY-CLOUDY; BILIRUBIN,URINE NEGATIVE (NEGATIVE); COLOR,URINE YELLOW; GLUCOSE, URINE NEGATIVE (NEGATIVE); KETONES,URINE TRACE mg/dL (NEGATIVE); LEUKOCYTE ESTERASE,URINE NEGATIVE (NEGATIVE); NITRITE,URINE NEGATIVE (NEGATIVE); PROTEIN,URINE NEGATIVE (NEGATIVE); URINE SPECIFIC GRAVITY 1.023; UROBILINOGEN,URINE NEGATIVE mg/dL (<2.0)
--- NOTE | 2017-10-19 15:56 | RADIOLOGY REPORT (SQ) ---
EXAM DESCRIPTION: CT ABD/PELVIS NO ORAL OR IV COMPLETED DATE/TIME: 10/19/2017 3:47 pm REASON FOR STUDY: generalized abd pain COMPARISON: 05/14/2016. TECHNIQUE: CT scan of the abdomen and pelvis performed without intravenous or oral contrast. Images reviewed with lung, soft tissue, and bone windows. Reconstructed coronal and sagittal MPR images revi ewed. All images stored on PACS. All CT scanners at this facility use dose modulation, iterative reconstruction, and/or weight based d osing when appropriate to reduce radiation dose to as low as reasonably achievable (ALARA). [facility]: Dose Right [facility]: CareDose [facility]: Dose Right [facility]: Teradose 4D [facility]: Smart Netrepid RADIATION DOSE: CT Rad equipment meets quality standard of care and radiation dose reduction techniq ues were employed. CTDIvol: 15.6 mGy. DLP: 787 mGy-cm.mGy. LIMITATIONS: None. FINDINGS: LOWER CHEST: No significant findings. No nodules or infiltrates. NON-CONTRASTED LIVER, SPLEEN, ADRENALS: Evaluation limited by lack of IV contrast. No identified sign ificant masses. PANCREAS: No masses. No peripancreatic inflammatory changes. GALLBLADDER: No identified stones by CT criteria. No inflammatory changes to suggest cholecystitis. RIGHT KIDNEY AND URETER: No suspicious masses. Assessment limited by lack of IV contrast. No signif icant calcifications. No hydronephrosis or hydroureter. LEFT KIDNEY AND URETER: No suspicious masses. Assessment limited by lack of IV contrast. No signifi cant calcifications. No hydronephrosis or hydroureter. AORTA AND RETROPERITONEUM: No aneurysm. No retroperitoneal masses or adenopathy. BOWEL AND PERITONEAL CAVITY: No obvious masses or inflammatory changes. No free fluid. APPENDIX: Normal. PELVIS, BLADDER, AND ABDOMINAL WALL:No abnormal masses. No free fluid. Bladder normal. BONES: No significant findings. OTHER: No other significant finding. IMPRESSION: NO SIGNIFICANT OR ACUTE PROCESS IN THE ABDOMEN OR PELVIS. COMMENT: Quality ID # [id number]: Final reports with documentation of one or more dose reduction techniques (e.g., Automated exposure control, adjustment of the mA and/or kV according to patient size, use of iterative reconstruction technique) TECHNICAL DOCUMENTATION: JOB ID: [id number] [employer]- All Rights Reserved Reading location - IP/workstation name: [email or web address]
[2017-10-19 16:34] VITALS: BP 129/83
== END 2017-10-19 16:34 | disposition home or self-care (01) ==
LOC: ER 10:11
DX: R11.2 Nausea with vomiting, unspecified (principal); R19.7 Diarrhea, unspecified; R10.84 Generalized abdominal pain; Z87.891 Personal history of nicotine dependence
CPT/HCPCS: 99284; 96372; 96361; 96374; 96375; 36415; 83690; 84703; 85025; 81025; 80053; 81001; 74176; J0500; J1200; J3010; J1630; J2405; J7030

== ENCOUNTER 2017-11-01 12:39 | Day surgery (SDC) | payer MEDICAID ==
[~2017-11-01 12:39] MED LIST changes: +ALBUTEROL SULFATE 0.083% NEB 2.5 MG/3 ML AMPUL NEB PRN; +BACITRACIN INJ 50,000 UNIT VIAL ONE; +BUPIVACAINE HCL 0.25 % INJ/PF (2.5 MG/1 ML) 30 ML VIAL ONE; +DEXAMETHASONE SOD PHOSPHATE INJ 4 MG/1 ML VIAL ONE; +GLYCOPYRROLATE INJ 0.4 MG/2 ML VIAL ONE; +LIDOCAINE 0.5% INJ-PF (5 MG/ML) 50 ML SDV ONE; +LIDOCAINE 2% INJ-PF (20 MG/ML) 2 ML AMPUL ONE; +METOCLOPRAMIDE HCL INJ/PF 10 MG/2 ML SDV ONE; +ONDANSETRON HCL INJ/PF 4 MG/2 ML SDV ONE; +SCOPOLAMINE HYDROBROMIDE 1.5 MG PATCH.TD72 TD PRN; +SUCCINYLCHOLINE CHLORIDE INJ 200 MG/10 ML VIAL ONE
--- NOTE | 2017-11-01 13:59 | RADIOLOGY REPORT (SQ) ---
EXAM DESCRIPTION: CHEST SINGLE VIEW COMPLETED DATE/TIME: 11/01/2017 1:22 pm REASON FOR STUDY: PREOP COMPARISON: None. EXAM PARAMETERS: NUMBER OF VIEWS: One view. TECHNIQUE: Single frontal radiographic view of the chest acquired. RADIATION DOSE: NA LIMITATIONS: None. FINDINGS: LUNGS AND PLEURA: No opacities, masses or pneumothorax. No pleural effusion. MEDIASTINUM AND HILAR STRUCTURES: No masses. Contour normal. HEART AND VASCULAR STRUCTURES: Heart normal in size. Normal vasculature. BONES: No acute findings. HARDWARE: None in the chest. OTHER: No other significant finding. IMPRESSION: NO ACUTE RADIOGRAPHIC FINDING IN THE CHEST. TECHNICAL DOCUMENTATION: JOB ID: [id number] [employer]- All Rights Reserved Reading location - IP/workstation name: [email or web address]
[2017-11-01] MEDS ORDERED: MIDAZOLAM 2 MG/2 ML INJ ONE ×2 (14:10→14:28)
[2017-11-01] MEDS ORDERED: DEXMEDETOMIDINE INJ 80 MCG/20 ML VIAL IV ONE (14:28)
[2017-11-01] MEDS ORDERED: FENTANYL CITRATE INJ/PF 100 MCG/2 ML AMPUL ONE ×2 (14:28→16:43)
[2017-11-01] MEDS ORDERED: ACETAMINOPHEN 100 ML IV ONE (14:28)
[2017-11-01] MEDS ORDERED: PROPOFOL INJ 200 MG/20 ML VIAL IV ONE (14:28)
[2017-11-01] MEDS ORDERED: EPHEDRINE SULFATE INJ 50 MG/1 ML AMPULE ONE (14:28)
[2017-11-01] MEDS ORDERED: FENTANYL CITRATE INJ/PF 100 MCG/2 ML AMPUL IV PRN ×3 (15:56)
[2017-11-01] MEDS ORDERED: ONDANSETRON HCL INJ/PF 4 MG/2 ML SDV IV PRN (15:56)
[2017-11-01] MEDS ORDERED: PROMETHAZINE HCL INJ 25 MG/1 ML VIAL IV PRN ×2 (15:56)
[2017-11-01] MEDS ORDERED: DIPHENHYDRAMINE HCL 50 MG/ML VIAL IV PRN (15:56)
--- NOTE | 2017-11-01 16:51 | Discharge Summary ---
Discharge Summary (SDC) - Discharge Final Diagnosis: #1 hidradenitis of the left axilla, recurrent. 2. Sarcoidosis. 3. Insomnia. Date of Surgery: 11/01/17 Discharge Date: 11/01/17 Condition: Good Treatment or Instructions: Discharge home [after recovery per ASU criteria]. Diet , as tolerated, when fully awake advance as tolerated. Activities within moderation encouraged. Follow up in my office by appointment in about [1 week]. Call for appointment. To see EDWIN Junior. Leave wounds [covered], [keep clean and dry, until office visit in 1 week]. Meds per med rec. Percocet. Hold of on school/work [until evaluation in office]. May shower [in 48 hrs], [try to keep operated area as dry as possible]. Referrals: HECTOR BRYANT MD [Primary Care Provider] - Respiratory Treatments at Home: Deep Breathing/Coughing Discharge Activity: Activity As Tolerated Report the Following to Your Physician Immediately: Shortness of Breath, Unusual Bleeding
--- NOTE | 2017-11-01 16:54 | Operative Report ---
Operative Report DATE OF SURGERY: 11/01/17 PREOPERATIVE DIAGNOSIS: #1 hidradenitis of the left axilla, recurrent. 2. Sarcoidosis. 3. Insomnia. POSTOPERATIVE DIAGNOSIS: #1 hidradenitis of the left axilla, recurrent. 2. Sarcoidosis. 3. Insomnia. OPERATION: Excision of hidradenitis of the left axilla. SURGEON: JAMES CEE TECHNOLOGY OFFICER: None ANESTHESIA: GA TISSUE REMOVED OR ALTERED: Hairbearing skin of the left axilla. COMPLICATIONS: None. ESTIMATED BLOOD LOSS: 20 mL. INTRAOPERATIVE FINDINGS: Of scars abscesses in various stages of healing and the remaining here bearing area of the left axilla. Completely excised with healthy remaining tissues. PROCEDURE: The patient was taken to the operating room and positioned supine. She was anesthetized and intubated. The left axilla and upper extremity were prepared with chlorhexidine and draped out with sterile linen. The arm was positioned at approximately 90 to the patient. Free draped. A roll placed beneath the shoulder to keep the axilla off the bed. After the universal timeout, in which it was verified that the patient received IV antibiotic, consideration given to adding adding Flagyl, for anaerobic coverage, and that the correct site was being operated on, the procedure commenced. The involved right axillary skin was noted and marked. This was somewhat elliptical so as to include all of the involved skin. Local anesthesia was infiltrated in the skin and subcutaneous tissues around and beneath the involved area. The incision now commenced at the inferior aspect so as to incise the skin border in a V-shaped. This was now grasped with a Penny clamp. The Penny clamp was placed on traction and dissection proceeded piecemeal on either side and beneath the skin flaps. In this way the diseased tissue was excised with a minimum of blood loss. It was submitted for pathology. The specimen was handed off the field and the gloves were changed, the wound irrigated. This is in an effort to avoid contaminating the fresh wound. Hemostasis was now secured using electrocautery. Once this was done skin approximation was done. Tension-free closure with a T-incision was done. . The wound was now closed. First interrupted 2-0 Prolene sutures were placed about 2-1/2 cm away from the skin edge, and situated about 2-1/2 cm apart. These were left untied for the time being. Closure was now done using interrupted 3-0 PDS sutures used to approximate the subcutaneous tissues beneath and across incision. The rotation done to get tissue into the defect. This was done and approximated in a cosmetic fashion. The skin was now closed using a continuous subcutaneous suture of 4-0 Monocryl which was reinforced with Steri-Strips over benzoin. Folded fluffy dressings and ABDs were now placed over the incision and tied in place using the previously placed 2-0 Prolene sutures and the procedure concluded. Consideration given to giving Toradol for optimal pain relief.
--- NOTE | 2017-11-01 17:22 | EKG REPORT ---
SEVERITY:- OTHERWISE NORMAL ECG - SINUS ARRHYTHMIA, RATE 67-90 : Confirmed by: Portillo Long MD 01-Nov-2017 17:21:27
[2017-11-01 18:27] VITALS: BP 134/90
== END 2017-11-01 18:20 | disposition home or self-care (01) ==
LOC: OROUT 12:39
PROVIDERS: ATTEND Surgery
DX: L73.2 Hidradenitis suppurativa (principal); D86.9 Sarcoidosis, unspecified; G47.00 Insomnia, unspecified; I49.9 Cardiac arrhythmia, unspecified; M79.7 Fibromyalgia; M19.90 Unspecified osteoarthritis, unspecified site; Z88.5 Allergy status to narcotic agent; Z88.2 Allergy status to sulfonamides; Z87.891 Personal history of nicotine dependence; Z79.899 Other long term (current) drug therapy; Z79.51 Long term (current) use of inhaled steroids; Z79.891 Long term (current) use of opiate analgesic; J44.9 Chronic obstructive pulmonary disease, unspecified
CPT/HCPCS: 81025; 88304 ×2; 71045; 93005; 93010; 11450; J2250; J3490 ×6; J0690; J1100; J3010; J2765; J0330; J2405; S0020; J2704; J0131; 400

== ENCOUNTER → 2017-12-01 | Outpatient (CLI) | payer MEDICAID ==
--- NOTE | 2017-12-01 11:03 | RADIOLOGY REPORT (SQ) ---
EXAM DESCRIPTION: CHEST PA/LATERAL COMPLETED DATE/TIME: 12/01/2017 10:55 am REASON FOR STUDY: COUGH COMPARISON: 11/01/2017 EXAM PARAMETERS: NUMBER OF VIEWS: two views TECHNIQUE: Digital Frontal and Lateral radiographic views of the chest acquired. RADIATION DOSE: NA LIMITATIONS: none FINDINGS: LUNGS AND PLEURA: No opacities, masses or pneumothorax. No pleural effusion. MEDIASTINUM AND HILAR STRUCTURES: No masses or contour abnormalities. HEART AND VASCULAR STRUCTURES: Heart normal size. No evidence for failure. BONES: No acute findings. HARDWARE: None in the chest. OTHER: No other significant finding. IMPRESSION: NO SIGNIFICANT RADIOGRAPHIC FINDING IN THE CHEST. TECHNICAL DOCUMENTATION: JOB ID: [id number] [employer]- All Rights Reserved Reading location - IP/workstation name: [email or web address]
[2017-12-01 11:36] LABS: ABSOLUTE EOSINOPHILS # (AUTO) 0.1 10^3/uL (0.0-0.6); ABSOLUTE LYMPHOCYTES (AUTO) 2.8 10^3/uL (0.5-4.7); ABSOLUTE MONOCYTES (AUTO) 0.3 10^3/uL (0.1-1.4); ABSOLUTE NEUT (AUTO) 2.4 10^3/uL (1.7-8.2); BASOPHILS % (AUTO) 0.4 % (0-2); HEMOGLOBIN 12.3 g/dL (12.0-15.5); LYMPHOCYTES % (AUTO) 50.3 % (13-45); MEAN CORPUSCULAR HGB CONC 34.1 g/dL (32.0-36.0); MEAN CORPUSCULAR VOLUME 79 fl (80-97); MONOCYTES % (AUTO) 4.8 % (3-13); PLATELET COUNT 322 10^3/uL (150-450); RED BLOOD COUNT 4.54 10^6/uL (3.72-5.28); RED CELL DISTRIBUTION WIDTH 15.1 % (11.5-14.0); SEGMENTED NEUTROPHILS % (AUTO) 43.5 % (42-78); TOTAL CELLS COUNTED % (AUTO) 100 %; WHITE BLOOD COUNT 5.5 10^3/uL (4.0-10.5)
== END ==
LOC: OD 10:31
PROVIDERS: ATTEND Internal Medicine Pulmonary Disease
DX: R05 Cough (principal)
CPT/HCPCS: 36415; 71046; 85025; 87070; 87205

== ENCOUNTER 2018-02-05 09:50 | Emergency (ER) | payer MEDICAID ==
--- NOTE | 2018-02-05 10:22 | ER Document Report ---
ED Medical Screen (RME) - General Chief Complaint: Black/Tarry Stools Stated Complaint: STOMACH PAIN Time Seen by Provider: 02/05/18 10:16 Mode of Arrival: Ambulatory Information source: Patient Notes: 37 yr old female presents with generalized abd pain with dark stools that started this morning x2. denies any recent pepto or iron intake I have greeted and performed a rapid initial assessment of this patient. A comprehensive ED assessment and evaluation of the patient, analysis of test results and completion of the medical decision making process will be conducted by additional ED providers. PHYSICAL EXAMINATION: GENERAL: Well-appearing, well-nourished and in no acute distress. HEAD: Atraumatic, normocephalic. EYES: Pupils equal round extraocular movements intact, conjunctiva are normal. ENT: Nares patent NECK: Normal range of motion LUNGS: No respiratory distress Musculoskeletal: Normal range of motion NEUROLOGICAL: Normal speech, normal gait. PSYCH: Normal mood, normal affect. SKIN: Warm, Dry, normal turgor, no rashes or lesions noted. TRAVEL OUTSIDE OF THE [place] IN LAST 30 DAYS: No - Related Data Allergies/Adverse Reactions: meperidine HCl [From Demerol] Allergy (Severe, Verified 02/05/18 10:05) Anaphylaxis prednisone [Prednisone] Allergy (Severe, Verified 02/05/18 10:05) swell-up sulfamethoxazole [From Bactrim] Allergy (Severe, Verified 02/05/18 10:05) Hives trimethoprim [From Bactrim] Allergy (Severe, Verified 02/05/18 10:05) Hives morphine [Morphine] Adverse Reaction (Mild, Verified 02/05/18 10:05) Hives Past Medical History - Social History Chew tobacco use (# tins/day): No Frequency of alcohol use: None Drug Abuse: None - Past Medical History Cardiac Medical History: Reports: Hx Hypertension - depending on pain level Denies: Hx Coronary Artery Disease, Hx Heart Attack Pulmonary Medical History: Reports: Hx Asthma, Hx Pneumonia - Sarcoidosis lungs Denies: Hx Bronchitis, Hx COPD Neurological Medical History: Reports: Hx Migraine. Denies: Hx Cerebrovascular Accident, Hx Seizures Endocrine Medical History: Renal/ Medical History: Reports: Hx Ovarian Cysts. Denies: Hx Peritoneal Dialysis GI Medical History: Reports: Hx Gastritis, Hx Hiatal Hernia, Hx Ulcer - H pylori , sarcoidosis, fibromyalgia Musculoskeltal Medical History: Reports Hx Arthritis - osteo, Reports Hx Fibromyalgia Skin Medical History: Denies Hx MRSA Psychiatric Medical History: Reports: Hx Depression - & anxiety Past Surgical History: Reports: Hx Gynecologic Surgery - polyps, ovarian cysts, Hx Orthopedic Surgery - ganglion cyst, Hx Tubal Ligation - Immunizations Immunizations up to date: Yes Hx Diphtheria, Pertussis, Tetanus Vaccination: Yes - January 2015 History of Influenza Vaccine for 05/2017 - 10/2017 Season: Yes Influenza Administration Date for 05/2017 - 10/2017 Season: 06/08/17 Physical Exam - Vital signs Vitals: Temp Pulse Resp BP Pulse Ox 98.9 F 97 16 125/76 98 02/05/18 09:55 02/05/18 09:55 02/05/18 09:55 02/05/18 09:55 02/05/18 09:55 Course - Vital Signs Vital signs: Temp Pulse Resp BP Pulse Ox 98.9 F 97 16 125/76 98 02/05/18 09:55 02/05/18 09:55 02/05/18 09:55 02/05/18 09:55 02/05/18 09:55 Doctor's Discharge - Discharge Referrals: ALE WANG MD [Primary Care Provider] - Follow up as needed
[2018-02-05 10:35] LABS: ABSOLUTE BASOPHILS # (AUTO) 0.1 10^3/uL (0.0-0.2); ABSOLUTE LYMPHOCYTES (AUTO) 2.6 10^3/uL (0.5-4.7); ABSOLUTE MONOCYTES (AUTO) 0.1 10^3/uL (0.1-1.4); ABSOLUTE NEUT (AUTO) 2.4 10^3/uL (1.7-8.2); BASOPHILS % (AUTO) 1.1 % (0-2); EOSINOPHILS % (AUTO) 0.9 % (0-6); HEMOGLOBIN 12.7 g/dL (12.0-15.5); LYMPHOCYTES % (AUTO) 49.5 % (13-45); MEAN CORPUSCULAR HEMOGLOBIN 27.9 pg (27.0-33.4); MEAN CORPUSCULAR HGB CONC 35.3 g/dL (32.0-36.0); MEAN CORPUSCULAR VOLUME 79 fl (80-97); MONOCYTES % (AUTO) 2.4 % (3-13); PLATELET COUNT 338 10^3/uL (150-450); RED BLOOD COUNT 4.56 10^6/uL (3.72-5.28); RED CELL DISTRIBUTION WIDTH 15.3 % (11.5-14.0); SEGMENTED NEUTROPHILS % (AUTO) 46.1 % (42-78); TOTAL CELLS COUNTED % (AUTO) 100 %; WHITE BLOOD COUNT 5.2 10^3/uL (4.0-10.5)
[2018-02-05] MEDS ORDERED: ONDANSETRON 4 MG TAB.RAPDIS PO ONE (10:52)
[2018-02-05] MEDS ORDERED: DICYCLOMINE HCL 20 MG TABLET PO ONE (10:52)
[2018-02-05 10:54] LABS: ALANINE AMINOTRANSFERASE 16 U/L (9-52); ALBUMIN 4.4 g/dL (3.5-5.0); ALKALINE PHOSPHATASE 47 U/L (38-126); ANION GAP 8 (5-19); ASPARTATE AMINO TRANSFERASE 23 U/L (14-36); BILIRUBIN,DIRECT 0.3 mg/dL (0.0-0.4); BILIRUBIN,TOTAL 0.4 mg/dL (0.2-1.3); BLOOD UREA NITROGEN 7 mg/dL (7-20); CALCIUM 9.4 mg/dL (8.4-10.2); CARBON DIOXIDE 28 mmol/L (22-30); CHLORIDE 107 mmol/L (98-107); GLUCOSE 96 mg/dL (75-110); LIPASE 55.4 U/L (23-300); POTASSIUM 3.9 mmol/L (3.6-5.0); SODIUM 143.4 mmol/L (137-145); TOTAL PROTEIN 7.7 g/dL (6.3-8.2)
[2018-02-05] MEDS ORDERED: NORMAL SALINE 1000 ML 1,000 ML IV ONE (10:54)
--- NOTE | 2018-02-05 10:56 | ER Document Report ---
ED GI Bleed / Rectal Pain - General Chief Complaint: Black/Tarry Stools Stated Complaint: STOMACH PAIN Time Seen by Provider: 02/05/18 10:16 Mode of Arrival: Ambulatory Information source: Patient Notes: Patient presents with a 3 day history of abdominal pain to the lower abdomen with diarrhea. Patient states she has had dark colored stools that appeared black for the past 2 days. Patient complains of nausea but denies any vomiting. Patient denies any fever or urinary symptoms. Patient denies any vaginal bleeding or discharge. TRAVEL OUTSIDE OF THE [place] IN LAST 30 DAYS: No - HPI Patient complains to provider of: Dark/tarry stools Onset: Other - 3 days Timing/Duration: Persistent Quality of pain: Achy, Cramping Pain Level: 4 Dark Stools: Black Rectal foreign body: No Use of: denies: Warfarin, Plavix, NSAIDS Associated symptoms: Abdominal pain. denies: Back pain, Bruising/bleeding gums , Chest pain, Sweaty Exacerbated by: Denies Relieved by: Denies Similar symptoms previously: Yes Recently seen / treated by doctor: No - Related Data Allergies/Adverse Reactions: meperidine HCl [From Demerol] Allergy (Severe, Verified 02/05/18 10:05) Anaphylaxis prednisone [Prednisone] Allergy (Severe, Verified 02/05/18 10:05) swell-up sulfamethoxazole [From Bactrim] Allergy (Severe, Verified 02/05/18 10:05) Hives trimethoprim [From Bactrim] Allergy (Severe, Verified 02/05/18 10:05) Hives morphine [Morphine] Adverse Reaction (Mild, Verified 02/05/18 10:05) Hives Past Medical History - General Information source: Patient - Social History Smoking Status: Never Smoker Chew tobacco use (# tins/day): No Frequency of alcohol use: None Drug Abuse: None Occupation: none Family History: Arthritis, DM, Hypertension, Malignancy Patient has suicidal ideation: No Patient has homicidal ideation: No - Past Medical History Cardiac Medical History: Reports: Hx Hypertension - depending on pain level Denies: Hx Coronary Artery Disease, Hx Heart Attack Pulmonary Medical History: Reports: Hx Asthma, Hx Pneumonia - Sarcoidosis lungs Denies: Hx Bronchitis, Hx COPD Neurological Medical History: Reports: Hx Migraine. Denies: Hx Cerebrovascular Accident, Hx Seizures Endocrine Medical History: Renal/ Medical History: Reports: Hx Ovarian Cysts. Denies: Hx Peritoneal Dialysis GI Medical History: Reports: Hx Gastritis, Hx Hiatal Hernia, Hx Ulcer - H pylori , sarcoidosis, fibromyalgia Musculoskeltal Medical History: Reports Hx Arthritis - osteo, Reports Hx Fibromyalgia Skin Medical History: Denies Hx MRSA Psychiatric Medical History: Reports: Hx Depression - & anxiety Past Surgical History: Reports: Hx Gynecologic Surgery - polyps, ovarian cysts, Hx Orthopedic Surgery - ganglion cyst, Hx Tubal Ligation - Immunizations Immunizations up to date: Yes Hx Diphtheria, Pertussis, Tetanus Vaccination: Yes - January 2015 Hx Pneumococcal Vaccination: 05/08/17 Review of Systems - Review of Systems Constitutional: No symptoms reported. denies: Fever EENT: No symptoms reported Cardiovascular: Lightheaded. denies: Chest pain, Syncope, Dizziness Respiratory: No symptoms reported. denies: Cough, Short of breath Gastrointestinal: Abdominal pain, Diarrhea, Nausea, Black stools. denies: Vomiting, Poor appetite Genitourinary: No symptoms reported. denies: Dysuria, Flank pain, Hematuria Female Genitourinary: No symptoms reported. denies: , Vaginal discharge , Vaginal bleeding Musculoskeletal: No symptoms reported. denies: Back pain Skin: No symptoms reported Hematologic/Lymphatic: No symptoms reported Neurological/Psychological: No symptoms reported. denies: Headaches Physical Exam - Vital signs Vitals: Temp Pulse Resp BP Pulse Ox 98.9 F 97 16 125/76 98 02/05/18 09:55 02/05/18 09:55 02/05/18 09:55 02/05/18 09:55 02/05/18 09:55 - General General appearance: Appears well, Alert In distress: None - HEENT Head: Normocephalic, Atraumatic Eyes: Normal Conjunctiva: Normal Nasal: Normal Mouth/Lips: Normal Mucous membranes: Normal Pharynx: Normal Neck: Normal, Supple. No: Lymphadenopathy - Respiratory Respiratory status: No respiratory distress Chest status: Nontender Breath sounds: Normal. No: Rales, Rhonchi, Stridor, Wheezing Chest palpation: Normal - Cardiovascular Rhythm: Regular Heart sounds: S1 appreciated, S2 appreciated Murmur: No - Abdominal Inspection: Obese Distension: No distension Bowel sounds: Normal Tenderness: Tender - Generalized abdominal tenderness Organomegaly: No organomegaly - Rectal Tenderness: Yes - External hemorrhoid Stool: See lab result Hemorrhoids: External Notes: ROSEMARIE Atkins as standby - Back Back: Tender - Left lumbar paraspinal tenderness. No: Vertebra tenderness - Extremities General upper extremity: Normal inspection, Normal ROM General lower extremity: Normal inspection, Normal ROM - Neurological Neuro grossly intact: Yes Cognition: Normal Institute Coma Scale Eye Opening: Spontaneous Clarisa Coma Scale Verbal: Oriented Clarisa Coma Scale Motor: Obeys Commands Clarisa Coma Scale Total: 15 - Psychological Associated symptoms: Normal affect, Normal mood - Skin Skin Temperature: Warm Skin Moisture: Dry Skin Color: Normal Course - Re-evaluation Re-evalutation: 02/05/18 12:21 Patient reports nausea is improved. No vomiting while here, no additional diarrhea. Patient states abdominal tenderness is improving as well. Patient awaiting IV fluids to infuse and then will plan for discharge. 02/05/18 12:38 Abdomen soft, nontender. Patient nontoxic in appearance. Will treat symptomatically. Patient encouraged to follow-up with her GI doctor for any persistent problems. Patient presents with abdominal pain without signs of peritonitis or other life-threatening or serious etiology. Patient appears stable for discharge and has been instructed to return immediately if the symptoms worsen in any way, or in 8-12 hours if not improved for reevaluation. The patient has been instructed to return if the symptoms worsen or change in any way. - Vital Signs Vital signs: Temp Pulse Resp BP Pulse Ox 98.6 F 68 18 116/72 100 02/05/18 13:04 02/05/18 13:04 02/05/18 13:04 02/05/18 13:04 02/05/18 13:04 - Laboratory Result Diagrams: 02/05/18 10:21 02/05/18 10:21 Laboratory results interpreted by me: 02/05/18 02/05/18 10:21 11:42 MCV 79 L RDW 15.3 H Lymphocytes % 49.5 H Monocytes % 2.4 L Urine Blood SMALL H 02/05/18 12:39 Labs- Entire Visit 02/05/18 02/05/18 02/05/18 10:21 10:21 10:21 WBC 5.2 RBC 4.56 Hgb 12.7 Hct 36.0 MCV 79 L MCH 27.9 MCHC 35.3 RDW 15.3 H Plt Count 338 Seg Neutrophils % 46.1 Lymphocytes % 49.5 H Monocytes % 2.4 L Eosinophils % 0.9 Basophils % 1.1 Absolute Neutrophils 2.4 Absolute Lymphocytes 2.6 Absolute Monocytes 0.1 Absolute Eosinophils 0.0 Absolute Basophils 0.1 Sodium 143.4 Potassium 3.9 Chloride 107 Carbon Dioxide 28 Anion Gap 8 BUN 7 Creatinine 0.72 Est GFR ( Amer) > 60 Est GFR (Non-Af Amer) > 60 Glucose 96 Calcium 9.4 Total Bilirubin 0.4 Direct Bilirubin 0.3 Neonat Total Bilirubin Not Reportable Neonat Direct Bilirubin Not Reportable Neonat Indirect Bili Not Reportable AST 23 ALT 16 Alkaline Phosphatase 47 Total Protein 7.7 Albumin 4.4 Lipase 55.4 Serum HCG, Qual NEGATIVE Urine Color Urine Appearance Urine pH Ur Specific [place] Urine Protein Urine Glucose (UA) Urine Ketones Urine Blood Urine Nitrite Urine Bilirubin Urine Urobilinogen Ur Leukocyte Esterase Urine WBC (Auto) Urine RBC (Auto) Squamous Epi Cells Auto Urine Mucus (Auto) Urine Ascorbic Acid Stool Occult Blood 02/05/18 02/05/18 10:35 11:42 WBC RBC Hgb Hct MCV MCH MCHC RDW Plt Count Seg Neutrophils % Lymphocytes % Monocytes % Eosinophils % Basophils % Absolute Neutrophils Absolute Lymphocytes Absolute Monocytes Absolute Eosinophils Absolute Basophils Sodium Potassium Chloride Carbon Dioxide Anion Gap BUN Creatinine Est GFR ( Amer) Est GFR (Non-Af Amer) Glucose Calcium Total Bilirubin Direct Bilirubin Neonat Total Bilirubin Neonat Direct Bilirubin Neonat Indirect Bili AST ALT Alkaline Phosphatase Total Protein Albumin Lipase Serum HCG, Qual Urine Color YELLOW Urine Appearance CLEAR Urine pH 6.0 Ur Specific [place] 1.005 Urine Protein NEGATIVE Urine Glucose (UA) NEGATIVE Urine Ketones NEGATIVE Urine Blood SMALL H Urine Nitrite NEGATIVE Urine Bilirubin NEGATIVE Urine Urobilinogen NEGATIVE Ur Leukocyte Esterase NEGATIVE Urine WBC (Auto) 1 Urine RBC (Auto) 1 Squamous Epi Cells Auto 1 Urine Mucus (Auto) RARE Urine Ascorbic Acid NEGATIVE Stool Occult Blood NEGATIVE Discharge - Discharge Clinical Impression: Nausea Abdominal pain Qualifiers: Abdominal location: unspecified location Qualified Code(s): R10.9 - Unspecified abdominal pain Diarrhea Qualifiers: Diarrhea type: unspecified type Qualified Code(s): R19.7 - Diarrhea, unspecified Condition: Stable Disposition: HOME, SELF-CARE Instructions: Abdominal Pain ([facility]), Antinausea Medication ([facility]), Antispasmodics ([facility]) Additional Instructions: Return immediately for any new or worsening symptoms Followup with your primary care provider, call tomorrow to make a followup appointment Follow-up with a medical imaging specialist for recheck Prescriptions: Dicyclomine HCl [Bentyl 20 mg Tablet] 20 mg PO QID #15 tablet Ondansetron HCl [Zofran 4 mg Tablet] 1 - 2 tab PO Q6 PRN #15 tablet PRN Reason: Forms: Return to Work Referrals: ALE WANG MD [Primary Care Provider] - Follow up as needed HECTOR BRYANT MD [ACTIVE STAFF] - Follow up as needed USMAN HARRIS MD [ACTIVE STAFF] - Follow up in 3-5 days
[2018-02-05 12:01] LABS: APPEARANCE,URINE CLEAR; BILIRUBIN,URINE NEGATIVE (NEGATIVE); COLOR,URINE YELLOW; GLUCOSE, URINE NEGATIVE (NEGATIVE); KETONES,URINE NEGATIVE (NEGATIVE); LEUKOCYTE ESTERASE,URINE NEGATIVE (NEGATIVE); NITRITE,URINE NEGATIVE (NEGATIVE); PROTEIN,URINE NEGATIVE (NEGATIVE); URINE SPECIFIC GRAVITY 1.005; UROBILINOGEN,URINE NEGATIVE mg/dL (<2.0)
[2018-02-05 13:14] VITALS: BP 116/72
== END 2018-02-05 13:11 | disposition home or self-care (01) ==
LOC: ER 09:50
DX: R10.9 Unspecified abdominal pain (principal); R11.0 Nausea; R19.7 Diarrhea, unspecified; R10.30 Lower abdominal pain, unspecified; R19.5 Other fecal abnormalities; I10 Essential (primary) hypertension; J45.909 Unspecified asthma, uncomplicated
CPT/HCPCS: 99284; 96360; 36415; 83690; 84703; 85025; 82272; 80053; 81001; J3490; S0119; J7030

== ENCOUNTER 2018-02-15 09:39 | Observation (INO) | payer MEDICAID ==
[2018-02-15] MEDS ORDERED: MORPHINE SULFATE 10 MG/ML INJ IV ONE (09:58)
[2018-02-15] MEDS ORDERED: NORMAL SALINE 1000 ML 1,000 ML IV ONE (09:58)
--- NOTE | 2018-02-15 09:58 | ER Document Report ---
ED General - General Chief Complaint: Rectal Pain Stated Complaint: RECTAL PAIN Time Seen by Provider: 02/15/18 09:55 TRAVEL OUTSIDE OF THE [place] IN LAST 30 DAYS: No - HPI Notes: 05/17 rectal pain burning in nature without radiation nothing is made it better or worse. Started about 2 days ago. Patient has a history of perirectal abscesses that have required drainage in the operating room. Patient thinks she has another one. Patient states she had a fever the other day unbearable. Patient denies nausea vomiting or other constitutional symptoms. - Related Data Allergies/Adverse Reactions: meperidine HCl [From Demerol] Allergy (Severe, Verified 02/15/18 09:40) Anaphylaxis prednisone [Prednisone] Allergy (Severe, Verified 02/15/18 09:40) swell-up sulfamethoxazole [From Bactrim] Allergy (Severe, Verified 02/15/18 09:40) Hives trimethoprim [From Bactrim] Allergy (Severe, Verified 02/15/18 09:40) Hives morphine [Morphine] Adverse Reaction (Mild, Verified 02/15/18 09:40) Hives Past Medical History - Social History Smoking Status: Unknown if Ever Smoked Family History: Arthritis, DM, Hypertension, Malignancy - Past Medical History Cardiac Medical History: Reports: Hx Hypertension - depending on pain level Denies: Hx Coronary Artery Disease, Hx Heart Attack Pulmonary Medical History: Reports: Hx Asthma, Hx Pneumonia - Sarcoidosis lungs Denies: Hx Bronchitis, Hx COPD Neurological Medical History: Reports: Hx Migraine. Denies: Hx Cerebrovascular Accident, Hx Seizures Endocrine Medical History: Renal/ Medical History: Reports: Hx Ovarian Cysts. Denies: Hx Peritoneal Dialysis GI Medical History: Reports: Hx Gastritis, Hx Hiatal Hernia, Hx Ulcer - H pylori , sarcoidosis, fibromyalgia Musculoskeltal Medical History: Reports Hx Arthritis - osteo, Reports Hx Fibromyalgia Skin Medical History: Denies Hx MRSA Psychiatric Medical History: Reports: Hx Depression - & anxiety Past Surgical History: Reports: Hx Gynecologic Surgery - polyps, ovarian cysts, Hx Orthopedic Surgery - ganglion cyst, Hx Tubal Ligation - Immunizations Immunizations up to date: Yes Hx Diphtheria, Pertussis, Tetanus Vaccination: Yes - January 2015 Hx Pneumococcal Vaccination: 05/08/17 Review of Systems - Review of Systems Notes: REVIEW OF SYSTEMS: CONSTITUTIONAL: -fevers, -chills EENT: -eye pain, -difficulty swallowing, -nasal congestion CARDIOVASCULAR: -chest pain, -syncope. RESPIRATORY: -cough, -SOB GASTROINTESTINAL: -abdominal pain, -nausea, -vomiting, -diarrhea GENITOURINARY: -dysuria, -hematuria MUSCULOSKELETAL: -back pain, -neck pain SKIN: -rash or skin lesions. HEMATOLOGIC: -easy bruising or bleeding. LYMPHATIC: -swollen, enlarged glands. NEUROLOGICAL: -altered mental status or loss of consciousness, -headache, - neurologic symptoms PSYCHIATRIC: -anxiety, -depression. ALL OTHER SYSTEMS REVIEWED AND NEGATIVE. Physical Exam - Vital signs Vitals: Temp Pulse Resp BP Pulse Ox 98.1 F 56 L 16 125/80 100 02/15/18 09:45 02/15/18 09:45 02/15/18 09:45 02/15/18 09:45 02/15/18 09:45 - Notes Notes: PHYSICAL EXAMINATION: GENERAL: Well-appearing, well-nourished and in no acute distress. HEAD: Atraumatic, normocephalic. EYES: Pupils equal round and reactive to light, extraocular movements intact, sclera anicteric, conjunctiva are normal. ENT: nares patent, oropharynx clear without exudates. Moist mucous membranes. NECK: Normal range of motion, supple without lymphadenopathy LUNGS: Breath sounds clear to auscultation bilaterally and equal. No wheezes rales or rhonchi. HEART: Regular rate and rhythm without murmurs ABDOMEN: Soft, nontender, normoactive bowel sounds. No guarding, no rebound. No masses appreciated. RECTAL" large abscess loaded left anterior aspect of her rectum. Patient does not tolerate rectal exam EXTREMITIES: Normal range of motion, no pitting or edema. No cyanosis. NEUROLOGICAL: Cranial nerves grossly intact. Normal speech, normal gait. Normal sensory and motor exams. PSYCH: Normal mood, normal affect. SKIN: Warm, Dry, normal turgor, no rashes or lesions noted. Course - Re-evaluation Re-evalutation: 02/15/18 15:59 Unfortunate female presents with perirectal abscess. Has history of being the past. Unable to tolerate my digital rectal exam. Patient requiring multiple doses of IV opioid pain medicine. Patient's extensive lab workup relatively unremarkable. Patient will require admission to the hospital for surgical incision and drainage of her perirectal abscess. - Vital Signs Vital signs: Temp Pulse Resp BP Pulse Ox 98.1 F 56 L 16 125/80 100 02/15/18 09:45 02/15/18 09:45 02/15/18 09:45 02/15/18 09:45 02/15/18 09:45 - Laboratory Result Diagrams: 02/15/18 12:08 02/15/18 12:08 Discharge - Discharge Clinical Impression: Rectal abscess Condition: Stable Disposition: ADMITTED INPATIENT Admitting Provider: Surgicalist - Dr. Saul Unit Admitted: Surgical Floor
[2018-02-15] MEDS ORDERED: FENTANYL CITRATE INJ/PF 100 MCG/2 ML AMPUL IV ONE ×2 (10:20→11:35)
[2018-02-15 12:30] LABS: ABSOLUTE BASOPHILS # (AUTO) 0.1 10^3/uL (0.0-0.2); ABSOLUTE LYMPHOCYTES (AUTO) 2.7 10^3/uL (0.5-4.7); ABSOLUTE MONOCYTES (AUTO) 0.3 10^3/uL (0.1-1.4); BASOPHILS % (AUTO) 1.1 % (0-2); EOSINOPHILS % (AUTO) 0.3 % (0-6); HEMATOCRIT 33.9 % (36.0-47.0); LYMPHOCYTES % (AUTO) 38.6 % (13-45); MEAN CORPUSCULAR HEMOGLOBIN 27.8 pg (27.0-33.4); MEAN CORPUSCULAR HGB CONC 35.3 g/dL (32.0-36.0); MEAN CORPUSCULAR VOLUME 79 fl (80-97); MONOCYTES % (AUTO) 4.5 % (3-13); PLATELET COUNT 325 10^3/uL (150-450); RED BLOOD COUNT 4.31 10^6/uL (3.72-5.28); RED CELL DISTRIBUTION WIDTH 15.3 % (11.5-14.0); SEGMENTED NEUTROPHILS % (AUTO) 55.5 % (42-78); TOTAL CELLS COUNTED % (AUTO) 100 %; WHITE BLOOD COUNT 7.1 10^3/uL (4.0-10.5)
[2018-02-15 12:50] LABS: ANION GAP 11 (5-19); BLOOD UREA NITROGEN 8 mg/dL (7-20); CARBON DIOXIDE 23 mmol/L (22-30); CHLORIDE 107 mmol/L (98-107); GLUCOSE 87 mg/dL (75-110); POTASSIUM 4.2 mmol/L (3.6-5.0); SODIUM 141.4 mmol/L (137-145)
[2018-02-15] MEDS ORDERED: CIPROFLOXACIN 400 MG/D5W RTU 400 MG/200 ML RTUPB IV ONE (13:00)
[2018-02-15] MEDS: NORMAL SALINE 1000 ML 1,000 ML IV PRN ×2 (13:31→22:00)
--- NOTE | 2018-02-15 14:05 | PDOC H&P ---
History of Present Illness Admission Date/PCP: 02/15/18 11:30 HECTOR BRYANT Patient complains of: severe right alexis-rectal pains History of Present Illness: JASMEET FERRO is a 37 year old female who had history of previous I&D of laexis-rectal abscesses in the past. Has been c/o roght alexis-rectal pains past 2 days. This is noted to be getting worse. Had fever day before yesterday. Past Medical History Cardiac Medical History: Reports: Hypertension - depending on pain level Denies: Coronary Artery Disease, Myocardial Infarction Pulmonary Medical History: Reports: Asthma, Pneumonia - Sarcoidosis lungs Denies: Bronchitis, Chronic Obstructive Pulmonary Disease (COPD) Neurological Medical History: Reports: Migraine Denies: Seizures Endocrine Medical History: GI Medical History: Reports: Hiatal Hernia Musculoskeltal Medical History: Reports: Arthritis - osteo, Fibromyalgia Psychiatric Medical History: Reports: Depression - & anxiety Hematology: Reports: Anemia - up until late 20's Past Surgical History Past Surgical History: Reports: Orthopedic Surgery - ganglion cyst, Tubal Ligation, Other - I&D right alexis-rectal abscess Social History Smoking Status: Never Smoker Hx Recreational Drug Use: No Drugs: None Hx Prescription Drug Abuse: No Family History Family History: Arthritis, DM, Hypertension, Malignancy Parental Family History Reviewed: Yes Children Family History Reviewed: No Sibling(s) Family History Reviewed.: No Medication/Allergy Home Medications: Albuterol Sulfate [Proair HFA Inhalation Aerosol 8.5 gm MDI] 2 puff IH Q4HP PRN 02/15/18 Beclomethasone Dipropionate [Qvar Redihaler] 1 puff IH BID 02/15/18 Budesonide [Pulmicort Neb 0.5 mg/2 ml Ampul] 0.5 mg NEB RTDAILY 02/15/18 Cetirizine HCl [Zyrtec 10 mg Tablet] 10 mg PO DAILY 02/15/18 Fluoxetine HCl [Prozac] 20 mg PO QAM 02/15/18 Fluticasone Propionate [Flonase Nasal [place] 50 Mcg/[place] 16 gm] 2 spray NASL QAM 02/15/18 Ipratropium/Albuterol Sulfate [Duoneb 3 ml Ampul] 3 ml NEB Q6HP PRN 02/15/18 Lamotrigine [Lamictal] 100 mg PO DAILY 02/15/18 Oxycodone HCl/Acetaminophen [Percocet 5-325 mg Tablet] 1 tab PO BIDP PRN Quetiapine Fumarate [Seroquel Xr] 150 mg PO WSUPPER 02/15/18 Allergies/Adverse Reactions: meperidine HCl [From Demerol] Allergy (Severe, Verified 02/15/18 09:40) Anaphylaxis prednisone [Prednisone] Allergy (Severe, Verified 02/15/18 09:40) swell-up sulfamethoxazole [From Bactrim] Allergy (Severe, Verified 02/15/18 09:40) Hives trimethoprim [From Bactrim] Allergy (Severe, Verified 02/15/18 09:40) Hives morphine [Morphine] Adverse Reaction (Mild, Verified 02/15/18 09:40) Hives Review of Systems Constitutional: PRESENT: fever(s) Eyes: PRESENT: other - no visual/hearingchanges Cardiovascular: PRESENT: other - no cough/chest pains Gastrointestinal: PRESENT: other - no abdominal pains Genitourinary: PRESENT: other - no dysuria Neurological: PRESENT: other - no seizures Hematologic/Lymphatic: PRESENT: other - no easy bruising Physical Exam Vital Signs: Temp Pulse Resp BP Pulse Ox 98.1 F 56 L 16 125/80 100 02/15/18 09:45 02/15/18 09:45 02/15/18 09:45 02/15/18 09:45 02/15/18 09:45 General appearance: PRESENT: mild distress Head exam: PRESENT: atraumatic Eye exam: PRESENT: conjunctiva pink Mouth exam: PRESENT: moist Neck exam: PRESENT: full ROM Respiratory exam: PRESENT: clear to auscultation nick Cardiovascular exam: PRESENT: RRR Pulses: PRESENT: normal radial pulses Vascular exam: PRESENT: normal capillary refill GI/Abdominal exam: PRESENT: soft Rectal exam: PRESENT: other - has exquisite tenderness and induration right alexis -rectal area Extremities exam: PRESENT: full ROM Neurological exam: PRESENT: alert, oriented to person, oriented to place, oriented to time, oriented to situation Psychiatric exam: PRESENT: appropriate affect Skin exam: PRESENT: normal color, warm Results Laboratory Results: 02/15/18 12:08 02/15/18 12:08 02/15/18 02/15/18 12:08 12:08 WBC 7.1 RBC 4.31 Hgb 12.0 Hct 33.9 L MCV 79 L MCH 27.8 MCHC 35.3 RDW 15.3 H Plt Count 325 Seg Neutrophils % 55.5 Lymphocytes % 38.6 Monocytes % 4.5 Eosinophils % 0.3 Basophils % 1.1 Absolute Neutrophils 4.0 Absolute Lymphocytes 2.7 Absolute Monocytes 0.3 Absolute Eosinophils 0.0 Absolute Basophils 0.1 Sodium 141.4 Potassium 4.2 Chloride 107 Carbon Dioxide 23 Anion Gap 11 BUN 8 Creatinine 0.56 Est GFR ( Amer) > 60 Est GFR (Non-Af Amer) > 60 Glucose 87 Calcium 9.0 Assessment & Plan - Diagnosis (1) right alexis-rectal abscess Is this a current diagnosis for this admission?: Yes - Time Time Spent: 30 to 50 Minutes - Inpatient Certification Medical Necessity: Need For IV Fluids, Need for Pain Control, Need for IV Antibiotics, Need for Surgery - Plan Summary Plan Summary: For I&D right alexis-rectal abscess
[2018-02-15] MEDS ORDERED: DIPHENHYDRAMINE HCL 50 MG/ML VIAL IV ONE (14:15)
[2018-02-15] MEDS: METRONIDAZOLE 500 MG/NS RTU 500 MG/100 ML RTUPB IV SCH ×2 (14:20→22:00)
[2018-02-15] MEDS: ERTAPENEM SODIUM 1 GM in NORMAL SALINE 50 ML IV SCH (17:50)
[2018-02-15] MEDS: HYDROMORPHONE HCL INJ/PF 2 MG/ML AMPULE IV PRN (18:27)
[2018-02-15] MEDS ORDERED: ONDANSETRON 4 MG TAB.RAPDIS PO ONE (20:45)
[2018-02-15] MEDS ORDERED: CIPROFLOXACIN 400 MG/D5W RTU 400 MG/200 ML RTUPB IV SCH (22:00)
[2018-02-15] MEDS ORDERED: FENTANYL CITRATE INJ/PF 100 MCG/2 ML AMPUL ONE (22:08)
[2018-02-15] MEDS ORDERED: MIDAZOLAM 2 MG/2 ML INJ ONE (22:08)
[2018-02-15] MEDS ORDERED: PROPOFOL INJ 200 MG/20 ML VIAL IV ONE (22:08)
[2018-02-15] MEDS ORDERED: BUPIVACAINE HCL/DEX-WATER/PF 15 MG/2 ML AMPULE ONE (22:10)
[2018-02-15] MEDS ORDERED: KETAMINE HCL INJ 500 MG/10 ML VIAL ONE (22:17)
[2018-02-15] MEDS ORDERED: DEXMEDETOMIDINE INJ 80 MCG/20 ML VIAL IV ONE (22:20)
[2018-02-15] MEDS ORDERED: LIDOCAINE 1% INJ-PF (10 MG/ML) 30 ML SDV ONE (23:04)
[2018-02-15] MEDS ORDERED: PROMETHAZINE HCL INJ 25 MG/1 ML VIAL IV PRN (23:20)
[2018-02-15] MEDS ORDERED: DIPHENHYDRAMINE HCL 50 MG/ML VIAL IV PRN (23:20)
[2018-02-15] MEDS ORDERED: FENTANYL CITRATE INJ/PF 100 MCG/2 ML AMPUL IV PRN ×3 (23:20)
[2018-02-15] MEDS ORDERED: ONDANSETRON HCL INJ/PF 4 MG/2 ML SDV IV PRN (23:49)
[2018-02-15] MEDS ORDERED: VANCOMYCIN HCL INJ 1000 MG VIAL IV PRN (23:52)
--- NOTE | 2018-02-16 00:01 | OPERATIVE REPORT E ---
Operative Report NAME: JASMEET FERRO : 1980 AGE: 37Y DATE OF SURGERY: 02/15/2018 ROOM: 537 PREOPERATIVE DIAGNOSIS: ABSCESS RIGHT GLUTEAL AREA/PERIRECTAL AREA. POSTOPERATIVE DIAGNOSIS: ABSCESS RIGHT GLUTEAL AREA/PERIRECTAL AREA. OPERATION: Incision and drainage right perirectal abscess. SURGEON: LEILA INFANTE M.D. ANESTHESIA: Local, MAC. INDICATION: This is a 37-year-old female with pain along the right perirectal area for the past few days, worse today. She did have a previous I and D around the same site, according to the patient, in March 2017. PROCEDURE: After adequate IV sedation, the patient was placed in a prone jackknife position. Perirectal area was then prepped and draped in the usual sterile fashion. Appropriate timeout was called. Local anesthesia infiltrated along the right perirectal area, which was initially noted to be markedly tender and slightly indurated. There appears to be a possible ingrown hair in this area. After local anesthesia was infiltrated, with use of an 18-gauge needle, the area was aspirated of about 1 mL of purulent material. An incision and drainage was then carried out to a distance of about 5 cm long x about 2 cm deep. Finger dissection was done and no other evidence of abscess noted. The area was pulse lavaged with a liter of saline. The cavity roughly measured about 5 cm long x 2 cm deep x 1 cm wide. It appears that the abscess cavity does not go into the area of the rectum. Also, it appears to be right at the subcutaneous level. Following pulse lavage, the area was subsequently packed with a bottle of 1/4 inch Iodoform gauze. Sterile 4 x 4s were placed. The patient tolerated the procedure well. Needle, instrument and sponge count were all correct. Estimated blood loss was about 10 mL. The patient was brought to the recovery room in satisfactory condition. DICTATING PHYSICIAN: LEILA INFANTE M.D. [id number] PHY#: [id number] ID: [id number] JOB#: [id number] ACCT: [id number] cc:LEILA INFANTE M.D. >
[2018-02-16] MEDS ORDERED: VANCOMYCIN HCL 1,000 MG in DEXTROSE 5%-WATER 250 ML IV SCH (01:00)
[2018-02-16] MEDS: HYDROMORPHONE HCL INJ/PF 2 MG/ML AMPULE IV PRN ×5 (03:16→22:37)
[2018-02-16] MEDS ORDERED: VANCOMYCIN HCL INJ 1000 MG VIAL ONE (04:15)
[2018-02-16] MEDS: NORMAL SALINE 1000 ML 1,000 ML IV PRN ×3 (04:15→18:58)
[2018-02-16] MEDS: OXYCODONE-ACETAMINOPHEN 5-325 MG TABLET PO PRN ×4 (04:16→19:01)
[2018-02-16] MEDS ORDERED: METRONIDAZOLE 500 MG/NS RTU 500 MG/100 ML RTUPB IV SCH (06:00)
[2018-02-16] MEDS: ONDANSETRON 4 MG TAB.RAPDIS PO PRN ×3 (09:34→22:39)
[2018-02-16] MEDS: ERTAPENEM SODIUM 1 GM in NORMAL SALINE 50 ML IV SCH (14:54)
--- NOTE | 2018-02-16 20:35 | PDOC PROGRESS REPORT ---
Subjective Progress Note for:: 02/16/18 Subjective:: Still with a lot of pains and not able to tolerate enough po intake Reason For Visit: RIGHT ORI RECTAL ABSCESS Physical Exam Vital Signs: Temp Pulse Resp BP Pulse Ox 99.0 F 65 16 130/83 H 100 02/16/18 16:00 02/16/18 16:00 02/16/18 16:00 02/16/18 16:00 02/16/18 16:00 Intake & Output 02/15/18 02/16/18 02/17/18 06:59 06:59 06:59 Intake Total 3400 1451 Output Total 5 Balance 3395 1451 Weight 103.9 kg Exam: abd is soft and non tender Results Laboratory Results: 02/15/18 12:08 02/15/18 12:08 Assessment & Plan - Diagnosis (1) right ori-rectal abscess Is this a current diagnosis for this admission?: Yes - Time Time Spent with patient: 15-24 minutes - Plan Summary Plan Summary: Need to gradually improve po intake Will remove packing in am Requesting to see Dr Berger for history of granuloma Continue IV amtibiotic
[2018-02-17] MEDS: NORMAL SALINE 1000 ML 1,000 ML IV PRN (04:32)
[2018-02-17] MEDS: HYDROMORPHONE HCL INJ/PF 2 MG/ML AMPULE IV PRN ×2 (04:32→08:21)
[2018-02-17 05:37] LABS: ABSOLUTE LYMPHOCYTES (AUTO) 1.7 10^3/uL (0.5-4.7); ABSOLUTE MONOCYTES (AUTO) 0.3 10^3/uL (0.1-1.4); ABSOLUTE NEUT (AUTO) 5.2 10^3/uL (1.7-8.2); BASOPHILS % (AUTO) 0.4 % (0-2); EOSINOPHILS % (AUTO) 0.3 % (0-6); HEMATOCRIT 34.4 % (36.0-47.0); HEMOGLOBIN 12.4 g/dL (12.0-15.5); LYMPHOCYTES % (AUTO) 23.2 % (13-45); MEAN CORPUSCULAR HEMOGLOBIN 28.1 pg (27.0-33.4); MEAN CORPUSCULAR HGB CONC 36.1 g/dL (32.0-36.0); MEAN CORPUSCULAR VOLUME 78 fl (80-97); MONOCYTES % (AUTO) 4.4 % (3-13); PLATELET COUNT 320 10^3/uL (150-450); RED BLOOD COUNT 4.42 10^6/uL (3.72-5.28); RED CELL DISTRIBUTION WIDTH 15.2 % (11.5-14.0); SEGMENTED NEUTROPHILS % (AUTO) 71.7 % (42-78); TOTAL CELLS COUNTED % (AUTO) 100 %; WHITE BLOOD COUNT 7.3 10^3/uL (4.0-10.5)
[2018-02-17 06:03] LABS: ANION GAP 15 (5-19); BLOOD UREA NITROGEN 4 mg/dL (7-20); CALCIUM 9.3 mg/dL (8.4-10.2); CARBON DIOXIDE 20 mmol/L (22-30); CHLORIDE 105 mmol/L (98-107); GLUCOSE 87 mg/dL (75-110); PHOSPHORUS 3.6 mg/dL (2.5-4.5); POTASSIUM 3.7 mmol/L (3.6-5.0); SODIUM 140.1 mmol/L (137-145)
[2018-02-17] MEDS: OXYCODONE-ACETAMINOPHEN 5-325 MG TABLET PO PRN (06:52)
[2018-02-17] MEDS ORDERED: ALBUTEROL SULFATE HFA (90 MCG/PUFF) 200 PUFF/8.5 GM MDI IH PRN (09:16)
[2018-02-17] MEDS ORDERED: FLUTICASONE/UMECLIDIN/VILANTER 100-62.5-25 MCG/DOSE IH SCH (10:00)
[2018-02-17] MEDS ORDERED: FLUTICASONE NASAL SPRAY 50 MCG/SPRY 120 SPRAY/16 GM NASL SCH (10:00)
[2018-02-17] MEDS: ONDANSETRON 4 MG TAB.RAPDIS PO PRN (10:18)
[2018-02-17] MEDS: ERTAPENEM SODIUM 1 GM in NORMAL SALINE 50 ML IV SCH (16:17)
--- NOTE | 2018-02-17 17:31 | PDOC CONSULTATION ---
Consultation Consult Date: 02/17/18 Attending physician:: LEILA SAUL Consult reason:: Nausea, vomiting, constipation History of Present Illness Admission Date/PCP: 02/15/18 11:30 HECTOR BRYANT Patient complains of: Nausea, vomiting, and no BM since 02/14/2018. History of Present Illness: JASMEET FERRO is a 37 year old female who was admitted to [facility] on 02/14/2018 with rectal pain due to a perirectal abscess. This was drained by Dr. Saul on 02/16/2018. The patient has complained of abdominal pain, constipation and nausea and vomiting since then. It just so happened that about 1 hour prior to my arrival at the patient's room she finally had a BM. Upon my visit the patient stated that she was feeling very well. Her only request was that she wanted to go home. She denied abdominal pain or nausea. Past Medical History Cardiac Medical History: Reports: Hypertension - depending on pain level Denies: Coronary Artery Disease, Myocardial Infarction Pulmonary Medical History: Reports: Asthma, Pneumonia - Sarcoidosis lungs Denies: Bronchitis, Chronic Obstructive Pulmonary Disease (COPD) Neurological Medical History: Reports: Migraine Denies: Seizures Endocrine Medical History: GI Medical History: Reports: Hiatal Hernia Musculoskeltal Medical History: Reports: Arthritis - osteo, Fibromyalgia Psychiatric Medical History: Reports: Depression - & anxiety Hematology: Reports: Anemia - up until late 20's Past Surgical History Past Surgical History: Reports: Orthopedic Surgery - ganglion cyst, Tubal Ligation, Other - I&D right alexis-rectal abscess Social History Smoking Status: Unknown if Ever Smoked Last Time Smoked: 03/08/2015 Frequency of Alcohol Use: None Hx Recreational Drug Use: No Drugs: None Hx Prescription Drug Abuse: No - Advance Directive Resuscitation Status: Full Code Family History Family History: Arthritis, DM, Hypertension, Malignancy Parental Family History Reviewed: Yes Children Family History Reviewed: Yes Sibling(s) Family History Reviewed.: Yes Medication/Allergy Home Medications: Albuterol Sulfate [Proair HFA Inhalation Aerosol 8.5 gm MDI] 2 puff IH Q4HP PRN 02/15/18 Beclomethasone Dipropionate [Qvar Redihaler] 1 puff IH BID 02/15/18 Budesonide [Pulmicort Neb 0.5 mg/2 ml Ampul] 0.5 mg NEB RTDAILY 02/15/18 Cetirizine HCl [Zyrtec 10 mg Tablet] 10 mg PO DAILY 02/15/18 Fluoxetine HCl [Prozac] 20 mg PO QAM 02/15/18 Fluticasone Propionate [Flonase Nasal [place] 50 Mcg/[place] 16 gm] 2 spray NASL QAM 02/15/18 Ipratropium/Albuterol Sulfate [Duoneb 3 ml Ampul] 3 ml NEB Q6HP PRN 02/15/18 Lamotrigine [Lamictal] 100 mg PO DAILY 02/15/18 Oxycodone HCl/Acetaminophen [Percocet 5-325 mg Tablet] 1 tab PO BIDP PRN Quetiapine Fumarate [Seroquel Xr] 150 mg PO WSUPPER 02/15/18 Allergies/Adverse Reactions: meperidine HCl [From Demerol] Allergy (Severe, Verified 02/15/18 09:40) Anaphylaxis prednisone [Prednisone] Allergy (Severe, Verified 02/15/18 09:40) swell-up sulfamethoxazole [From Bactrim] Allergy (Severe, Verified 02/15/18 09:40) Hives trimethoprim [From Bactrim] Allergy (Severe, Verified 02/15/18 09:40) Hives morphine [Morphine] Adverse Reaction (Mild, Verified 02/15/18 09:40) Hives Review of Systems Constitutional: ABSENT: anorexia, fever(s), weight gain, weight loss Eyes: ABSENT: visual disturbances Ears: ABSENT: hearing changes Nose, Mouth, and Throat: ABSENT: headache(s), sore throat, vertigo Cardiovascular: ABSENT: chest pain, dyspnea on exertion, orthropnea, palpitations Respiratory: ABSENT: cough, sputum Gastrointestinal: PRESENT: constipation - now relieved. ABSENT: abdominal pain , diarrhea, heartburn, nausea, vomiting Genitourinary: ABSENT: dysuria Musculoskeletal: ABSENT: back pain, joint swelling, muscle weakness Integumentary: ABSENT: diaphoresis, rash, wounds Neurological: ABSENT: abnormal gait, abnormal speech, confusion, dizziness, paresthesias, syncope Psychiatric: ABSENT: anxiety, depression Endocrine: ABSENT: cold intolerance, heat intolerance, polydipsia, polyuria Hematologic/Lymphatic: ABSENT: easy bleeding, easy bruising Physical Exam Vital Signs: Temp Pulse Resp BP Pulse Ox 99.2 F 72 17 130/85 H 100 02/17/18 14:58 02/17/18 14:58 02/17/18 14:58 02/17/18 14:58 02/17/18 14:58 Intake & Output 02/16/18 02/17/18 02/18/18 06:59 06:59 06:59 Intake Total 3400 1913 1200 Output Total 5 Balance 3395 1913 1200 Weight 103.9 kg 106.5 kg General appearance: PRESENT: no acute distress, well-developed, well-nourished Head exam: PRESENT: atraumatic, normocephalic Eye exam: PRESENT: conjunctiva pink, EOMI, PERRLA. ABSENT: scleral icterus Ear exam: PRESENT: normal external ear exam Mouth exam: PRESENT: moist, tongue midline Neck exam: ABSENT: carotid bruit, JVD, lymphadenopathy, thyromegaly Respiratory exam: PRESENT: other - No increased work of breathing. No wheezes, rales, or rhonchi.. ABSENT: rales, rhonchi, wheezes Cardiovascular exam: PRESENT: RRR, other - No lateral PMI. No thrills.. ABSENT : diastolic murmur, rubs, systolic murmur Pulses: PRESENT: normal femoral pulses, normal dorsalis pedis pul Vascular exam: PRESENT: normal capillary refill GI/Abdominal exam: PRESENT: normal bowel sounds, soft. ABSENT: distended, guarding, mass, organolmegaly, rebound, tenderness Rectal exam: PRESENT: deferred Extremities exam: PRESENT: full ROM. ABSENT: calf tenderness, clubbing, pedal edema Neurological exam: PRESENT: alert, awake, oriented to person, oriented to place , oriented to time, oriented to situation, CN II-XII grossly intact. ABSENT: motor sensory deficit Psychiatric exam: PRESENT: appropriate affect, normal mood. ABSENT: homicidal ideation, suicidal ideation Skin exam: PRESENT: dry, intact, warm. ABSENT: cyanosis, rash Results Laboratory Results: 02/17/18 05:24 02/17/18 05:24 02/17/18 02/17/18 05:24 05:24 WBC 7.3 RBC 4.42 Hgb 12.4 Hct 34.4 L MCV 78 L MCH 28.1 MCHC 36.1 H RDW 15.2 H Plt Count 320 Seg Neutrophils % 71.7 Lymphocytes % 23.2 Monocytes % 4.4 Eosinophils % 0.3 Basophils % 0.4 Absolute Neutrophils 5.2 Absolute Lymphocytes 1.7 Absolute Monocytes 0.3 Absolute Eosinophils 0.0 Absolute Basophils 0.0 Sodium 140.1 Potassium 3.7 Chloride 105 Carbon Dioxide 20 L Anion Gap 15 BUN 4 L Creatinine 0.57 Est GFR ( Amer) > 60 Est GFR (Non-Af Amer) > 60 Glucose 87 Calcium 9.3 Phosphorus 3.6 Magnesium 1.8 Assessment & Plan - Diagnosis (1) Constipation Qualifiers: Constipation type: drug induced constipation Qualified Code(s): K59.03 - Drug induced constipation Is this a current diagnosis for this admission?: Yes Plan: Miralax daily with prn docusate sodium for no BM for 24 hours. The current episode appears to have resolved. (2) Nausea and vomiting in adult patient Is this a current diagnosis for this admission?: Yes Plan: Due to constipation and resolved following BM. (3) right alexis-rectal abscess Is this a current diagnosis for this admission?: Yes Plan: Drained by Dr. Saul. As per primary team. (4) Fibromyalgia Is this a current diagnosis for this admission?: Yes Plan: Chronic. Continue home medications. (5) Reflux esophagitis Is this a current diagnosis for this admission?: Yes Plan: PPI (6) Sarcoidosis of lung Is this a current diagnosis for this admission?: Yes Plan: Stable. Continue home medications. (7) Vitamin D deficiency Is this a current diagnosis for this admission?: Yes Plan: Contiue home medications. - Time Time Spent: 50 to 70 Minutes Medications reviewed and adjusted accordingly: Yes - Plan Summary Plan Summary: Thank you for the opportunity to participate in the care of this pleasant patient.
[2018-02-17] MEDS ORDERED: DOCUSATE SODIUM 100 MG CAPSULE PO PRN (17:33)
[2018-02-17] MEDS ORDERED: DOCUSATE SODIUM 100 MG CAPSULE PO SCH (18:00)
[2018-02-17 18:30] VITALS: BP 139/69
--- NOTE | 2018-02-18 07:56 | DISCHARGE SUMMARY E ---
Discharge Summary NAME: JASMEET FERRO : 1980 AGE: 37Y ADMITTED: 02/15/2018 DISCHARGED: 02/17/2018 FINAL DIAGNOSES: 1. Right perirectal abscess. 2. History of benign granulomatous disease. PROCEDURE DONE: Incision and drainage right perirectal abscess 02/15/2018. HOSPITAL COURSE: This is a 37-year-old female who was admitted for pains along the right perirectal area for the past few days. It started to be very tender, but appears to have an abscess. The patient then taken to the OR for I and D of right perirectal abscess on the late night of 02/15/2018. Postoperatively, the patient did complain a lot of pains and unable to tolerate diet until the day of discharge. Consultation obtained with Dr. Berger for her benign granulomatous disease and is following her for this. The patient then able to finally have a bowel movement and able to eat on the day of discharge. He was then discharged improve on 02/17/2018. The packing was removed with 2 previous sitz baths. She was given a prescription for Augmentin 500 mg p.o. twice a day for about a week. She is to continue sitz baths at home twice a day for about a week and to be followed up by her primary physician, Dr. Walton. DICTATING PHYSICIAN: LEILA INFANTE M.D. [id number] PHY#: [id number] ID: [id number] JOB#: [id number] ACCT: [id number] cc:LEILA INFANTE M.D. >
[2018-02-18] MEDS ORDERED: POLYETHYLENE GLYCOL 3350 POWDER 17 GM/1 PACKET PO SCH (10:00)
== END 2018-02-17 18:59 | disposition home health service (06) ==
LOC: ER 09:39 → INTOOBSV 11:30 → EH 11:30 → 5 14:52
PROVIDERS: ADMIT Surgery; ATTEND Surgery
PROC: 0D9P3ZZ Drainage of Rectum, Percutaneous Approach (ICD-10-PCS; principal; 2018-02-15 17:45)
DX: K61.1 Rectal abscess (principal); D71 Functional disorders of polymorphonuclear neutrophils; G89.18 Other acute postprocedural pain; L02.31 Cutaneous abscess of buttock; R11.2 Nausea with vomiting, unspecified; K59.03 Drug induced constipation; M79.7 Fibromyalgia; K21.0 Gastro-esophageal reflux disease with esophagitis; D86.0 Sarcoidosis of lung; E55.9 Vitamin D deficiency, unspecified; J45.909 Unspecified asthma, uncomplicated; R50.9 Fever, unspecified; Z98.51 Tubal ligation status
CPT/HCPCS: 99284; 36415 ×2; 87070; 87205; 83735; 84100; 85025 ×2; 87075; 87077; 80048 ×2; 46040; A6266; J2250; J3490 ×7; J1200; S0119 ×3; J3010; J1335 ×2; J1170 ×3; J7030 ×3; J2704; J3370; J0744; 902; G0378

== ENCOUNTER 2018-03-20 09:57 | Emergency (ER) | payer MEDICAID ==
[2018-03-20 10:02] VITALS: BP 126/78
[2018-03-20] MEDS ORDERED: OXYCODONE-ACETAMINOPHEN 5-325 MG TABLET PO ONE (10:39)
--- NOTE | 2018-03-20 10:43 | ER Document Report ---
HPI - HPI Patient complains to provider of: Abscess Onset: Other - 2 days Onset/Duration: Persistent Quality of pain: Achy Pain Level: 4 Context: Patient presents complaining of abscess to the groin area for the past 2 days. Patient denies any fever. Associated Symptoms: Other - Skin abscess. denies: Fever Exacerbated by: Movement Relieved by: Denies Similar symptoms previously: Yes Recently seen / treated by doctor: No - ROS ROS below otherwise negative: Yes Systems Reviewed and Negative: Yes All other systems reviewed and negative - CONSTITUTIONAL Constitutional: DENIES: Fever - REPRODUCTIVE Reproductive: DENIES: : - MUSCULOSKELETAL Musculoskeletal: REPORTS: Extremity pain - DERM Skin Color: Erythema Past Medical History - General Information source: Patient - Social History Smoking Status: Never Smoker Frequency of alcohol use: None Drug Abuse: None Occupation: None Lives with: Family Family History: Arthritis, DM, Hypertension, Malignancy - Past Medical History Cardiac Medical History: Reports: Hx Hypertension - depending on pain level Denies: Hx Coronary Artery Disease, Hx Heart Attack Pulmonary Medical History: Reports: Hx Asthma, Hx Pneumonia - Sarcoidosis lungs Denies: Hx Bronchitis, Hx COPD Neurological Medical History: Reports: Hx Migraine. Denies: Hx Cerebrovascular Accident, Hx Seizures Endocrine Medical History: Renal/ Medical History: Reports: Hx Ovarian Cysts. Denies: Hx Peritoneal Dialysis GI Medical History: Reports: Hx Gastritis, Hx Hiatal Hernia, Hx Ulcer - H pylori , sarcoidosis, fibromyalgia Musculoskeletal Medical History: Reports Hx Arthritis - osteo, Reports Hx Fibromyalgia Skin Medical History: Denies Hx MRSA Psychiatric Medical History: Reports: Hx Depression - & anxiety Past Surgical History: Reports: Hx Gynecologic Surgery - polyps, ovarian cysts, Hx Orthopedic Surgery - ganglion cyst, Hx Tubal Ligation, Other - I&D right alexis -rectal abscess - Immunizations Immunizations up to date: Yes Hx Diphtheria, Pertussis, Tetanus Vaccination: Yes - January 2015 Hx Pneumococcal Vaccination: 05/08/17 Vertical Provider Document - CONSTITUTIONAL Agree With Documented VS: Yes Exam Limitations: No Limitations General Appearance: WD/WN, No Apparent Distress - INFECTION CONTROL TRAVEL OUTSIDE OF THE [place] IN LAST 30 DAYS: No - HEENT HEENT: Atraumatic, Normocephalic - NECK Neck: Normal Inspection - RESPIRATORY Respiratory: No Respiratory Distress - BACK Back: Normal Inspection - MUSCULOSKELETAL/EXTREMETIES Musculoskeletal/Extremeties: MAIOANA, SARIAH - NEURO Level of Consciousness: Awake, Alert, Appropriate Motor/Sensory: No Motor Deficit - DERM Integumentary: Warm, Dry, Abscess - right groin area Course - Vital Signs Vital signs: Temp Pulse Resp BP Pulse Ox 98.1 F 67 16 126/78 H 99 03/20/18 10:00 03/20/18 10:00 03/20/18 10:00 03/20/18 10:00 03/20/18 10:00 Procedures - Incision and Drainage Right Groin Type: Simple Anesthetic type: 1% Lidocaine Blade size: 11 I&D procedure: Other - surgical scrub Incision Method: Incision made by scalpel Amount/type of drainage: sm amount of purulent drainage Discharge - Discharge Clinical Impression: Abscess, Encounter for incision and drainage procedure Condition: Good Disposition: HOME, SELF-CARE Instructions: Abscess ([facility]), Clindamycin ([facility]), Oral Narcotic Medication ([facility]) , Post Incision and Drainage Additional Instructions: Return immediately for any new or worsening symptoms Followup with your primary care provider, call tomorrow to make a followup appointment Prescriptions: Clindamycin HCl [Cleocin Hcl] 300 mg PO QID #28 capsule Naproxen [Naprosyn 250 Nmg Tablet] 1 tab PO BID #14 tablet Referrals: HECTOR BRYANT MD [Primary Care Provider] - Follow up tomorrow
== END 2018-03-20 12:13 | disposition home or self-care (01) ==
LOC: ER 09:57
DX: L02.214 Cutaneous abscess of groin (principal); I10 Essential (primary) hypertension; J45.909 Unspecified asthma, uncomplicated
CPT/HCPCS: 99283

== ENCOUNTER 2018-03-27 07:27 | Emergency (ER) | payer MEDICAID ==
--- NOTE | 2018-03-27 09:37 | ER Document Report ---
HPI - HPI Pain Level: 4 Context: Patient is a 37-year-old female with a history of sarcoidosis complaining of facial pain, nausea 1 week. Patient has a low-grade temperature ranging from 99-101. Associated Symptoms: Body/muscle aches, Nonproductive cough, Headache, Nausea, Sinus pain/drainage Exacerbated by: Denies Relieved by: Denies Similar symptoms previously: Yes Recently seen / treated by doctor: No - ROS Systems Reviewed and Negative: Yes All other systems reviewed and negative - EENT EENT: REPORTS: Sore Throat. DENIES: Eye problems - CARDIOVASCULAR Cardiovascular: DENIES: Chest pain - GASTROINTESTINAL Gastrointestinal: DENIES: Abdominal Pain - REPRODUCTIVE Reproductive: DENIES: : Past Medical History - General Information source: Patient - Social History Smoking Status: Former Smoker Chew tobacco use (# tins/day): No Frequency of alcohol use: None Drug Abuse: None Lives with: Family Family History: Arthritis, DM, Hypertension, Malignancy Patient has suicidal ideation: No Patient has homicidal ideation: No - Medical History Medical History: Other - Sarcoidosis - Past Medical History Cardiac Medical History: Reports: Hx Hypertension - depending on pain level Denies: Hx Coronary Artery Disease, Hx Heart Attack Pulmonary Medical History: Reports: Hx Asthma, Hx Pneumonia - Sarcoidosis lungs Denies: Hx Bronchitis, Hx COPD Neurological Medical History: Reports: Hx Migraine. Denies: Hx Cerebrovascular Accident, Hx Seizures Endocrine Medical History: Renal/ Medical History: Reports: Hx Ovarian Cysts. Denies: Hx Peritoneal Dialysis GI Medical History: Reports: Hx Gastritis, Hx Hiatal Hernia, Hx Ulcer - H pylori , sarcoidosis, fibromyalgia Musculoskeletal Medical History: Reports Hx Arthritis - osteo, Reports Hx Fibromyalgia Skin Medical History: Denies Hx MRSA Psychiatric Medical History: Reports: Hx Depression - & anxiety Past Surgical History: Reports: Hx Gynecologic Surgery - polyps, ovarian cysts, Hx Orthopedic Surgery - ganglion cyst, Hx Tubal Ligation, Other - I&D right alexis -rectal abscess - Immunizations Immunizations up to date: Yes Hx Diphtheria, Pertussis, Tetanus Vaccination: Yes - January 2015 Hx Pneumococcal Vaccination: 05/08/17 Vertical Provider Document - CONSTITUTIONAL Agree With Documented VS: Yes Exam Limitations: No Limitations - INFECTION CONTROL TRAVEL OUTSIDE OF THE [place] IN LAST 30 DAYS: No - HEENT HEENT: Atraumatic, PERRLA, Pharyngeal Tenderness, Pharyngeal Erythema Notes: Tender over bilateral frontal sinuses and left maxillary sinus - NECK Neck: Normal Inspection, Supple - RESPIRATORY Respiratory: Breath Sounds Normal, No Respiratory Distress - CARDIOVASCULAR Cardiovascular: Regular Rate, Regular Rhythm - GI/ABDOMEN Gastrointestinal: Abdomen Soft - MUSCULOSKELETAL/EXTREMETIES Musculoskeletal/Extremeties: SARIAH LOVE - NEURO Level of Consciousness: Awake, Alert - DERM Integumentary: Warm, Dry Course - Re-evaluation Re-evalutation: 03/27/18 09:35 History and physical are consistent with an acute uncomplicated sinusitis. Patient has no signs of sepsis or dehydration. Will provide course of antibiotics. Home care, Pranay care follow-up and ED return precautions were discussed with the patient. Patient is stable for discharge and agreeable with plan - Vital Signs Vital signs: Temp Pulse Resp BP Pulse Ox 99.0 F 81 16 138/86 H 99 03/27/18 07:34 03/27/18 07:34 03/27/18 07:34 03/27/18 07:34 03/27/18 07:34 Discharge - Discharge Clinical Impression: Sinusitis Qualifiers: Sinusitis location: frontal Chronicity: acute Recurrence: non-recurrent Qualified Code(s): J01.10 - Acute frontal sinusitis, unspecified Condition: Stable Disposition: HOME, SELF-CARE Instructions: Sinusitis ([facility]), Antibiotic Therapy ([facility]) Additional Instructions: Take your antibiotics as prescribed A yeast medicine, Diflucan, has been prescribed. Take that after your antibiotic is complete I recommend taking Mucinex D in addition to the prescribed medications Increase your water intake Follow-up with your primary care symptoms persist Prescriptions: Amox Tr/Potassium Clavulanate [Augmentin 875-125 Tablet] 1 tab PO BID 10 Days tablet Fluconazole [Diflucan] 150 mg PO ONCE PRN #1 tablet PRN Reason: Forms: Return to Work Referrals: HECTOR BRYANT MD [Primary Care Provider] - Follow up as needed
[2018-03-27 09:58] VITALS: BP 136/82
== END 2018-03-27 09:58 | disposition home or self-care (01) ==
LOC: ER 07:27
DX: J01.10 Acute frontal sinusitis, unspecified (principal); R51 Headache; M79.1 Myalgia; R05 Cough; R11.0 Nausea; J02.9 Acute pharyngitis, unspecified; I10 Essential (primary) hypertension; Z87.891 Personal history of nicotine dependence
CPT/HCPCS: 99283

== ENCOUNTER → 2018-05-02 | Outpatient (CLI) | payer MEDICAID ==
--- NOTE | 2018-05-02 14:41 | RADIOLOGY REPORT (SQ) ---
EXAM DESCRIPTION: U/S NON-OB PELVIS W/O DOP COMPLETED DATE/TIME: 05/02/2018 2:32 pm REASON FOR STUDY: LOWER ABD PAIN UNSPEC (R10.30) R10.30 LOWER ABDOMINAL PAIN, UNSPECIFIED COMPARISON: None. TECHNIQUE: Dynamic and static grayscale images acquired of the pelvis via transabdominal approach an d recorded on PACS. Additional selected color Doppler and spectral images recorded. LIMITATIONS: None. FINDINGS: Prior hysterectomy and right oophorectomy. Left ovary is not visualized. No free fluid. IMPRESSION: No abnormality identified. TECHNICAL DOCUMENTATION: JOB ID: [id number] [employer]- All Rights Reserved Rev-12/23 Reading location - IP/workstation name: [email or web address]
== END ==
LOC: RAD 13:33
PROVIDERS: ATTEND Internal Medicine
DX: R10.30 Lower abdominal pain, unspecified (principal)
CPT/HCPCS: 76856

== ENCOUNTER 2018-08-20 08:57 | Emergency (ER) | payer MEDICAID ==
--- NOTE | 2018-08-20 09:28 | ER Document Report ---
ED Medical Screen (RME) - General Chief Complaint: Abscess Stated Complaint: POSSIBLE ABSCESS Time Seen by Provider: 08/20/18 09:27 Mode of Arrival: Wheelchair Information source: Patient, Relative TRAVEL OUTSIDE OF THE [place] IN LAST 30 DAYS: No - HPI Patient complains to provider of: abscess Onset: Other - pt. with c/o abscess in L inguinal area for the past 2 days. - Related Data Allergies/Adverse Reactions: meperidine HCl [From Demerol] Allergy (Severe, Verified 08/20/18 09:01) Anaphylaxis prednisone [Prednisone] Allergy (Severe, Verified 08/20/18 09:01) swell-up sulfamethoxazole [From Bactrim] Allergy (Severe, Verified 08/20/18 09:01) Hives trimethoprim [From Bactrim] Allergy (Severe, Verified 08/20/18 09:01) Hives morphine [Morphine] Adverse Reaction (Mild, Verified 08/20/18 09:01) Hives Past Medical History - Past Medical History Cardiac Medical History: Reports: Hx Hypertension - depending on pain level Denies: Hx Coronary Artery Disease, Hx Heart Attack Pulmonary Medical History: Reports: Hx Asthma, Hx Pneumonia - Sarcoidosis lungs Denies: Hx Bronchitis, Hx COPD Neurological Medical History: Reports: Hx Migraine. Denies: Hx Cerebrovascular Accident, Hx Seizures Endocrine Medical History: Renal/ Medical History: Reports: Hx Ovarian Cysts. Denies: Hx Peritoneal Dialysis GI Medical History: Reports: Hx Gastritis, Hx Hiatal Hernia, Hx Ulcer - H pylori, sarcoidosis, fibromyalgia Musculoskeltal Medical History: Reports Hx Arthritis - osteo, Reports Hx Fibrom yalgia Skin Medical History: Denies Hx MRSA Psychiatric Medical History: Reports: Hx Depression - & anxiety Past Surgical History: Reports: Hx Gynecologic Surgery - polyps, ovarian cysts, Hx Orthopedic Surgery - ganglion cyst, Hx Tubal Ligation, Other - I&D right alexis-rectal abscess - Immunizations Immunizations up to date: Yes Hx Diphtheria, Pertussis, Tetanus Vaccination: Yes - January 2015 History of Influenza Vaccine for 05/2017 - 10/2017 Season: Yes Influenza Administration Date for 05/2017 - 10/2017 Season: 06/08/17 Physical Exam - Vital signs Vitals: Temp Pulse Resp BP Pulse Ox 98.7 F 67 16 125/93 H 100 08/20/18 09:20 08/20/18 09:20 08/20/18 09:20 08/20/18 09:20 08/20/18 09:20 Course - Vital Signs Vital signs: Temp Pulse Resp BP Pulse Ox 98.7 F 67 16 125/93 H 100 08/20/18 09:20 08/20/18 09:20 08/20/18 09:20 08/20/18 09:20 08/20/18 09:20 Doctor's Discharge - Discharge Referrals: HECTOR BRYANT MD [Primary Care Provider] - Follow up as needed
[2018-08-20] MEDS ORDERED: CLINDAMYCIN 600 MG/D5W RTU 600 MG/50 ML RTUPB IV ONE (10:14)
[2018-08-20] MEDS ORDERED: NORMAL SALINE 1000 ML 1,000 ML IV ONE (10:15)
[2018-08-20] MEDS ORDERED: KETOROLAC TROMETHAMINE INJ/PF 30 MG/1 ML SDV IV ONE (10:15)
[2018-08-20] MEDS ORDERED: ONDANSETRON HCL INJ/PF 4 MG/2 ML SDV IV ONE (10:16)
[2018-08-20] MEDS ORDERED: FENTANYL CITRATE INJ/PF 100 MCG/2 ML AMPUL IV ONE (10:16)
--- NOTE | 2018-08-20 10:16 | ER Document Report ---
ED Skin Rash/Insect Bite/Abscs - General Mode of Arrival: Wheelchair Information source: Patient TRAVEL OUTSIDE OF THE [place] IN LAST 30 DAYS: No <ELLIOT BARRETO - Last Filed: 08/20/18 10:17> <ALISTAIR MORRELL - Last Filed: 08/20/18 13:30> - General Chief Complaint: Abscess Stated Complaint: POSSIBLE ABSCESS Time Seen by Provider: 08/20/18 09:27 Notes: 38-year-old female who presents to the emergency department today with complai nts of possible abscess to the left lower abdomen. Patient states she does not know when this began but she "was scratching the area" and noticed the pain today. Patient has a history of multiple abscesses along with hydradenitis suppurativa. (ELLIOT BARRETO) - Related Data Allergies/Adverse Reactions: meperidine HCl [From Demerol] Allergy (Severe, Verified 08/20/18 09:01) Anaphylaxis prednisone [Prednisone] Allergy (Severe, Verified 08/20/18 09:01) swell-up sulfamethoxazole [From Bactrim] Allergy (Severe, Verified 08/20/18 09:01) Hives trimethoprim [From Bactrim] Allergy (Severe, Verified 08/20/18 09:01) Hives morphine [Morphine] Adverse Reaction (Mild, Verified 08/20/18 09:01) Hives Past Medical History - General Information source: Patient, Relative - Social History Smoking Status: Former Smoker Frequency of alcohol use: None Drug Abuse: None Family History: Arthritis, DM, Hypertension, Malignancy Patient has suicidal ideation: No Patient has homicidal ideation: No - Past Medical History Cardiac Medical History: Reports: Hx Hypertension - depending on pain level Pulmonary Medical History: Reports: Hx Asthma, Hx Pneumonia - Sarcoidosis lungs Neurological Medical History: Reports: Hx Migraine Endocrine Medical History: Renal/ Medical History: Reports: Hx Ovarian Cysts GI Medical History: Reports: Hx Gastritis, Hx Hiatal Hernia, Hx Ulcer - H pylori, sarcoidosis, fibromyalgia Musculoskeletal Medical History: Reports Hx Arthritis - osteo, Reports Hx Fibromyalgia Psychiatric Medical History: Reports: Hx Depression - & anxiety Past Surgical History: Reports: Hx Gynecologic Surgery - polyps, ovarian cysts, Hx Orthopedic Surgery - ganglion cyst, Hx Tubal Ligation, Other - I&D right alexis-rectal abscess - Immunizations Immunizations up to date: Yes Hx Diphtheria, Pertussis, Tetanus Vaccination: Yes - January 2015 Hx Pneumococcal Vaccination: 05/08/17 <EUSEBIO BARRETOON - Last Filed: 08/20/18 10:17> Review of Systems - Review of Systems Constitutional: No symptoms reported EENT: No symptoms reported Cardiovascular: No symptoms reported Respiratory: No symptoms reported Gastrointestinal: No symptoms reported Genitourinary: No symptoms reported Female Genitourinary: No symptoms reported Musculoskeletal: No symptoms reported Skin: See HPI, Other - "abscess" left lower abdomen Hematologic/Lymphatic: No symptoms reported Neurological/Psychological: No symptoms reported -: Yes All other systems reviewed and negative <ELLIOT BARRETO - Last Filed: 08/20/18 10:17> Physical Exam <ELLIOT BARRETO - Last Filed: 08/20/18 10:17> - Vital signs Vitals: Temp Pulse Resp BP Pulse Ox 98.7 F 67 16 125/93 H 100 08/20/18 09:20 08/20/18 09:20 08/20/18 09:20 08/20/18 09:20 08/20/18 09:20 - Notes Notes: Physical Exam: General: Alert, appears uncomfortable. HEENT: Normocephalic. Atraumatic. PERRL. Extraocular movements intact. Oropharyn x clear. Neck: Supple. Non-tender. Respiratory: No respiratory distress. Clear and equal breath sounds bilaterally. Cardiovascular: Regular rate and rhythm. Abdominal: Tenderness with palpation just superior to the inguinal ligament on the left, see skin exam. No distension. Normal Bowel Sounds. Back: Non-tender. No deformity or step off. Extremities: Moves all four extremities. Upper extremities: Normal inspection. Normal ROM. Lower extremities: Normal inspection. No edema. Normal ROM. Neurological: Normal cognition. AAOx4. Normal speech. Psychological: Normal affect. Normal Mood. Skin: Left lower transverse fat fold skin appears thinned and has a shiny appearance with exquisite tenderness with palpation. Tenderness appears to be somewhat deep, no definitive induration palpated although somewhat limited secondary to pain. (ELLIOT BARRETO) Course - Laboratory Result Diagrams: 08/20/18 10:53 08/20/18 10:53 - Diagnostic Test Radiology reviewed: Reports reviewed - Ultrasound shows superficial fluid collection with reactive lymph nodes. - Consults Dr. Brown Time consulted: 12:00 Consulted provider: will come to ER - Is in the operating room starting an appendectomy, will call back when the case is finished. <ALISTAIR MORRELL - Last Filed: 08/20/18 13:30> - Re-evaluation Re-evalutation: 08/20/18 13:28 Dr. Brown came to see the patient, did incision and drainage. See his note. She was discharged home with some Percocet, and doxycycline. She is to follow- up in the office next week. (ALISTAIR MORRELL) - Vital Signs Vital signs: Temp Pulse Resp BP Pulse Ox 98.7 F 67 16 125/93 H 100 08/20/18 09:20 08/20/18 09:20 08/20/18 09:20 08/20/18 09:20 08/20/18 09:20 - Laboratory Laboratory results interpreted by me: 08/20/18 08/20/18 10:53 10:53 MCV 79 L RDW 14.9 H Seg Neutrophils % 39.4 L Lymphocytes % 54.8 H BUN 6 L Discharge <ELLIOT BARRETO - Last Filed: 08/20/18 10:17> <ALISTAIR MORRELL - Last Filed: 08/20/18 13:30> - Discharge Clinical Impression: Abscess of left groin Condition: Stable Disposition: HOME, SELF-CARE Additional Instructions: Abscess You have an abscess (boil). This a pus-forming infection, usually due to staph. Some boils may be left to drain on their own, but most require lancing. From the time the tender lump first appears, it may be three or four days before the abscess is ready to elias. Local heat and rest help at this stage of treatment. An antibiotic may prevent spread of the infection. Once the abscess is opened, packing may be placed into it. This is done so pus is not sealed inside by premature closure of the cavity. The packing will be removed at your follow-up visit or you may be advised to remove it yourself at home. Sometimes this packing must be replaced a few times during healing. The wound will heal with surprisingly little scar. Depending on the size and location of an abscess, healing can take one to four weeks. You may shower and wash the area around the incision site two or three times a day. Antibiotics may be prescribed, but are usually not necessary after an abscess has been drained. If you develop fever, chilling, worsening pain, or increasing swelling in the area, call the doctor or return immediately. Take medication prescribed by Dr. Brown. Follow-up with Dr. Brown in the office this week. Referrals: HECTOR BRYANT MD [Primary Care Provider] - Follow up as needed KARL BROWN MD [ACTIVE STAFF] - Follow up in 3-5 days Scribe Attestation: 08/20/18 12:42 I personally performed the services described in the documentation, reviewed and edited the documentation which was dictated to the scribe in my presence, and it accurately records my words and actions. (ALISTAIR MORRELL) Scribe Documentation - Scribe Written by Vidya:: Vidya Nguyen, 08/20/2018 [id number] acting as scribe for :: Terence <ELLIOT BARRETO - Last Filed: 08/20/18 10:17>
[2018-08-20 11:21] LABS: ABSOLUTE MONOCYTES (AUTO) 0.2 10^3/uL (0.1-1.4); ABSOLUTE NEUT (AUTO) 2.1 10^3/uL (1.7-8.2); BASOPHILS % (AUTO) 0.5 % (0-2); EOSINOPHILS % (AUTO) 0.9 % (0-6); HEMOGLOBIN 12.7 g/dL (12.0-15.5); LYMPHOCYTES % (AUTO) 54.8 % (13-45); MEAN CORPUSCULAR HEMOGLOBIN 27.7 pg (27.0-33.4); MEAN CORPUSCULAR HGB CONC 35.2 g/dL (32.0-36.0); MEAN CORPUSCULAR VOLUME 79 fl (80-97); MONOCYTES % (AUTO) 4.4 % (3-13); PLATELET COUNT 313 10^3/uL (150-450); RED BLOOD COUNT 4.58 10^6/uL (3.72-5.28); RED CELL DISTRIBUTION WIDTH 14.9 % (11.5-14.0); SEGMENTED NEUTROPHILS % (AUTO) 39.4 % (42-78); TOTAL CELLS COUNTED % (AUTO) 100 %; WHITE BLOOD COUNT 5.4 10^3/uL (4.0-10.5)
--- NOTE | 2018-08-20 11:37 | RADIOLOGY REPORT (SQ) ---
EXAM DESCRIPTION: U/S ABDOMEN LIMITED W/O DOP COMPLETED DATE/TIME: 08/20/2018 11:25 am REASON FOR STUDY: Left groin abscess COMPARISON: None. TECHNIQUE: Dynamic and static grayscale images acquired of the localized site of clinical concern an d recorded on PACS. Additional selected color Doppler and spectral images recorded. SITE OF CONCERN: The left groin LIMITATIONS: None. FINDINGS: SKIN AND SUBCUTANEOUS TISSUES: There is a superficial fluid collection without blood flow and irregular borders. Consistent with abscess. There is also a reactive lymph node measuring 2 cm. DEEP SOFT TISSUES/MUSCLES: No masses. No fluid collections. No edema. VASCULAR: No increased or decreased vascularity. No occlusions. OTHER: No other significant finding. IMPRESSION: Small fluid collection subcutaneous consistent with abscess. Adjacent reactive lymph no de. TECHNICAL DOCUMENTATION: JOB ID: [id number] [employer]- All Rights Reserved Reading location - IP/workstation name: [email or web address]
[2018-08-20 11:43] LABS: ALANINE AMINOTRANSFERASE 24 U/L (9-52); ALBUMIN 4.3 g/dL (3.5-5.0); ALKALINE PHOSPHATASE 56 U/L (38-126); ANION GAP 10 (5-19); ASPARTATE AMINO TRANSFERASE 18 U/L (14-36); BILIRUBIN,DIRECT 0.1 mg/dL (0.0-0.4); BILIRUBIN,TOTAL 0.2 mg/dL (0.2-1.3); BLOOD UREA NITROGEN 6 mg/dL (7-20); CALCIUM 9.3 mg/dL (8.4-10.2); CARBON DIOXIDE 24 mmol/L (22-30); CHLORIDE 107 mmol/L (98-107); GLUCOSE 90 mg/dL (75-110); POTASSIUM 4.1 mmol/L (3.6-5.0); SODIUM 140.5 mmol/L (137-145); TOTAL PROTEIN 7.2 g/dL (6.3-8.2)
[2018-08-20] MEDS ORDERED: HYDROMORPHONE HCL INJ/PF 2 MG/ML AMPULE IV ONE (13:00)
[2018-08-20] MEDS ORDERED: LIDOCAINE 1% INJ-PF (10 MG/ML) 30 ML SDV ONE (13:03)
[2018-08-20 13:46] VITALS: BP 139/92
--- NOTE | 2018-08-20 21:59 | Operative Report ---
Nonrecallable Operative Report DATE OF SURGERY: 08/20/18 PREOPERATIVE DIAGNOSIS: Left groin abscess POSTOPERATIVE DIAGNOSIS: Same OPERATION: Incision and drainage of a left groin abscess SURGEON: KARL NEGRETE ANESTHESIA: Local TISSUE REMOVED OR ALTERED: None COMPLICATIONS: None apparent ESTIMATED BLOOD LOSS: Minimal PROCEDURE: Drains/implants: 4 x 4 gauze. Procedure in detail: After informed consent was obtained, the patient was laid in the supine position in the ER treatment room. The area of the left groin was prepped and draped in a normal sterile fashion. There was an indurated, fluctuant area in the left groin. 1% lidocaine was used to infiltrate the skin around the abscess. An 11 blade scalpel was used to open the abscess. A moderate amount of purulent material was expressed. The wound was then packed with 4 x 4 gauze. A dressing was then fashioned. The procedure was concluded. All sponge, instrument, and needle counts were correct x2. Condition: Stable.
--- NOTE | 2018-08-21 06:20 | PDOC CONSULTATION ---
Consultation Consult Date: 08/20/18 Consult reason:: Left groin abscess History of Present Illness Admission Date/PCP: HECTOR BRYANT History of Present Illness: JASMEET FERRO is a 38 year old female seen at the request of the emergency room physician. This patient has a history of multiple pubic area abscesses. She has been told she has hidradenitis. Patient reports 24 hours ago noting a painful, swollen area in the left groin. The patient reports that her pain is 10 out of 10. She denies any purulent drainage. Her pain radiates around into her back. Palpation makes the pain worse, nothing makes it better. She has undergone multiple I&D's in the past. Currently, she denies chest pain, shortness of breath, fevers, chills, nausea, vomiting, dizziness, orthostasis, blurry vision, sore throat, headache. Past Medical History Cardiac Medical History: Reports: Hypertension - depending on pain level Denies: Coronary Artery Disease, Myocardial Infarction Pulmonary Medical History: Reports: Asthma, Pneumonia - Sarcoidosis lungs Denies: Bronchitis, Chronic Obstructive Pulmonary Disease (COPD) Neurological Medical History: Reports: Migraine Denies: Seizures Endocrine Medical History: GI Medical History: Reports: Hiatal Hernia Musculoskeltal Medical History: Reports: Arthritis - osteo, Fibromyalgia Psychiatric Medical History: Reports: Depression - & anxiety Hematology: Reports: Anemia - up until late 20's Past Surgical History Past Surgical History: Reports: Orthopedic Surgery - ganglion cyst, Tubal Ligation, Other - I&D right alexis-rectal abscess Social History Smoking Status: Former Smoker Frequency of Alcohol Use: None Hx Recreational Drug Use: No Drugs: None Hx Prescription Drug Abuse: No Family History Family History: Arthritis, DM, Hypertension, Malignancy Parental Family History Reviewed: Yes Children Family History Reviewed: Yes Sibling(s) Family History Reviewed.: Yes Medication/Allergy Home Medications: Albuterol Sulfate [Proair HFA Inhalation Aerosol 8.5 gm MDI] 2 puff IH Q4HP PRN 02/15/18 Beclomethasone Dipropionate [Qvar Redihaler] 1 puff IH BID 02/15/18 Budesonide [Pulmicort Neb 0.5 mg/2 ml Ampul] 0.5 mg NEB RTDAILY 02/15/18 Cetirizine HCl [Zyrtec 10 mg Tablet] 10 mg PO DAILY 02/15/18 Fluoxetine HCl [Prozac] 20 mg PO QAM 02/15/18 Fluticasone Propionate [Flonase Nasal [place] 50 Mcg/[place] 16 gm] 2 spray NASL QAM 02/15/18 Ipratropium/Albuterol Sulfate [Duoneb 3 ml Ampul] 3 ml NEB Q6HP PRN 02/15/18 Lamotrigine [Lamictal] 100 mg PO DAILY 02/15/18 Oxycodone HCl/Acetaminophen [Percocet 5-325 mg Tablet] 1 tab PO BIDP PRN 02/15/18 Quetiapine Fumarate [Seroquel Xr] 150 mg PO WSUPPER 02/15/18 Naproxen [Naprosyn 250 Nmg Tablet] 1 tab PO BID #14 tablet 03/20/18 Amox Tr/Potassium Clavulanate [Augmentin 875-125 Tablet] 1 tab PO BID 10 Days tablet 03/27/18 Fluconazole [Diflucan] 150 mg PO ONCE PRN #1 tablet 03/27/18 Allergies/Adverse Reactions: meperidine HCl [From Demerol] Allergy (Severe, Verified 08/20/18 09:01) Anaphylaxis prednisone [Prednisone] Allergy (Severe, Verified 08/20/18 09:01) swell-up sulfamethoxazole [From Bactrim] Allergy (Severe, Verified 08/20/18 09:01) Hives trimethoprim [From Bactrim] Allergy (Severe, Verified 08/20/18 09:01) Hives morphine [Morphine] Adverse Reaction (Mild, Verified 08/20/18 09:01) Hives Review of Systems Constitutional: ABSENT: anorexia, chills, fatigue, fever(s) Eyes: ABSENT: visual disturbances Ears: ABSENT: hearing changes Nose, Mouth, and Throat: ABSENT: sore throat Cardiovascular: ABSENT: chest pain Respiratory: ABSENT: cough, dyspnea Gastrointestinal: PRESENT: abdominal pain - Left groin. ABSENT: nausea, vomiting Genitourinary: ABSENT: dysuria Musculoskeletal: ABSENT: back pain Integumentary: PRESENT: wounds - Left groin abscess. ABSENT: pruritus Neurological: ABSENT: abnormal speech, confusion, convulsions, dizziness Psychiatric: ABSENT: anxiety, depression Endocrine: ABSENT: cold intolerance, heat intolerance Hematologic/Lymphatic: ABSENT: easy bleeding, easy bruising Physical Exam Vital Signs: Temp Pulse Resp BP Pulse Ox 98.8 F 67 18 139/92 H 97 08/20/18 13:43 08/20/18 13:43 08/20/18 13:43 08/20/18 13:43 08/20/18 13:43 Intake & Output 08/19/18 08/20/18 08/21/18 06:59 06:59 06:59 Intake Total 1050 Balance 1050 General appearance: PRESENT: obese Head exam: PRESENT: atraumatic, normocephalic Eye exam: PRESENT: EOMI, PERRLA Mouth exam: PRESENT: neck supple Teeth exam: ABSENT: poor dentation Neck exam: ABSENT: meningismus, tenderness, thyromegaly, tracheal deviation Respiratory exam: PRESENT: unlabored. ABSENT: chest wall tenderness, tachypnea, wheezes Cardiovascular exam: PRESENT: RRR Pulses: PRESENT: normal radial pulses Vascular exam: ABSENT: pallor GI/Abdominal exam: PRESENT: soft. ABSENT: distended, guarding, rebound, tenderness Rectal exam: PRESENT: deferred Extremities exam: ABSENT: clubbing Musculoskeletal exam: ABSENT: deformity Neurological exam: PRESENT: alert, awake, oriented to person, oriented to place, oriented to time, oriented to situation Psychiatric exam: ABSENT: agitated, anxious, depressed Focused psych exam: ABSENT: delusional Skin exam: PRESENT: other - 2 cm erythematous, indurated, painful nodule in the left groin consistent with abscess Results Laboratory Results: 08/20/18 10:53 08/20/18 10:53 08/20/18 08/20/18 10:53 10:53 WBC 5.4 RBC 4.58 Hgb 12.7 Hct 36.0 MCV 79 L MCH 27.7 MCHC 35.2 RDW 14.9 H Plt Count 313 Seg Neutrophils % 39.4 L Lymphocytes % 54.8 H Monocytes % 4.4 Eosinophils % 0.9 Basophils % 0.5 Absolute Neutrophils 2.1 Absolute Lymphocytes 3.0 Absolute Monocytes 0.2 Absolute Eosinophils 0.0 Absolute Basophils 0.0 Sodium 140.5 Potassium 4.1 Chloride 107 Carbon Dioxide 24 Anion Gap 10 BUN 6 L Creatinine 0.63 Est GFR ( Amer) > 60 Est GFR (Non-Af Amer) > 60 Glucose 90 Calcium 9.3 Total Bilirubin 0.2 AST 18 ALT 24 Alkaline Phosphatase 56 Total Protein 7.2 Albumin 4.3 Impressions: Abdomen Ultrasound 08/20/18 10:17 IMPRESSION: Small fluid collection subcutaneous consistent with abscess. Adjacent reactive lymph node. Assessment & Plan - Diagnosis (1) Groin abscess Is this a current diagnosis for this admission?: Yes - Plan Summary Plan Summary: This is a 38-year-old female with a left groin abscess. I recommend an incision and drainage as definitive treatment. The patient has agreed to this. Risks/benefits discussed, informed consent obtained, and all questions answered.
== END 2018-08-20 13:46 | disposition home or self-care (01) ==
LOC: ER 08:57
DX: L02.214 Cutaneous abscess of groin (principal); I10 Essential (primary) hypertension; J45.909 Unspecified asthma, uncomplicated; F32.9 Major depressive disorder, single episode, unspecified; F41.9 Anxiety disorder, unspecified; Z79.899 Other long term (current) drug therapy; Z79.51 Long term (current) use of inhaled steroids; Z88.5 Allergy status to narcotic agent; Z88.8 Allergy status to other drugs, medicaments and biological substances; Z88.1 Allergy status to other antibiotic agents; Z87.891 Personal history of nicotine dependence
CPT/HCPCS: 99284; 96375; 96365; 36415; 85025; 80053; 76705; 10060; S0077; J3010; J3490; J1885; J1170; J2405; J7030